=== PATIENT | female | born 1955 | race Caucasian/White ===

== ENCOUNTER 2022-11-25 20:37 | Emergency (ER) | payer MEDICARE, SELFPAY ==
[2022-11-25 20:41] VITALS: BP 132/79; PULSE 79; RESP 18; TEMP 36.6; O2SAT 96
[2022-11-25 21:34] LABS: Bilirubin Urine NEGATIVE (NEGATIVE); Blood Urine TRACE-I (NEGATIVE); Clarity Urine CLEAR (CLEAR); Color Urine LT. YELLOW (YELLOW); Glucose Urine UA NEGATIVE (NEGATIVE); Ketones Urine NEGATIVE (NEGATIVE); Leukocyte Esterase Urine NEGATIVE (NEGATIVE); Nitrite Urine NEGATIVE (NEGATIVE); Protein Urine NEGATIVE (NEG/TRACE); Urobilinogen Urine 0.2 EU/dL (0.2-1.0); pH Urine 5.5 (5.0-9.0)
[2022-11-25 21:35] LABS: Urine Microscopic Indicated NO
--- NOTE | 2022-11-25 21:51 | ED.GENADUL1 ---
HPI - General Adult General Chief complaint: Urogenital-Female Stated complaint: UTI ISSUES Time Seen by Provider: 11/25/22 20:48 Source: patient Mode of arrival: walk-in Limitations: no limitations Related Data Allergies Allergy/AdvReac Type Severity Reaction Status Date / Time No Known Drug Allergies Allergy Verified 11/25/22 20:41 Exam Constitutional Vital Signs - 24 hr 11/25/22 20:41 Temperature 98 F Pulse Rate [Monitor] 79 Respiratory Rate 18 Blood Pressure [Left Arm] 132/79 H Pulse Oximetry 96 Oxygen Delivery Method Room Air Course Vital Signs Vital signs: Vital Signs Temperature 98 F 11/25/22 20:41 Pulse Rate 79 11/25/22 20:41 Respiratory Rate 18 11/25/22 20:41 Blood Pressure 132/79 H 11/25/22 20:41 Pulse Oximetry 96 11/25/22 20:41 Oxygen Delivery Method Room Air 11/25/22 20:41 Temperature 98 F 11/25/22 20:41 Pulse Rate 79 11/25/22 20:41 Respiratory Rate 18 11/25/22 20:41 Blood Pressure 132/79 H 11/25/22 20:41 Pulse Oximetry 96 11/25/22 20:41 Oxygen Delivery Method Room Air 11/25/22 20:41 Medical Decision Making Lab Data Labs: Lab Results 11/25/22 Range/Units 21:20 Urine Color Lt. yellow (YELLOW) Urine Clarity Clear (CLEAR) Urine pH 5.5 (5.0-9.0) Ur Specific [place] 1.020 (1.005-1.025) Urine Protein Negative (NEG/TRACE) mg/dL Urine Glucose (UA) Negative (NEGATIVE) mg/dL Urine Ketones Negative (NEGATIVE) mg/dL Urine Occult Blood Trace-i (NEGATIVE) Urine Nitrite Negative (NEGATIVE) Urine Bilirubin Negative (NEGATIVE) Urine Urobilinogen 0.2 (0.2-1.0) EU/dL Ur Leukocyte Esterase Negative (NEGATIVE) Discharge Plan Discharge Chief Complaint: Urogenital-Female Referrals: Jj Zuñiga MD [Primary Care Provider] - 1 week
[2022-11-25 22:12] LABS: Basophils Percent Auto 0.3 % (0.2-2.0); Eosinophils Absolute Auto 0.2 10^3/uL (0.0-0.7); Eosinophils Percent Auto 2.8 % (0.9-7.0); Hematocrit 45.3 % (36.0-48.0); Hemoglobin 14.8 g/dL (12.0-16.0); Immature Granulocytes Abs Auto 0.01 10^3/uL (0.00-0.03); Immature Granulocytes Pct Auto 0.1 % (0.0-0.5); Lymphocytes Absolute Auto 2.2 10^3/uL (1.2-3.8); Mean Corpuscular HGB Conc 32.7 g/dL (29.9-35.2); Mean Corpuscular Hemoglobin 30.9 pg (26.7-34.0); Mean Corpuscular Volume 94.6 fL (81.0-99.0); Mean Platelet Volume 9.4 fL (9.5-13.5); Monocytes Absolute Auto 0.6 10^3/uL (0.3-0.8); Monocytes Percent Auto 7.5 % (1.7-12.0); Neutrophils Absolute Auto 4.7 10^3/uL (1.4-6.5); Neutrophils Percent Auto 61.3 % (43.0-75.0); Platelet Count 206 10^3/uL (150-450); Red Blood Count 4.79 10^6/uL (4.20-5.40); White Blood Count 7.7 10^3/uL (4.0-11.0)
[2022-11-25 22:27] LABS: Alanine Aminotransferase 49 U/L (14-59); Albumin Level 3.9 g/dL (3.4-5.0); Alkaline Phosphatase 129 U/L (46-116); Anion Gap 12.8; Aspartate Amino Transferase 47 U/L (15-37); BUN Creatinine Ratio 9.7; Bilirubin Total 0.4 mg/dL (0.2-1.0); Calcium 9.3 mg/dL (8.5-10.1); Carbon Dioxide 28.2 mmol/L (21.0-32.0); Chloride 101 mmol/L (98-107); Estimated GFR (African America >60 (>=60); Estimated GFR (Non-African Ame >60 (>=60); Globulin 4.1 g/dL; Glucose 147 mg/dL (74-106); Magnesium 1.6 mg/dL (1.8-2.4); Sodium 139 mmol/L (136-145)
[2022-11-25] MEDS: POTASSIUM CHLORIDE 10 MEQ ER TABLET 40 MEQ PO (23:31)
[2022-11-25] MEDS: MAGNESIUM OXIDE 400 MG TABLET PO (23:32)
--- NOTE | 2022-11-26 04:44 | ED_ITS ---
HPI - General Adult General Chief complaint: Urogenital-Female Stated complaint: UTI ISSUES Time Seen by Provider: 11/25/22 20:48 Source: patient Mode of arrival: walk-in Limitations: no limitations History of Present Illness HPI narrative: the patient coming to the Emergency Room for two days history of diarrhea associated with no abdominal pain no nausea no vomiting the patient did have a history of recurring diarrhea with hypokalemia and she also had a urine test done at home off to her daughter recommended one but she had no burning with urination or any fever or any frequency The patient is coming to the Emergency Room with concern that she could be hypokalemic again because of the diarrhea for the last two days There was no blood in stool Review of systems otherwise negative Related Data Allergies Allergy/AdvReac Type Severity Reaction Status Date / Time No Known Drug Allergies Allergy Verified 11/25/22 20:41 Review of Systems ROS Status of ROS 10 or more systems reviewed and unremarkable except as noted in history and below Exam Narrative Exam Narrative: Nurses notes and vital signs reviewed and patient is not hypoxic. General: Well-appearing and in no apparent distress. Skin: Warm, dry, no pallor noted. No rash. Head: Normocephalic, atraumatic. Neck: Supple, non-tender. Eye: Pupils are equal, round and EOMI. No scleral icterus. Ears, Nose, Mouth, and Throat: TM are clear, no nasal mucosal hypertrophy. Oral mucosa is moist, no posterior oropharynx erythema, uvula is mid-line Cardiovascular: Regular Rate and Rhythm without murmur, gallop or rub. Respiratory: No accessory muscle use or respiratory distress. Lungs are clear to auscultation, no wheezing, rales or rhonchi Chest Wall: no tenderness Back: No midline thoracic or lumbar vertebral tenderness. No CVA tenderness Musculoskeletal: normal ROM, no calf or popliteal tenderness, no lower extremity edema/swelling GI: Abdomen is soft, non-distended. Normal bowel sounds. No masses appreciated. No tenderness to palpation. No rebound, guarding, or rigidity noted. Neurological: A&O x4. No cranial nerve dysfunction observed. No truncal ataxia. Moves all extremities. Sensation intact. Psychiatric: Cooperative and interactive. Normal mood and affect. Constitutional Vital Signs - 24 hr 11/25/22 20:41 Temperature 98 F Pulse Rate [Monitor] 79 Respiratory Rate 18 Blood Pressure [Left Arm] 132/79 H Pulse Oximetry 96 Oxygen Delivery Method Room Air Course Vital Signs Vital signs: Vital Signs Temperature 98 F 11/25/22 20:41 Pulse Rate 79 11/25/22 20:41 Respiratory Rate 18 11/25/22 20:41 Blood Pressure 132/79 H 11/25/22 20:41 Pulse Oximetry 96 11/25/22 20:41 Oxygen Delivery Method Room Air 11/25/22 20:41 Temperature 98 F 11/25/22 20:41 Pulse Rate 79 11/25/22 20:41 Respiratory Rate 18 11/25/22 20:41 Blood Pressure 132/79 H 11/25/22 20:41 Pulse Oximetry 96 11/25/22 20:41 Oxygen Delivery Method Room Air 11/25/22 20:41 Medical Decision Making MDM Narrative Medical decision making narrative: presenting with gastroenteritis symptoms with no nausea or vomiting but only diarrhea for the last two days, five bouts of diarrhea today CBC and chem C should not acute significant pathology except for hypokalemia and hypomagnesemia that is corrected in the Emergency Room with by mouth potassium and magnesium Continue supportive care at home The patient is to followup with primary care physician in next 2-3 days or to return to the emergency department should any of the signs or symptoms worsen or new symptoms develop. The patient agrees with the following Diagnosis and Treatment plan and the patient will be discharged home. Lab Data Labs: Lab Results 11/25/22 11/25/22 Range/Units 21:20 22:06 WBC 7.7 (4.0-11.0) 10^3/uL RBC 4.79 (4.20-5.40) 10^6/uL Hgb 14.8 (12.0-16.0) g/dL Hct 45.3 (36.0-48.0) % MCV 94.6 (81.0-99.0) fL MCH 30.9 (26.7-34.0) pg MCHC 32.7 (29.9-35.2) g/dL RDW 13.0 (11.0-15.0) % Plt Count 206 (150-450) 10^3/uL MPV 9.4 L (9.5-13.5) fL Neut % (Auto) 61.3 (43.0-75.0) % Lymph % (Auto) 28.0 (20.5-60.0) % [place] % (Auto) 7.5 (1.7-12.0) % Eos % (Auto) 2.8 (0.9-7.0) % Baso % (Auto) 0.3 (0.2-2.0) % Neut # (Auto) 4.7 (1.4-6.5) 10^3/uL Lymph # (Auto) 2.2 (1.2-3.8) 10^3/uL [place] # (Auto) 0.6 (0.3-0.8) 10^3/uL Eos # (Auto) 0.2 (0.0-0.7) 10^3/uL Baso # (Auto) 0.0 (0.0-0.1) 10^3/uL Abs Immat Gran (auto) 0.01 (0.00-0.03) 10^3/uL Imm/Tot Granulo (auto) 0.1 (0.0-0.5) % Sodium 139 (136-145) mmol/L Potassium 3.0 L (3.5-5.1) mmol/L Chloride 101 (98-107) mmol/L Carbon Dioxide 28.2 (21.0-32.0) mmol/L Anion Gap 12.8 BUN 9.0 (7.0-18.0) mg/dL Creatinine 0.93 (0.55-1.02) mg/dL Est GFR ( Amer) >60 (>=60) Est GFR (Non-Af Amer) >60 (>=60) BUN/Creatinine Ratio 9.7 Glucose 147 H (74-106) mg/dL Calcium 9.3 (8.5-10.1) mg/dL Magnesium 1.6 L (1.8-2.4) mg/dL Total Bilirubin 0.4 (0.2-1.0) mg/dL AST 47 H (15-37) U/L ALT 49 (14-59) U/L Alkaline Phosphatase 129 H (46-116) U/L Total Protein 8.0 (6.4-8.2) g/dL Albumin 3.9 (3.4-5.0) g/dL Globulin 4.1 g/dL Albumin/Globulin Ratio 1.0 Urine Color Lt. yellow (YELLOW) Urine Clarity Clear (CLEAR) Urine pH 5.5 (5.0-9.0) Ur Specific [place] 1.020 (1.005-1.025) Urine Protein Negative (NEG/TRACE) mg/dL Urine Glucose (UA) Negative (NEGATIVE) mg/dL Urine Ketones Negative (NEGATIVE) mg/dL Urine Occult Blood Trace-i (NEGATIVE) Urine Nitrite Negative (NEGATIVE) Urine Bilirubin Negative (NEGATIVE) Urine Urobilinogen 0.2 (0.2-1.0) EU/dL Ur Leukocyte Esterase Negative (NEGATIVE) Discharge Plan Discharge Chief Complaint: Urogenital-Female Clinical Impression: Gastroenteritis, Acute hypokalemia, Hypomagnesemia Patient Disposition: Home, Self-Care Time of Disposition Decision: 22:52 Mode of Transportation: Private Vehicle Instructions: Hypokalemia (ED) Stand Alone Forms: Portal Instructions Referrals: Jj Zuñiga MD [Primary Care Provider] - 1 week Discharge Date/Time: 11/25/22 23:51
== END 2022-11-25 23:51 | disposition home or self-care (01) ==
PROVIDERS: Emergency Provider Emergency Medicine; PCP Family Medicine
DX: K52.9 Noninfective gastroenteritis and colitis, unspecified (principal); E87.6 Hypokalemia; E83.42 Hypomagnesemia
CPT/HCPCS: 36415; 80053; 81003; 83735; 85025; 87493; 99283

== ENCOUNTER 2022-12-13 13:20 | Outpatient (OUT) | payer MEDICARE, SELFPAY ==
--- NOTE | 2022-12-13 13:55 | XR_ITS ---
The [place] [id number] Patient Name: KELIN WALDRON MRN: [id number] date: 1955 Sex: F Assigned Patient Location: [facility] Current Patient Location: [facility] Accession/Order Number: [id number] Exam Date: 12/13/2022 13:55 Report Date: 12/13/2022 20:47 At the request of: MILADYS ALANIZ Procedure: XR foot LT min 3V PROCEDURE: XR foot LT min 3V COMPARISON: 05/17/2022 HISTORY: LEFT FOOT PAIN FINDINGS: BONES:Partial calcaneal arthroplasty with subtalar fusion. No acute fracture, dislocation or mechanical failure. Contour deformity of the calcaneus suggests remote fracture. Moderate to marked degenerative changes most significant in the midfoot with joint space narrowing marginal osteophyte formation. Diffuse permeative pattern of the bones, osteopenia SOFT TISSUES:Negative. No visible soft tissue swelling. EFFUSION:None visible. OTHER: Negative. IMPRESSION: Stable postsurgical, posttraumatic and degenerative changes with no mechanical failure Electronically authenticated by: IRAIDA CARROLL Date: 12/13/2022 20:47
== END 2022-12-13 13:21 | disposition home or self-care (01) ==
LOC: RAD 13:20
PROVIDERS: PCP Family Medicine; Visit Provider Podiatrist Foot & Ankle Surgery
DX: M79.672 Pain in left foot (principal)
CPT/HCPCS: 73630

== ENCOUNTER 2022-12-15 13:04 | Observation (INO) | payer MEDICARE, SELFPAY ==
[2022-12-15] VITALS (29 sets, daily range): BP systolic 108–137; BP diastolic 70–87; PULSE 76–95; RESP 15–26; TEMP 36.8–37.2; O2SAT 90–98; BMI 27.5; BMI 25.5
--- NOTE | 2022-12-15 13:19 | ECG_ITS ---
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
--- NOTE | 2022-12-15 13:23 | ED.AMS1 ---
HPI - Altered Mental Status General Chief Complaint: Altered Mental Status Stated Complaint: UTI/URINATED ON HERSELF/FEVER/CAN'T STAND OR WALK Time Seen by Provider: 12/15/22 13:07 History of Present Illness HPI narrative: patient is a 67-year-old female to history of rheumatoid arthritis, diabetes who presents to the emergency department with her for the evaluation of altered mental status, urinary incontinence and fever that began this morning on waking. Patient's provides the entire history is the patient is altered, generally weak and unable to add any additional history. He states that the patient was feeling well and at her baseline last night when she went to bed. On waking this morning, the patient has been confused, unable to ambulate and has been incontinent of urine. He reports a temperature at home of 100.5 Fahrenheit. No medications were given for fever prior to arrival, although he did give her potassium pill prior to arrival she has a history of hypokalemia. She has had no recent upper respiratory symptoms, vomiting or diarrhea. No sick contacts in the home. Patient is awake, denies any pain and is alert and oriented to person only at this time. Related Data Home Medications Medication Instructions Recorded Confirmed alendronate 70 mg tablet 70 mg PO DAILY 12/15/22 12/15/22 atorvastatin 10 mg tablet 10 mg PO DAILY 12/15/22 12/15/22 folic acid 1 mg tablet 1 mg PO DAILY 12/15/22 12/15/22 indapamide 2.5 mg tablet 2.5 mg PO DAILY 12/15/22 12/15/22 meloxicam 15 mg tablet 15 mg PO DAILY 12/15/22 12/15/22 metformin 500 mg tablet 500 mg PO BID 12/15/22 12/15/22 methotrexate sodium 2.5 mg tablet 20 mg PO QWEEK 12/15/22 12/15/22 potassium chloride 10 mEq 40 meq PO DAILY 12/15/22 12/15/22 capsule,extended release prednisone 2.5 mg tablet 2.5 mg PO DAILY 12/15/22 12/15/22 trazodone 300 mg tablet 300 mg PO .at night 12/15/22 12/15/22 valacyclovir 500 mg PO DAILY 12/15/22 12/15/22 venlafaxine 75 mg capsule,extended 75 mg PO DAILY 12/15/22 12/15/22 release 24 hr Allergies Allergy/AdvReac Type Severity Reaction Status Date / Time No Known Drug Allergies Allergy Verified 12/15/22 13:19 Review of Systems ROS Constitutional Denies: fever or chills Ears, nose, mouth, and throat Denies: throat pain or neck pain Cardiovascular Denies: chest pain Respiratory Denies: shortness of breath or cough Gastrointestinal Denies: nausea or vomiting Genitourinary Reports: urinary incontinence Integumentary/Breast Denies: rash Neurological Reports: confusion; Denies: headache Allergic/Immunologic Denies: hives PFSH [facility] Social History Smoking status: Never smoker Exam Narrative Exam Narrative: Gen.: Awake, alert, in no distress Head: Normocephalic, atraumatic ENT: Moist mucous membranes Respiratory: No respiratory distress, lungs clear bilaterally Cardio: Regular rate and rhythm Gastrointestinal: Abdomen is soft, nondistended and nontender to palpation Extremities: Moves extremities equally, no injuries noted Psych: Normal mood and affect Neuro: patient is generally weak, requires three people to assist her from wheelchair to exam cart. She sits up on command and is able to raise her arms to remove her shirt, she follows commands to squeeze her hands and wiggle her toes, no unilateral weakness or deficit noted. No slurred speech or facial drooping noted. Skin: Warm, dry, intact Constitutional Vital Signs - 24 hr 12/15/22 13:19 12/15/22 13:24 12/15/22 13:27 Temperature 98.4 F Pulse Rate 94 H Pulse Rate [Monitor] 95 H Respiratory Rate 18 26 H Blood Pressure 127/87 H Blood Pressure [Left Arm] 114/84 H Pulse Oximetry 94 L 91 L Oxygen Delivery Method Room Air 12/15/22 13:27 12/15/22 13:36 12/15/22 13:40 Temperature Pulse Rate 94 H 89 88 Pulse Rate [Monitor] Respiratory Rate 25 H 23 19 Blood Pressure Blood Pressure [Left Arm] Pulse Oximetry 91 L 90 L 91 L Oxygen Delivery Method 12/15/22 13:50 Temperature Pulse Rate 85 Pulse Rate [Monitor] Respiratory Rate 24 Blood Pressure Blood Pressure [Left Arm] Pulse Oximetry 92 L Oxygen Delivery Method Course Vital Signs Vital signs: Vital Signs Temperature 98.4 F 12/15/22 13:19 Pulse Rate 95 H 12/15/22 13:19 Respiratory Rate 18 12/15/22 13:19 Blood Pressure 114/84 H 12/15/22 13:19 Pulse Oximetry 94 L 12/15/22 13:19 Oxygen Delivery Method Room Air 12/15/22 13:19 Temperature 98.4 F 12/15/22 13:19 Pulse Rate 85 12/15/22 13:50 Respiratory Rate 24 12/15/22 13:50 Blood Pressure 127/87 H 12/15/22 13:27 Pulse Oximetry 92 L 12/15/22 13:50 Oxygen Delivery Method Room Air 12/15/22 13:19 MDM - Altered Mental Status MDM Narrative Medical decision making narrative: On arrival to the emergency department, patient was placed and exam cart and immediately sent for stroke protocol CT of the brain and chest x-ray. She was found to have no acute abnormalities of the brain but chest x-ray shows increasing left lung opacity. Blood cultures and sepsis workup were ordered for the patient. She does not have a urinary tract infection. She maintained stable vital signs in the Emergency Room. We will treat for possible pneumonia with Levaquin, patient admitted to her PCP, Dr. Zuñiga for further evaluation and treatment. Last known normal was last night, she may require further testing in the Hospital. Medical Records Attestation: I reviewed the patient's medical records. Lab Data Attestation: I reviewed the patient's lab results. Labs: Lab Results 12/15/22 12/15/22 12/15/22 Range/Units 13:28 13:30 13:43 WBC 8.8 (4.0-11.0) 10^3/uL RBC 4.86 (4.20-5.40) 10^6/uL Hgb 15.0 (12.0-16.0) g/dL Hct 45.3 (36.0-48.0) % MCV 93.2 (81.0-99.0) fL MCH 30.9 (26.7-34.0) pg MCHC 33.1 (29.9-35.2) g/dL RDW 12.5 (11.0-15.0) % Plt Count 183 (150-450) 10^3/uL MPV 9.8 (9.5-13.5) fL Seg Neuts % (Manual) 82.0 Lymphocytes % (Manual) 11.0 L (20.5-60.0) % Monocytes % (Manual) 7.0 (1.7-12.0) % Eosinophils % (Manual) 0.0 L (0.9-7.0) % Basophils % (Manual) 0.0 L (0.2-2.0) % Neutrophils # (Manual) 7.21 H (1.4-6.5) 10^3/uL Lymphocytes # (Manual) 0.96 L (1.20-3.80) 10^3/uL Monocytes # (Manual) 0.61 (0.30-0.80) 10^3/uL Eosinophils # (Manual) 0.00 (0.00-0.70) 10^3/uL Basophils # (Manual) 0.00 (0.00-0.10) 10^3/uL Sodium 134 L (136-145) mmol/L Potassium 3.7 (3.5-5.1) mmol/L Chloride 99 (98-107) mmol/L Carbon Dioxide 26.5 (21.0-32.0) mmol/L Anion Gap 12.2 BUN 13.0 (7.0-18.0) mg/dL Creatinine 1.06 H (0.55-1.02) mg/dL Est GFR ( Amer) >60 (>=60) Est GFR (Non-Af Amer) 52 L (>=60) BUN/Creatinine Ratio 12.3 Glucose 162 H (74-106) mg/dL Lactate 2.0 (0.4-2.0) mmol/L Calcium 9.4 (8.5-10.1) mg/dL Magnesium 1.6 L (1.8-2.4) mg/dL Total Bilirubin 0.5 (0.2-1.0) mg/dL AST 36 (15-37) U/L ALT 40 (14-59) U/L Alkaline Phosphatase 114 (46-116) U/L Ammonia (11-32) umol/L Troponin I High Sens <4.0 L (4.0-51.3) pg/mL Total Protein 8.1 (6.4-8.2) g/dL Albumin 4.0 (3.4-5.0) g/dL Globulin 4.1 g/dL Albumin/Globulin Ratio 1.0 TSH 1.123 (0.358-3.740) uIU/mL Urine Color Yellow (YELLOW) Urine Clarity Clear (CLEAR) Urine pH 7.5 (5.0-9.0) Ur Specific [place] [employer] 1.020 (1.005-1.025) Urine Protein Negative (NEG/TRACE) mg/dL Urine Glucose (UA) Negative (NEGATIVE) mg/dL Urine Ketones Negative (NEGATIVE) mg/dL Urine Occult Blood Small A (NEGATIVE) Urine Nitrite Negative (NEGATIVE) Urine Bilirubin Negative (NEGATIVE) Urine Urobilinogen 1.0 (0.2-1.0) EU/dL Ur Leukocyte Esterase Negative (NEGATIVE) Urine RBC 5-10 A (0-2) #/HPF Urine WBC 0-2 A (NONE SEEN) #/HPF Ur Squamous Epith Cells Few A (NONE/RARE) #/LPF Urine Crystals None seen (None Seen) #/HPF Urine Bacteria Trace A (NONE SEEN) #/HPF Urine Casts Seen A (NONE SEEN) #/LPF Hyaline Casts Rare Urine Mucus Small A (NONE SEEN) Ur Culture Indicated? No POC Glucose 151 H (74-106) mg/dL 12/15/22 Range/Units 13:50 WBC (4.0-11.0) 10^3/uL RBC (4.20-5.40) 10^6/uL Hgb (12.0-16.0) g/dL Hct (36.0-48.0) % MCV (81.0-99.0) fL MCH (26.7-34.0) pg MCHC (29.9-35.2) g/dL RDW (11.0-15.0) % Plt Count (150-450) 10^3/uL MPV (9.5-13.5) fL Seg Neuts % (Manual) Lymphocytes % (Manual) (20.5-60.0) % Monocytes % (Manual) (1.7-12.0) % Eosinophils % (Manual) (0.9-7.0) % Basophils % (Manual) (0.2-2.0) % Neutrophils # (Manual) (1.4-6.5) 10^3/uL Lymphocytes # (Manual) (1.20-3.80) 10^3/uL Monocytes # (Manual) (0.30-0.80) 10^3/uL Eosinophils # (Manual) (0.00-0.70) 10^3/uL Basophils # (Manual) (0.00-0.10) 10^3/uL Sodium (136-145) mmol/L Potassium (3.5-5.1) mmol/L Chloride (98-107) mmol/L Carbon Dioxide (21.0-32.0) mmol/L Anion Gap BUN (7.0-18.0) mg/dL Creatinine (0.55-1.02) mg/dL Est GFR ( Amer) (>=60) Est GFR (Non-Af Amer) (>=60) BUN/Creatinine Ratio Glucose (74-106) mg/dL Lactate (0.4-2.0) mmol/L Calcium (8.5-10.1) mg/dL Magnesium (1.8-2.4) mg/dL Total Bilirubin (0.2-1.0) mg/dL AST (15-37) U/L ALT (14-59) U/L Alkaline Phosphatase (46-116) U/L Ammonia <10 L (11-32) umol/L Troponin I High Sens (4.0-51.3) pg/mL Total Protein (6.4-8.2) g/dL Albumin (3.4-5.0) g/dL Globulin g/dL Albumin/Globulin Ratio TSH (0.358-3.740) uIU/mL Urine Color (YELLOW) Urine Clarity (CLEAR) Urine pH (5.0-9.0) Ur Specific [place] [employer] (1.005-1.025) Urine Protein (NEG/TRACE) mg/dL Urine Glucose (UA) (NEGATIVE) mg/dL Urine Ketones (NEGATIVE) mg/dL Urine Occult Blood (NEGATIVE) Urine Nitrite (NEGATIVE) Urine Bilirubin (NEGATIVE) Urine Urobilinogen (0.2-1.0) EU/dL Ur Leukocyte Esterase (NEGATIVE) Urine RBC (0-2) #/HPF Urine WBC (NONE SEEN) #/HPF Ur Squamous Epith Cells (NONE/RARE) #/LPF Urine Crystals (None Seen) #/HPF Urine Bacteria (NONE SEEN) #/HPF Urine Casts (NONE SEEN) #/LPF Hyaline Casts Urine Mucus (NONE SEEN) Ur Culture Indicated? POC Glucose (74-106) mg/dL Imaging Data CT scan - head: Attestation: I have reviewed the pertinent imaging results. Radiologist's impression: Procedure: CT stroke head/brain wo con CT stroke head/brain wo con, 12/15/2022 1:28 PM EDT INDICATION: Altered mental status COMPARISON: Noncontrast CT of the head 04/28/2022. TECHNIQUE: Axial CT images of the brain from skull base to vertex, including portions of the face and sinuses, were obtained without contrast. Multiplanar reformatted images were generated and reviewed as needed. FINDINGS: No intracranial mass, hydrocephalus, midline shift or acute hemorrhage. No extra-axial collection. Periventricular and deep white matter microvascular ischemic change. Rosenthal-white matter differentiation is preserved. The paranasal sinuses and mastoid air cells are clear. Orbits are within normal limits. No acute skull fracture. IMPRESSION: No acute intracranial abnormality. Electronically authenticated by: MARCELO EUBANKS Date: 12/15/2022 13:43 Chest x-ray: Attestation: I have reviewed the pertinent imaging results. Radiologist's impression: Procedure: XR chest 1V EXAM: XR chest 1V at 1332 hours HISTORY: Altered mental status COMPARISON: 04/28/2022 TECHNIQUE: AP upright portable chest x-ray FINDINGS: Slightly increasing opacity is seen at the left lung base indicating atelectasis or infiltrate. The lungs otherwise clear, without other evidence of a focal infiltrate, effusion or pneumothorax. The heart is not enlarged and the vasculature is not distended. The osseous structures are grossly intact. IMPRESSION: Subtle increasing opacity is seen at the left lung base. This may be due to a small amount of atelectasis or infiltrate. The lungs are otherwise clear, and there is no evidence of cardiac decompensation. Electronically authenticated by: MILADYS MORALES Date: 12/15/2022 13:42 ECG Data Attestation: I personally reviewed and interpreted this ECG as follows: (normal sinus rhythm at a rate of ninety-eight, no acute ST elevation or ectopy. EKG reviewed by attending physician) ECG interpretation date: 12/15/22 ECG interpretation time: 13:46 Discharge Plan Discharge Chief Complaint: Altered Mental Status Patient Disposition: Admitted as Observation Time of Disposition Decision: 14:53 Prescriptions / Home Meds: No Action prednisone 2.5 mg tablet 2.5 mg PO DAILY atorvastatin 10 mg tablet 10 mg PO DAILY venlafaxine 75 mg capsule,extended release 24hr 75 mg PO DAILY trazodone 300 mg tablet 300 mg PO .at night potassium chloride 10 mEq capsule, extended release 40 meq PO DAILY valacyclovir 500 mg PO DAILY metformin 500 mg tablet 500 mg PO BID indapamide 2.5 mg tablet 2.5 mg PO DAILY folic acid 1 mg tablet 1 mg PO DAILY methotrexate sodium 2.5 mg tablet 20 mg PO QWEEK alendronate 70 mg tablet 70 mg PO DAILY meloxicam 15 mg tablet 15 mg PO DAILY Referrals: Jj Zuñiga MD [Primary Care Provider] - 1 week
[2022-12-15 13:31] LABS: Glucometer 151 mg/dL (74-106)
--- NOTE | 2022-12-15 13:31 | XR_ITS ---
The [address] [address] Patient Name: KELIN WALDRON MRN: [id number] date: 1955 Sex: F Assigned Patient Location: ED.MAIN Current Patient Location: ER Accession/Order Number: [id number] Exam Date: 12/15/2022 13:28 Report Date: 12/15/2022 13:42 At the request of: BLU DERAS Procedure: XR chest 1V EXAM: XR chest 1V at 1332 hours HISTORY: Altered mental status COMPARISON: 04/28/2022 TECHNIQUE: AP upright portable chest x-ray FINDINGS: Slightly increasing opacity is seen at the left lung base indicating atelectasis or infiltrate. The lungs otherwise clear, without other evidence of a focal infiltrate, effusion or pneumothorax. The heart is not enlarged and the vasculature is not distended. The osseous structures are grossly intact. IMPRESSION: Subtle increasing opacity is seen at the left lung base. This may be due to a small amount of atelectasis or infiltrate. The lungs are otherwise clear, and there is no evidence of cardiac decompensation. Electronically authenticated by: MILADYS MORALES Date: 12/15/2022 13:42
--- NOTE | 2022-12-15 13:33 | CT_ITS ---
The [address] [address] Patient Name: KELIN WALDRON MRN: [id number] date: 1955 Sex: F Assigned Patient Location: ER Current Patient Location: ER Accession/Order Number: [id number] Exam Date: 12/15/2022 13:28 Report Date: 12/15/2022 13:43 At the request of: BLU DERAS Procedure: CT stroke head/brain wo con CT stroke head/brain wo con, 12/15/2022 1:28 PM EDT INDICATION: Altered mental status COMPARISON: Noncontrast CT of the head 04/28/2022. TECHNIQUE: Axial CT images of the brain from skull base to vertex, including portions of the face and sinuses, were obtained without contrast. Multiplanar reformatted images were generated and reviewed as needed. FINDINGS: No intracranial mass, hydrocephalus, midline shift or acute hemorrhage. No extra-axial collection. Periventricular and deep white matter microvascular ischemic change. Rosenthal-white matter differentiation is preserved. The paranasal sinuses and mastoid air cells are clear. Orbits are within normal limits. No acute skull fracture. IMPRESSION: No acute intracranial abnormality. Electronically authenticated by: MARCELO EUBANKS Date: 12/15/2022 13:43
[2022-12-15 13:36] LABS: Hematocrit 45.3 % (36.0-48.0); Mean Corpuscular HGB Conc 33.1 g/dL (29.9-35.2); Mean Corpuscular Hemoglobin 30.9 pg (26.7-34.0); Mean Corpuscular Volume 93.2 fL (81.0-99.0); Mean Platelet Volume 9.8 fL (9.5-13.5); Platelet Count 183 10^3/uL (150-450); Red Blood Count 4.86 10^6/uL (4.20-5.40); Red Cell Distribution Width 12.5 % (11.0-15.0); White Blood Count 8.8 10^3/uL (4.0-11.0)
[2022-12-15] MEDS: 0.9 % SODIUM CHLORIDE 1,000 ML 1000 ML IV (13:44)
[2022-12-15 14:01] LABS: Alanine Aminotransferase 40 U/L (14-59); Alkaline Phosphatase 114 U/L (46-116); Anion Gap 12.2; Aspartate Amino Transferase 36 U/L (15-37); BUN Creatinine Ratio 12.3; Bilirubin Total 0.5 mg/dL (0.2-1.0); Calcium 9.4 mg/dL (8.5-10.1); Carbon Dioxide 26.5 mmol/L (21.0-32.0); Chloride 99 mmol/L (98-107); Estimated GFR (African America >60 (>=60); Estimated GFR (Non-African Ame 52 (>=60); Globulin 4.1 g/dL; Glucose 162 mg/dL (74-106); Potassium 3.7 mmol/L (3.5-5.1); Sodium 134 mmol/L (136-145); Thyroid Stimulating Hormone 1.123 uIU/mL (0.358-3.740); Total Protein 8.1 g/dL (6.4-8.2); Troponin I High Sensitivity <4.0 pg/mL (4.0-51.3)
[2022-12-15 14:04] LABS: Lymphocytes Absolute Manual 0.96 10^3/uL (1.20-3.80); Monocytes Absolute Manual 0.61 10^3/uL (0.30-0.80); Segmented Neut Absolute Manual 7.21 10^3/uL (1.4-6.5)
[2022-12-15 14:06] LABS: Bilirubin Urine NEGATIVE (NEGATIVE); Blood Urine SMALL (NEGATIVE); Clarity Urine CLEAR (CLEAR); Color Urine YELLOW (YELLOW); Glucose Urine UA NEGATIVE (NEGATIVE); Ketones Urine NEGATIVE (NEGATIVE); Leukocyte Esterase Urine NEGATIVE (NEGATIVE); Nitrite Urine NEGATIVE (NEGATIVE); Protein Urine NEGATIVE (NEG/TRACE); pH Urine 7.5 (5.0-9.0)
[2022-12-15 14:10] LABS: Magnesium 1.6 mg/dL (1.8-2.4)
[2022-12-15 14:11] LABS: Ammonia <10 umol/L (11-32)
[2022-12-15 14:14] LABS: Urine Microscopic Indicated YES
[2022-12-15 14:45] LABS: Mucus Urine SMALL (NONE SEEN)
[2022-12-15 14:46] LABS: Bacteria Urine TRACE #/HPF (NONE SEEN); Cast Seen? SEEN #/LPF (NONE SEEN); Crystals Seen? None Seen #/HPF (None Seen); Hyaline Casts Urine RARE; Squamous Epithelial Cell Urine FEW #/LPF (NONE/RARE); Urine Culture Indicated NO; WBC Urine 0-2 #/HPF (NONE SEEN)
[2022-12-15] MEDS: LEVOFLOXACIN IN DEXTROSE 5 % 750 MG/150 ML PIGGYBACK IV (14:58)
[2022-12-15 15:23] LABS: SARS-CoV-2 Ag NEGATIVE (NEGATIVE)
[2022-12-15 18:09] LABS: Glucometer 101 mg/dL (74-106)
[2022-12-15] MEDS: LACTATED RINGER'S SOLUTION 1,000 ML 50 ML IV (18:17)
[2022-12-15] MEDS: METHYLPREDNISOLONE SOD SUCC PF 40 MG/ML VIAL IVP (18:18)
[2022-12-15 20:11] LABS: Glucometer 171 mg/dL (74-106)
[2022-12-15] MEDS: METFORMIN HCL 500 MG TABLET PO (21:51)
[2022-12-15] MEDS: ATORVASTATIN CALCIUM 10 MG TABLET PO (21:51)
[2022-12-15] MEDS: TRAZODONE HCL 150 MG TABLET 300 MG PO (21:53)
[2022-12-15] MEDS: PROSTAT 15 GM PROTEIN/100 CAL 30 ML LIQUID PACKET PO (21:54)
[2022-12-15] MEDS: INSULIN ASPART 300 UNIT/3 ML PEN SUBQ (22:08)
[2022-12-16] VITALS (8 sets, daily range): BP systolic 115; BP diastolic 77; PULSE 67–89; RESP 18; TEMP 36.6; O2SAT 90–91
[2022-12-16] MEDS: METHYLPREDNISOLONE SOD SUCC PF 40 MG/ML VIAL IVP ×2 (01:11→06:50)
[2022-12-16 05:34] LABS: Basophils Percent Auto 0.1 % (0.2-2.0); Hematocrit 42.8 % (36.0-48.0); Hemoglobin 14.3 g/dL (12.0-16.0); Immature Granulocytes Abs Auto 0.03 10^3/uL (0.00-0.03); Immature Granulocytes Pct Auto 0.4 % (0.0-0.5); Lymphocytes Absolute Auto 0.7 10^3/uL (1.2-3.8); Lymphocytes Percent Auto 10.2 % (20.5-60.0); Mean Corpuscular HGB Conc 33.4 g/dL (29.9-35.2); Mean Corpuscular Hemoglobin 30.8 pg (26.7-34.0); Mean Platelet Volume 10.2 fL (9.5-13.5); Monocytes Absolute Auto 0.1 10^3/uL (0.3-0.8); Monocytes Percent Auto 1.6 % (1.7-12.0); Neutrophils Absolute Auto 5.9 10^3/uL (1.4-6.5); Neutrophils Percent Auto 87.7 % (43.0-75.0); Platelet Count 160 10^3/uL (150-450); Red Blood Count 4.65 10^6/uL (4.20-5.40); Red Cell Distribution Width 12.6 % (11.0-15.0); White Blood Count 6.7 10^3/uL (4.0-11.0)
[2022-12-16 05:54] LABS: Ammonia <11 umol/L (11-32)
[2022-12-16 06:06] LABS: Alanine Aminotransferase 34 U/L (14-59); Albumin Globulin Ratio 0.9; Albumin Level 3.6 g/dL (3.4-5.0); Alkaline Phosphatase 98 U/L (46-116); Anion Gap 12.7; Aspartate Amino Transferase 34 U/L (15-37); BUN Creatinine Ratio 13.8; Bilirubin Total 0.3 mg/dL (0.2-1.0); Calcium 9.6 mg/dL (8.5-10.1); Carbon Dioxide 27.2 mmol/L (21.0-32.0); Chloride 105 mmol/L (98-107); Estimated GFR (African America >60 (>=60); Estimated GFR (Non-African Ame >60 (>=60); Globulin 4.2 g/dL; Glucose 172 mg/dL (74-106); Magnesium 1.8 mg/dL (1.8-2.4); Potassium 3.9 mmol/L (3.5-5.1); Sodium 141 mmol/L (136-145); Total Protein 7.8 g/dL (6.4-8.2)
--- NOTE | 2022-12-16 08:06 | P.HP_ITS ---
H&P: HPI History of Present Illness Chief complaint: UTI/URINATED ON HERSELF/FEVER/CAN'T STAND OR WALK Narrative: Presented to the emergency room with increasing altered mental status. Found to have acute UTI with mild dehydration and is admitted for work-up and treatment of same Review of Systems ROS Status of ROS 10 or more systems reviewed and unremarkable except as noted in history and below Constitutional Denies: fever or chills [facility] Medical History Social History (Updated 12/15/22 @ 16:18 by Mariya Hernandez) Within the past year, how often did you have a drink containing alcohol: never Within the past year, how often did you have six or more drinks on one occasion: never Score interpretation: A score less than 3 is consistent with normal alcohol consumption. 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 Highest level of school completed/degree received: high school graduate Are you now , , , , never or living with a partner: In a typical week, how many times do you talk on the telephone with family, friends, or neighbors: 3 or more times per week How often do you get together with friends or relatives: once per week How often do you attend hinduism or mormonism services: never Do you belong to any clubs or organizations such as hinduism groups unions, fraternal or athletic groups, or school groups: no Total score: 2 Score interpretation: A score of greater than or equal to 2 indicates the lowest level of social isolation. Little interest or pleasure in doing things: not at all Feeling down, depressed, or hopeless: not at all Feel stressed/tense/nervous/anxious/difficulty sleeping: only a little Due to disability, difficulty making decisions: No Do you think of yourself as: straight/heterosexual Gender Identity: female Meds Home Medications and Allergies Home Medications Medication Instructions Recorded Confirmed Type alendronate 70 mg tablet 70 mg PO .ONCE WEEKLY 12/15/22 12/16/22 History atorvastatin 10 mg tablet 10 mg PO .QHS 12/15/22 12/16/22 History folic acid 1 mg tablet 1 mg PO DAILY 12/15/22 12/15/22 History indapamide 2.5 mg tablet 2.5 mg PO DAILY 12/15/22 12/15/22 History meloxicam 15 mg tablet 15 mg PO DAILY 12/15/22 12/15/22 History metformin 500 mg tablet 500 mg PO BID 12/15/22 12/15/22 History methotrexate sodium 2.5 mg tablet 20 mg PO QWEEK 12/15/22 12/15/22 History potassium chloride 10 mEq 40 meq PO DAILY 12/15/22 12/15/22 History capsule,extended release prednisone 2.5 mg tablet 2.5 mg PO DAILY 12/15/22 12/15/22 History trazodone 300 mg tablet 300 mg PO .at night 12/15/22 12/15/22 History venlafaxine 75 mg capsule,extended 75 mg PO DAILY 12/15/22 12/15/22 History release 24 hr levofloxacin 500 mg tablet 500 mg PO DAILY 7 days #7 tabs 12/16/22 Rx pantoprazole 40 mg tablet,delayed 40 mg PO DAILY 12/16/22 12/16/22 History release valacyclovir 500 mg tablet 500 mg PO DAILY 12/16/22 12/16/22 History Allergies Allergy/AdvReac Type Severity Reaction Status Date / Time No Known Drug Allergies Allergy Verified 12/15/22 13:19 Exam Narrative Exam Narrative: Patient feels back to her baseline Constitutional Vital Signs - 24 hr 12/15/22 13:19 12/15/22 13:24 12/15/22 13:27 Temperature 98.4 F Pulse Rate 94 H Pulse Rate [Monitor] 95 H Respiratory Rate 18 26 H Blood Pressure 127/87 H Blood Pressure [Left Arm] 114/84 H Pulse Oximetry 94 L 91 L Oxygen Delivery Method Room Air 12/15/22 13:27 12/15/22 13:36 12/15/22 13:40 Temperature Pulse Rate 94 H 89 88 Pulse Rate [Monitor] Respiratory Rate 25 H 23 19 Blood Pressure Blood Pressure [Left Arm] Pulse Oximetry 91 L 90 L 91 L Oxygen Delivery Method 12/15/22 13:50 12/15/22 14:00 12/15/22 14:10 Temperature Pulse Rate 85 85 84 Pulse Rate [Monitor] Respiratory Rate 24 15 22 Blood Pressure Blood Pressure [Left Arm] Pulse Oximetry 92 L 95 96 Oxygen Delivery Method 12/15/22 14:20 12/15/22 14:30 12/15/22 14:33 Temperature Pulse Rate 85 88 83 Pulse Rate [Monitor] Respiratory Rate 19 19 17 Blood Pressure Blood Pressure [Left Arm] Pulse Oximetry 98 90 L 97 Oxygen Delivery Method 12/15/22 14:34 12/15/22 14:41 12/15/22 14:52 Temperature Pulse Rate 80 84 78 Pulse Rate [Monitor] Respiratory Rate 17 20 21 Blood Pressure 123/82 H 132/72 H 137/70 H Blood Pressure [Left Arm] Pulse Oximetry 97 95 96 Oxygen Delivery Method 12/15/22 15:03 12/15/22 15:10 12/15/22 15:20 Temperature Pulse Rate 77 76 78 Pulse Rate [Monitor] Respiratory Rate 25 H 22 20 Blood Pressure Blood Pressure [Left Arm] Pulse Oximetry 95 96 96 Oxygen Delivery Method 12/15/22 15:30 12/15/22 16:08 12/15/22 16:20 Temperature Pulse Rate 77 76 Pulse Rate [Monitor] Respiratory Rate 19 Blood Pressure Blood Pressure [Left Arm] 119/81 H Pulse Oximetry 96 94 L Oxygen Delivery Method Room Air 12/15/22 16:20 12/15/22 16:48 12/15/22 18:02 Temperature 99 F Pulse Rate 79 83 Pulse Rate [Monitor] Respiratory Rate 20 Blood Pressure Blood Pressure [Left Arm] 119/81 H Pulse Oximetry 94 L 94 L Oxygen Delivery Method Room Air Room Air 12/15/22 20:00 12/15/22 19:58 12/15/22 20:40 Temperature Pulse Rate 83 Pulse Rate [Monitor] Respiratory Rate 20 Blood Pressure Blood Pressure [Left Arm] Pulse Oximetry 90 L Oxygen Delivery Method Room Air 12/15/22 21:30 12/15/22 21:58 12/15/22 23:00 Temperature 98.2 F Pulse Rate 88 86 86 Pulse Rate [Monitor] Respiratory Rate 18 Blood Pressure Blood Pressure [Left Arm] 108/72 Pulse Oximetry 90 L Oxygen Delivery Method Room Air 12/15/22 23:53 12/16/22 01:52 12/16/22 03:49 Temperature Pulse Rate 88 69 73 Pulse Rate [Monitor] Respiratory Rate Blood Pressure Blood Pressure [Left Arm] Pulse Oximetry Oxygen Delivery Method 12/16/22 04:54 12/16/22 05:25 12/16/22 07:57 Temperature 97.8 F Pulse Rate 80 89 Pulse Rate [Monitor] Respiratory Rate 18 Blood Pressure Blood Pressure [Left Arm] 115/77 Pulse Oximetry 91 L 91 L Oxygen Delivery Method Room Air Room Air Respiratory Common normals: normal respiratory effort Cardio Common normals: regular rate, regular rhythm and no murmurs GI Common normals: Normal to inspection, nondistended, normoactive bowel sounds present, soft to palpation and non-tender Neuro Common normals: oriented x3 and CN's II-XII intact bilaterally Results Labs Labs: Short CBC 12/15/22 12/16/22 Range/Units 13:28 04:40 WBC 8.8 6.7 (4.0-11.0) 10^3/uL Hgb 15.0 14.3 (12.0-16.0) g/dL Hct 45.3 42.8 (36.0-48.0) % Plt Count 183 160 (150-450) 10^3/uL BMP 12/15/22 12/16/22 13:28 04:40 Sodium 134 L 141 Potassium 3.7 3.9 Chloride 99 105 Carbon Dioxide 26.5 27.2 BUN 13.0 12.0 Creatinine 1.06 H 0.87 Glucose 162 H 172 H Calcium 9.4 9.6 Liver Function 12/15/22 12/16/22 Range/Units 13:28 04:40 Total Bilirubin 0.5 0.3 (0.2-1.0) mg/dL AST 36 34 (15-37) U/L ALT 40 34 (14-59) U/L Alkaline Phosphatase 114 98 (46-116) U/L Albumin 4.0 3.6 (3.4-5.0) g/dL Urine 12/15/22 Range/Units 13:43 Urine Color Yellow (YELLOW) Urine Clarity Clear (CLEAR) Urine pH 7.5 (5.0-9.0) Ur Specific Lewis 1.020 (1.005-1.025) Urine Protein Negative (NEG/TRACE) mg/dL Urine Glucose (UA) Negative (NEGATIVE) mg/dL Assessment and Plan Assessment and Plan (1) Altered mental status: (2) Community acquired pneumonia: Plan Altered mental status secondary to acute UTI-cultures are pending but patient is improving, she is eating well, she denies cough so the chest x-ray suggestive of pneumonia is unlikely. Antibiotics would likely cover that in case it is early pneumonia, but without cough that seems unlikely. The patient is eating and ambulating well later today she can be discharged to home in improving condition. Medications see list. Follow-up with me in the office within the next week.
[2022-12-16] MEDS: METFORMIN HCL 500 MG TABLET PO (09:25)
[2022-12-16] MEDS: VENLAFAXINE HCL ER 75 MG CAPSULE PO (09:26)
[2022-12-16] MEDS: MELOXICAM 7.5 MG TABLET 15 MG PO (09:26)
[2022-12-16] MEDS: POTASSIUM CHLORIDE 10 MEQ ER TABLET 40 MEQ PO (09:26)
[2022-12-16] MEDS: FOLIC ACID 1 MG TABLET PO (09:26)
[2022-12-16] MEDS: VALACYCLOVIR HCL 500 MG TABLET PO (09:26)
[2022-12-16 11:04] LABS: Glucometer 173 mg/dL (74-106)
[2022-12-16 15:36] LABS: SARS-CoV-2 NAA NOT DETECTED (NOT DETECTE)
--- NOTE | 2022-12-18 16:20 | CM.DCFOLLOWU ---
Person spoke with: Alison How are you feeling? Good How is your pain? No pain Did you understand your discharge instructions? yes Do you have any questions about your discharge instructions? no Were you given any prescriptions at discharge? yes Were you able to get your prescriptions filled? yes Do you understand how to take your medications as ordered? yes Do you have any questions about your follow up appointment and do you plan to keep your follow up appointment? No still need to schedule Is there anything else that you would like to discuss? no Questions/Comments/Concerns/Other:
== END 2022-12-16 13:18 | disposition home or self-care (01) ==
LOC: ER 14:53 → MS 16:12
PROVIDERS: Physician Assistant; Admitting Provider Family Medicine; Emergency Provider Emergency Medicine; PCP Family Medicine; Visit Provider Family Medicine
DX: N39.0 Urinary tract infection, site not specified (principal); E86.0 Dehydration; F17.210 Nicotine dependence, cigarettes, uncomplicated; Z79.899 Other long term (current) drug therapy; Z79.84 Long term (current) use of oral hypoglycemic drugs
CPT/HCPCS: 36415; 36416; 70450; 71045; 80053; 81001; 81003; 81015; 82140; 82948; 83605; 83735; 83880; 84443; 84484; 85007; 85025; 85027; 87040; 87086; 87635; 87811; 93005; 94667; 94761; 96361; 96374; 96375; 96376; 99285; G0378; J2920

== ENCOUNTER 2022-12-29 11:55 | Outpatient (OUT) | payer MEDICARE, SELFPAY ==
[2022-12-29 14:09] LABS: Bilirubin Urine NEGATIVE (NEGATIVE); Blood Urine TRACE-I (NEGATIVE); Clarity Urine CLEAR (CLEAR); Color Urine YELLOW (YELLOW); Glucose Urine UA NEGATIVE (NEGATIVE); Ketones Urine TRACE mg/dL (NEGATIVE); Leukocyte Esterase Urine NEGATIVE (NEGATIVE); Nitrite Urine NEGATIVE (NEGATIVE); Protein Urine TRACE mg/dL (NEG/TRACE); Specific Gravity Urine 1.025 (1.005-1.025)
[2022-12-29 14:17] LABS: Bacteria Urine NONE SEEN #/HPF (NONE SEEN); Mucus Urine SMALL (NONE SEEN); Squamous Epithelial Cell Urine MODERATE #/LPF (NONE/RARE); WBC Urine NONE SEEN #/HPF (NONE SEEN)
== END 2022-12-29 11:56 | disposition home or self-care (01) ==
PROVIDERS: PCP Family Medicine; Visit Provider Family Medicine
DX: R30.0 Dysuria (principal)
CPT/HCPCS: 81001; 87086

== ENCOUNTER 2023-05-26 10:43 | Outpatient (OUT) | payer MEDICARE, SELFPAY ==
[2023-05-26 10:53] LABS: Basophils Percent Auto 0.5 % (0.2-2.0); Eosinophils Absolute Auto 0.3 10^3/uL (0.0-0.7); Eosinophils Percent Auto 4.6 % (0.9-7.0); Hematocrit 45.3 % (36.0-48.0); Hemoglobin 14.8 g/dL (12.0-16.0); Immature Granulocytes Abs Auto 0.02 10^3/uL (0.00-0.03); Immature Granulocytes Pct Auto 0.3 % (0.0-0.5); Lymphocytes Absolute Auto 1.5 10^3/uL (1.2-3.8); Lymphocytes Percent Auto 23.3 % (20.5-60.0); Mean Corpuscular HGB Conc 32.7 g/dL (29.9-35.2); Mean Corpuscular Hemoglobin 30.3 pg (26.7-34.0); Mean Corpuscular Volume 92.8 fL (81.0-99.0); Monocytes Absolute Auto 0.6 10^3/uL (0.3-0.8); Monocytes Percent Auto 10.1 % (1.7-12.0); Neutrophils Absolute Auto 3.9 10^3/uL (1.4-6.5); Neutrophils Percent Auto 61.2 % (43.0-75.0); Platelet Count 208 10^3/uL (150-450); Red Blood Count 4.88 10^6/uL (4.20-5.40); Red Cell Distribution Width 13.1 % (11.0-15.0); White Blood Count 6.4 10^3/uL (4.0-11.0)
[2023-05-26 11:30] LABS: Estimated Average Glucose 134 mg/dL; Glycohemoglobin A1C 6.3 % (4.5-6.2)
[2023-05-26 11:54] LABS: Alanine Aminotransferase 39 U/L (14-59); Albumin Level 3.9 g/dL (3.4-5.0); Alkaline Phosphatase 90 U/L (46-116); Anion Gap 12.9; Aspartate Amino Transferase 30 U/L (15-37); BUN Creatinine Ratio 10.9; Bilirubin Total 0.5 mg/dL (0.2-1.0); Calcium 8.8 mg/dL (8.5-10.1); Carbon Dioxide 30.7 mmol/L (21.0-32.0); Chloride 100 mmol/L (98-107); Cholesterol 146 mg/dL (<=200); Estimated GFR (African America >60 (>=60); Estimated GFR (Non-African Ame >60 (>=60); Free T3 2.57 pg/mL (2.18-3.98); Globulin 3.8 g/dL; Glucose 120 mg/dL (74-106); HDL Cholesterol 48 mg/dL (40-60); LDL Cholesterol Calculated 75.2 mg/dL; Potassium 3.6 mmol/L (3.5-5.1); Sodium 140 mmol/L (136-145); Thyroid Stimulating Hormone 1.586 uIU/mL (0.358-3.740); Total Protein 7.7 g/dL (6.4-8.2); Triglycerides 114 mg/dL (<=150); VLDL CHOLESTEROL 22.8 mg/dL
[2023-05-26 15:16] LABS: Occult Blood Negative
== END 2023-05-26 10:44 | disposition home or self-care (01) ==
LOC: LAB 10:43
PROVIDERS: PCP Family Medicine; Visit Provider Family Medicine
DX: M19.079 Primary osteoarthritis, unspecified ankle and foot (principal); F32.A Depression, unspecified; I10 Essential (primary) hypertension; E78.00 Pure hypercholesterolemia, unspecified; R73.09 Other abnormal glucose; Z12.12 Encounter for screening for malignant neoplasm of rectum; D64.9 Anemia, unspecified; M06.9 Rheumatoid arthritis, unspecified; R74.01 Elevation of levels of liver transaminase levels
CPT/HCPCS: 36415; 80053; 80061; 83036; 83540; 84436; 84443; 84481; 85025; G0328

== ENCOUNTER 2023-09-04 13:56 | Outpatient (RCR) | payer MEDICARE, SELFPAY | END 2023-10-20 13:22 | disposition home or self-care (01) | LOC: PT 13:56 | PROVIDERS: PCP Family Medicine; Visit Provider Family Medicine | DX: M19.072 Primary osteoarthritis, left ankle and foot (principal) | CPT/HCPCS: 77063; 77067; 97110; 97112; 97116; 97162; 97530 ==

== ENCOUNTER 2023-11-16 14:14 | Outpatient (OUT) | payer MEDICARE, SELFPAY ==
[2023-11-16 14:34] LABS: Basophils Absolute Auto 0.1 10^3/uL (0.0-0.1); Basophils Percent Auto 0.7 % (0.2-2.0); Eosinophils Absolute Auto 0.3 10^3/uL (0.0-0.7); Eosinophils Percent Auto 3.4 % (0.9-7.0); Hematocrit 45.8 % (36.0-48.0); Hemoglobin 14.5 g/dL (12.0-16.0); Immature Granulocytes Abs Auto 0.03 10^3/uL (0.00-0.03); Immature Granulocytes Pct Auto 0.3 % (0.0-0.5); Lymphocytes Percent Auto 21.8 % (20.5-60.0); Mean Corpuscular HGB Conc 31.7 g/dL (29.9-35.2); Mean Corpuscular Hemoglobin 28.3 pg (26.7-34.0); Mean Corpuscular Volume 89.3 fL (81.0-99.0); Mean Platelet Volume 9.8 fL (9.5-13.5); Monocytes Absolute Auto 0.6 10^3/uL (0.3-0.8); Monocytes Percent Auto 6.7 % (1.7-12.0); Neutrophils Absolute Auto 6.1 10^3/uL (1.4-6.5); Neutrophils Percent Auto 67.1 % (43.0-75.0); Platelet Count 284 10^3/uL (150-450); Red Blood Count 5.13 10^6/uL (4.20-5.40); Red Cell Distribution Width 12.7 % (11.0-15.0); White Blood Count 9.1 10^3/uL (4.0-11.0)
[2023-11-16 15:15] LABS: Alanine Aminotransferase 31 U/L (14-59); Albumin Globulin Ratio 0.9; Albumin Level 3.9 g/dL (3.4-5.0); Alkaline Phosphatase 135 U/L (46-116); Anion Gap 12.1; Aspartate Amino Transferase 33 U/L (15-37); BUN Creatinine Ratio 11.4; Bilirubin Total 0.3 mg/dL (0.2-1.0); Calcium 9.1 mg/dL (8.5-10.1); Carbon Dioxide 31.4 mmol/L (21.0-32.0); Chloride 99 mmol/L (98-107); Estimated GFR (African America >60 (>=60); Estimated GFR (Non-African Ame >60 (>=60); Globulin 4.4 g/dL; Glucose 123 mg/dL (74-106); Potassium 3.5 mmol/L (3.5-5.1); Sodium 139 mmol/L (136-145); Total Protein 8.3 g/dL (6.4-8.2)
== END 2023-11-16 14:15 | disposition home or self-care (01) ==
LOC: LAB 14:16
PROVIDERS: PCP Family Medicine
DX: M06.9 Rheumatoid arthritis, unspecified (principal); R74.01 Elevation of levels of liver transaminase levels
CPT/HCPCS: 36415; 80053; 85025

== ENCOUNTER 2024-06-26 10:55 | Outpatient (OUT) | payer MEDICARE, SELFPAY ==
[2024-06-26 11:19] LABS: Basophils Percent Auto 0.4 % (0.2-2.0); Eosinophils Absolute Auto 0.3 10^3/uL (0.0-0.7); Eosinophils Percent Auto 2.7 % (0.9-7.0); Hematocrit 45.2 % (36.0-48.0); Hemoglobin 14.8 g/dL (12.0-16.0); Immature Granulocytes Abs Auto 0.03 10^3/uL (0.00-0.03); Immature Granulocytes Pct Auto 0.3 % (0.0-0.5); Mean Corpuscular HGB Conc 32.7 g/dL (29.9-35.2); Mean Corpuscular Hemoglobin 28.1 pg (26.7-34.0); Mean Corpuscular Volume 85.9 fL (81.0-99.0); Mean Platelet Volume 9.7 fL (9.5-13.5); Monocytes Absolute Auto 0.8 10^3/uL (0.3-0.8); Monocytes Percent Auto 6.6 % (1.7-12.0); Neutrophils Absolute Auto 8.2 10^3/uL (1.4-6.5); Platelet Count 328 10^3/uL (150-450); Red Blood Count 5.26 10^6/uL (4.20-5.40); Red Cell Distribution Width 13.6 % (11.0-15.0); White Blood Count 11.3 10^3/uL (4.0-11.0)
[2024-06-26 12:08] LABS: Estimated Average Glucose 154 mg/dL
[2024-06-26 12:43] LABS: Alanine Aminotransferase 20 U/L (14-59); Alkaline Phosphatase 83 U/L (46-116); Anion Gap 14.1; Aspartate Amino Transferase 18 U/L (15-37); BUN Creatinine Ratio 13.8; Bilirubin Total 0.4 mg/dL (0.2-1.0); Calcium 9.6 mg/dL (8.5-10.1); Carbon Dioxide 29.6 mmol/L (21.0-32.0); Chloride 101 mmol/L (98-107); Cholesterol 165 mg/dL (<=200); Estimated GFR (African America >60 (>=60 mL/min/1.73m^2); Estimated GFR (Non-African Ame 59 (>=60 mL/min/1.73m^2); Globulin 4.2 g/dL; Glucose 107 mg/dL (74-106); HDL Cholesterol 41 mg/dL (40-60); Potassium 3.7 mmol/L (3.5-5.1); Sodium 141 mmol/L (136-145); Thyroid Stimulating Hormone 1.634 uIU/mL (0.358-3.740); Total Protein 8.2 g/dL (6.4-8.2); Triglycerides 173 mg/dL (<=150); VLDL CHOLESTEROL 34.6 mg/dL
== END 2024-06-26 10:56 | disposition home or self-care (01) ==
LOC: LAB 10:59
PROVIDERS: PCP Family Medicine; Visit Provider Family Medicine
DX: Z00.00 Encounter for general adult medical examination without abnormal findings (principal); R53.83 Other fatigue; R73.09 Other abnormal glucose; I10 Essential (primary) hypertension
CPT/HCPCS: 36415; 80053; 80061; 83036; 84436; 84443; 84481; 85025

== ENCOUNTER 2025-05-21 17:22 | Emergency (ER) | payer MEDICARE, SELFPAY ==
[2025-05-21] VITALS (50 sets, daily range): BP systolic 110–158; BP diastolic 69–115; PULSE 95–117; TEMP 37.1; O2SAT 91–96; BMI 23.7
--- NOTE | 2025-05-21 17:37 | ECG_ITS ---
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 Measurements Intervals [place] Rate: 114 P: 111 NM: 150 QRS: 46 QRSD: 90 T: 7 QT: 354 QTc: 422 Interpretive Statements 1120 Sinus tachycardia 2420 RSR (QR) in lead V1/V2, consistent with right ventricular conduction delay 4068 Nonspecific [place] abnormality 9140 abnormal rhythm ECG Compared to ECG 12/15/2022 13:24:23 Sinus rhythm no longer present Electronically Signed On 05-21-2025 20:52:46 EST by JAYDEN TIM M.D.
--- NOTE | 2025-05-21 17:37 | XR_ITS ---
The [address] [address] Patient Name: KELIN WALDRON MRN: [id number] date: 1955 Sex: F Assigned Patient Location: ER Current Patient Location: ED.MAIN Accession/Order Number: [id number] Exam Date: 05/21/2025 18:12 Report Date: 05/21/2025 18:48 At the request of: WALTER ORDONEZ MD Procedure: XR chest 1V PA CHEST: CLINICAL HISTORY: Altered mental status COMPARISON: 12/15/2022 Unremarkable cardiomediastinal silhouette. Lungs clear. No effusion or pneumothorax. XR/XR chest 1V IMPRESSION: NEGATIVE ACUTE PLEURAL-PARENCHYMAL DISEASE. Impression dictated by: Obdulio Martin M.D. 05/21/2025 6:48 PM Dictation Location: [place] [address] Electronically authenticated by: [id number] Y Date: 05/21/2025 18:48
--- NOTE | 2025-05-21 17:37 | CT_ITS ---
The [address] [address] Patient Name: KELIN WALDRON MRN: [id number] date: 1955 Sex: F Assigned Patient Location: ER Current Patient Location: [facility] Accession/Order Number: [id number] Exam Date: 05/21/2025 18:12 Report Date: 05/21/2025 18:52 At the request of: WALTER ORDONEZ MD Procedure: CT head/brain wo con CT BRAIN WITHOUT CONTRAST: CLINICAL HISTORY: Altered mental status COMPARISON: 03/17/2023 TECHNIQUE: Contiguous axial unenhanced images were obtained through the brain. This CT exam was performed using one or more following dose reduction techniques: Automated exposure control, adjustment of the mA and/or kV according to patient size, or use of iterative reconstruction technique. FINDINGS: There is no evidence of midline shift, intra or extra-axial fluid collection, hemorrhage or CT evidence of acute large vascular distribution stroke. Soft tissues changes and chronic small vessel ischemic disease. There are vascular disease. Visualized intraorbital contents appear unremarkable. Mild ethmoid sinus mucosal thickening. The surrounding soft tissues are normal. CT/CT head/brain wo con IMPRESSION: NO ACUTE INTRACRANIAL ABNORMALITY. CHRONIC SMALL VESSEL ISCHEMIC DISEASE. Impression dictated by: Obdulio Martin M.D. 05/21/2025 6:52 PM Dictation Location: [place] [address] Electronically authenticated by: [id number] Y Date: 05/21/2025 18:52
[2025-05-21 17:43] LABS: Hematocrit 45.6 % (36.0-48.0); Hemoglobin 15.2 g/dL (12.0-16.0); Immature Granulocytes Abs Auto 0.05 10^3/uL (0.00-0.03); Immature Granulocytes Pct Auto 0.3 % (0.0-0.5); Lymphocytes Absolute Auto 2.6 10^3/uL (1.2-3.8); Mean Corpuscular HGB Conc 33.3 g/dL (29.9-35.2); Mean Corpuscular Hemoglobin 27.2 pg (26.7-34.0); Mean Corpuscular Volume 81.7 fL (81.0-99.0); Platelet Count 368 10^3/uL (150-450); Red Blood Count 5.58 10^6/uL (4.20-5.40); White Blood Count 14.3 10^3/uL (4.0-11.0)
--- NOTE | 2025-05-21 17:47 | ED.GENADUL1 ---
HPI HPI - General Adult General Chief complaint: Altered Mental Status Stated complaint: ALTERED MENTAL STATUS Time Seen by Provider: 05/21/25 17:32 Source: other Source information: ems Mode of arrival: ambulance Limitations: altered mental status History of Present Illness HPI narrative: 69-year-old female presents for altered mental status by squad from home. No family members are present to give any history and the patient is not able to provide any history. It is not clear when this started. Related Data Home Medications ?Medication ?Instructions ?Recorded ?Confirmed alendronate 70 mg tablet 70 mg PO .ONCE WEEKLY 12/15/22 12/16/22 atorvastatin 10 mg tablet 10 mg PO .QHS 12/15/22 12/16/22 folic acid 1 mg tablet 1 mg PO DAILY 12/15/22 12/15/22 indapamide 2.5 mg tablet 2.5 mg PO DAILY 12/15/22 12/15/22 meloxicam 15 mg tablet 15 mg PO DAILY 12/15/22 12/15/22 metformin 500 mg tablet 500 mg PO BID 12/15/22 12/15/22 methotrexate sodium 2.5 mg tablet 20 mg PO QWEEK 12/15/22 12/15/22 potassium chloride 10 mEq 40 meq PO DAILY 12/15/22 12/15/22 capsule,extended release prednisone 2.5 mg tablet 2.5 mg PO DAILY 12/15/22 12/15/22 trazodone 300 mg tablet 300 mg PO .at night 12/15/22 12/15/22 venlafaxine 75 mg capsule,extended 75 mg PO DAILY 12/15/22 12/15/22 release 24 hr pantoprazole 40 mg tablet,delayed 40 mg PO DAILY 12/16/22 12/16/22 release valacyclovir 500 mg tablet 500 mg PO DAILY 12/16/22 12/16/22 Previous Rx's ?Medication ?Instructions ?Recorded levofloxacin 500 mg tablet 500 mg PO DAILY 7 days #7 tabs 12/16/22 Allergies Allergy/AdvReac Type Severity Reaction Status Date / Time No Known Drug Allergies Allergy Verified 12/15/22 13:19 Review of Systems ROS Narrative Not obtainable, patient not oriented [facility] Medical History Social History (Updated 12/15/22 @ 16:18 by Mariya Hernandez) Within the past year, how often did you have a drink containing alcohol: never Within the past year, how often did you have six or more drinks on one occasion: never Score interpretation: A score less than 3 is consistent with normal alcohol consumption. 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 Highest level of school completed/degree received: high school graduate Are you now , , , , never or living with a partner: In a typical week, how many times do you talk on the telephone with family, friends, or neighbors: 3 or more times per week How often do you get together with friends or relatives: once per week How often do you attend bahai or episcopal services: never Do you belong to any clubs or organizations such as bahai groups unions, fraternal or athletic groups, or school groups: no Total score: 2 Score interpretation: A score of greater than or equal to 2 indicates the lowest level of social isolation. Little interest or pleasure in doing things: not at all Feeling down, depressed, or hopeless: not at all Feel stressed/tense/nervous/anxious/difficulty sleeping: only a little Due to disability, difficulty making decisions: No Do you think of yourself as: straight/heterosexual Gender Identity: female Exam Narrative Exam Narrative: Nurses note and vital signs reviewed General:The patient appears in no acute respiratory distress Skin:Warm, dry, no pallor noted.There is no rash noted. Head:Normocephalic, atraumatic Eye: Normal conjunctiva, no drainage, EOMI. PERRL Ears, Nose, Mouth, and Throat: oral mucosa is dry with dried secretions. Nares patent. Cardiovascular:Regular Rate and Rhythm, mildly tachycardic Respiratory:Patient is in no distress, no accessory muscle use, lungs are clear to auscultation, no wheezing, rales or rhonchi Back:non-tender GI: Soft and nontender Musculoskeletal: The patient has no evidence of calf tenderness, no pitting edema, symmetrical pulses noted bilaterally Neurological: She is awake and alert. She knows her name but does not know the year. She knows where she is. She is not sure why she is here. Psychiatric:Cooperative Constitutional Vital Signs, click to edit/add: Last Vital Signs Temp 98.8 F 05/21/25 17:24 Pulse 111 H 05/21/25 17:24 Resp 16 05/21/25 17:24 BP 155/111 H 05/21/25 17:24 Pulse Ox 92 L 05/21/25 17:24 O2 Del Method Room Air 05/21/25 17:24 Course Vital Signs Vital signs: Vital Signs Temperature 98.8 F 05/21/25 17:24 Pulse Rate 111 H 05/21/25 17:24 Respiratory Rate 16 05/21/25 17:24 Blood Pressure 155/111 H 05/21/25 17:24 Pulse Oximetry 92 L 05/21/25 17:24 Oxygen Delivery Method Room Air 05/21/25 17:24 Temperature 98.8 F 05/21/25 17:24 Pulse Rate 111 H 05/21/25 17:24 Respiratory Rate 16 05/21/25 17:24 Blood Pressure 155/111 H 05/21/25 17:24 Pulse Oximetry 92 L 05/21/25 17:24 Oxygen Delivery Method Room Air 05/21/25 17:24 Medical Decision Making Lab Data Labs: Lab Results 05/21/25 Range/Units 17:30 WBC 14.3 H (4.0-11.0) 10^3/uL RBC 5.58 H (4.20-5.40) 10^6/uL Hgb 15.2 (12.0-16.0) g/dL Hct 45.6 (36.0-48.0) % MCV 81.7 (81.0-99.0) fL MCH 27.2 (26.7-34.0) pg MCHC 33.3 (29.9-35.2) g/dL RDW 14.4 (11.0-15.0) % Plt Count 368 (150-450) 10^3/uL MPV 10.0 (9.5-13.5) fL Neut % (Auto) 73.1 (43.0-75.0) % Lymph % (Auto) 17.9 L (20.5-60.0) % [place] % (Auto) 7.0 (1.7-12.0) % Eos % (Auto) 1.3 (0.9-7.0) % Baso % (Auto) 0.4 (0.2-2.0) % Neut # (Auto) 10.4 H (1.4-6.5) 10^3/uL Lymph # (Auto) 2.6 (1.2-3.8) 10^3/uL [place] # (Auto) 1.0 H (0.3-0.8) 10^3/uL Eos # (Auto) 0.2 (0.0-0.7) 10^3/uL Baso # (Auto) 0.1 (0.0-0.1) 10^3/uL Abs Immat Gran (auto) 0.05 H (0.00-0.03) 10^3/uL Imm/Tot Granulo (auto) 0.3 (0.0-0.5) % ECG Data Attestation: I personally reviewed and interpreted this ECG as follows: (EKG on my interpretation shows sinus rhythm with a rate of 114.) Discharge Plan Discharge Chief Complaint: Altered Mental Status Prescriptions / Home Meds: No Action prednisone 2.5 mg tablet 2.5 mg PO DAILY atorvastatin 10 mg tablet 10 mg PO .QHS venlafaxine 75 mg capsule,extended release 24hr 75 mg PO DAILY trazodone 300 mg tablet 300 mg PO .at night potassium chloride 10 mEq capsule, extended release 40 meq PO DAILY metformin 500 mg tablet 500 mg PO BID indapamide 2.5 mg tablet 2.5 mg PO DAILY folic acid 1 mg tablet 1 mg PO DAILY methotrexate sodium 2.5 mg tablet 20 mg PO QWEEK alendronate 70 mg tablet 70 mg PO .ONCE WEEKLY meloxicam 15 mg tablet 15 mg PO DAILY levofloxacin 500 mg tablet 500 mg PO DAILY 7 Days Qty: 7 0RF pantoprazole 40 mg tablet,delayed release (DR/EC) 40 mg PO DAILY valacyclovir 500 mg tablet 500 mg PO DAILY Print Language: Singaporean Referrals: Jj Zuñiga MD [Primary Care Provider, Family Practice] - 1 week
[2025-05-21 17:56] LABS: Alanine Aminotransferase 16 U/L (14-59); Albumin Globulin Ratio 0.7; Albumin Level 3.6 g/dL (3.4-5.0); Alkaline Phosphatase 78 U/L (46-116); Anion Gap 15.3; Aspartate Amino Transferase 19 U/L (15-37); Blood Urea Nitrogen 7.0 mg/dL (7.0-18.0); Calcium 9.4 mg/dL (8.5-10.1); Carbon Dioxide 29.1 mmol/L (21.0-32.0); Chloride 96 mmol/L (98-107); Estimated GFR (African America >60 (>=60 mL/min/1.73m^2); Estimated GFR (Non-African Ame >60 (>=60 mL/min/1.73m^2); Globulin 5.0 g/dL; Glucose 150 mg/dL (74-106); Lactate/Lactic Acid 1.1 mmol/L (0.4-2.0); Potassium 3.4 mmol/L (3.5-5.1); Sodium 137 mmol/L (136-145); Total Protein 8.6 g/dL (6.4-8.2)
[2025-05-21] MEDS: 0.9 % SODIUM CHLORIDE 1,000 ML 1000 ML IV (17:56)
[2025-05-21 18:15] LABS: Glucose Urine UA NEGATIVE (NEGATIVE)
--- OUTSIDE RECORDS SUMMARY | 2025-05-21 18:20 | XMS_ITS | CCD ---
Author Organization [facility] Care Team Providers Care Apple Checker Name Role Phone KATTY PETER D Admitting Unavailable HIGHLANDER, PETER D Attending Unavailable HOY ., DR DAWSON Primary Care Unavailable LINCOLNWOOD, DR IRAIDA Aj Consulting Unavailable HIGHLANDER, PETER D Consulting Unavailable HIGHLANDER, PETER D Admitting Unavailable HIGHLANDER, PETER D Attending Unavailable HOY ., DR DAWSON Primary Care Unavailable HIGHLANDER, PETER D Consulting Unavailable HOY ., DR DAWSON Admitting Unavailable HOY ., DR DAWSON Attending Unavailable HOY ., DR DAWSON Primary Care Unavailable HIGHLANDER, PETER D Admitting Unavailable HIGHLANDER, PETER D Attending Unavailable HOY ., DR DAWSON Primary Care Unavailable LINCOLNWOOD, DR IRAIDA Aj Consulting Unavailable HIGHLANDER, PETER D Consulting Unavailable HIGHLANDER, PETER D Admitting Unavailable HIGHLANDER, PETER D Attending Unavailable HOY ., DR DAWSON Primary Care Unavailable HIGHLANDER, MILADYS Koenig Consulting Unavailable CASSIA SHELBY Consulting Unavailable HOY ., DR DAWSON Primary Care Unavailable HOY ., DR DAWSON Admitting Unavailable HOY ., DR DAWSON Attending Unavailable HOY ., DR DAWSON Consulting Unavailable ZIEBER, DR CASSIA Lunsford Consulting Unavailable PAY ., DR NELSON Consulting Unavailable HOY ., DR DAWSON Primary Care Unavailable HOY ., DR DAWSON Admitting Unavailable HOY ., DR DAWSON Attending Unavailable HOY ., DR DAWSON Consulting Unavailable BLACK ., DR FEDERICA Guillen Consulting Unavailable ZIEBMONISHA, DR CASSIA Lunsford Consulting Unavailable GHASSANANDER, MILADYS Koenig Consulting Unavailable CASSIA CARROLL Consulting Unavailable CONCEPCION HILL Consulting Unavailable VAISHNAVI SAUCEDO Consulting Unavailable AYPARTHA .JUANY Consulting Unavailable CASSIA CORDOVA Consulting Unavailable MISC, DR OSEGUERA Admitting Unavailable MISC, DR OSEGUERA Attending Unavailable HOY ., DR DAWSON Primary Care Unavailable LINCOLNWOOD, DR IRAIDA Aj Consulting Unavailable MISC, DR OSEGUERA Consulting Unavailable GHASSANANDER, PETER D Admitting Unavailable HIGHLANDER, PETER D Attending Unavailable HOY ., DR DAWSON Primary Care Unavailable ZIEBER, DR CASSIA Lunsford Consulting Unavailable HIGHLANDER, PETER D Consulting Unavailable HIGHLANDER, PETER D Admitting Unavailable HIGHLANDER, PETER D Attending Unavailable HOY ., DR DAWSON Primary Care Unavailable MISC, DR OSEGUERA Admitting Unavailable MISC, DR OSEGUERA Attending Unavailable HOY ., DR DAWSON Primary Care Unavailable MISC, DR OSEGUERA Consulting Unavailable HIGHLANDER, PETER D Admitting Unavailable HIGHLANDER, PETER D Attending Unavailable HOY ., DR DAWSON Primary Care Unavailable ZIEBER, DR CASSIA Lunsford Consulting Unavailable HIGHLANDER, PETER D Consulting Unavailable MISC, DR OSEGUERA Admitting Unavailable MISC, DR OSEGUERA Attending Unavailable HOY ., DR DAWSON Primary Care Unavailable WEST, DR IRAIDA Aj Consulting Unavailable MISC, DR OSEGUERA Consulting Unavailable HIGHLANDER, PETER D Admitting Unavailable HIGHLANDER, PETER D Attending Unavailable HOY ., DR DAWSON Primary Care Unavailable ZIEBER, DR CASSIA Lunsford Consulting Unavailable HIGHLANDER, PETER D Consulting Unavailable HIGHLANDER, PETER D Admitting Unavailable HIGHLANDER, PETER D Attending Unavailable HOY ., DR DAWSON Primary Care Unavailable WEST, DR IRAIDA Aj Consulting Unavailable HIGHLANDER, PETER D Consulting Unavailable ELIZABETH, JAQUAN Consulting Unavailable RADHA ., CADY CABRERA Consulting Unavailable MORGOS, MATI Consulting Unavailable HIGHLANDER, PETER D Admitting Unavailable HIGHLANDER, PETER D Attending Unavailable HOY ., DR DAWSON Primary Care Unavailable HOY ., DR DAWSON Consulting Unavailable HIGHLANDER, PETER D Consulting Unavailable SHITAL, TOPHER Admitting Unavailable SHITAL, TOPHER Attending Unavailable HOY ., DR DAWSON Primary Care Unavailable WEST, DR IRAIDA Aj Consulting Unavailable SHITAL, TOPHER Consulting Unavailable HIGHLANDER, PETER D Admitting Unavailable HIGHLANDER, PETER D Attending Unavailable HOY ., DR DAWSON Primary Care Unavailable HIGHLANDER, PETER D Consulting Unavailable AG, ESCOBAR Consulting Unavailable HIGHLANDER, PETER D Admitting Unavailable HIGHLANDER, PETER D Attending Unavailable HOY ., DR DAWSON Primary Care Unavailable HIGHLANDER, PETER D Consulting Unavailable AG, ESCOBAR Consulting Unavailable MISC, DR OSEGUERA Admitting Unavailable MISC, DR OSEGUERA Attending Unavailable HOY ., DR DAWSON Primary Care Unavailable MISC, DR OSEGUERA Consulting Unavailable PEYTON, GERARD Attending Unavailable PEYTON, GERARD Attending Unavailable PEYTON, GERARD Attending Unavailable Problems Active Problems Problem ClassificationProblemDateDocumented DateEpisodic/ChronicAnxiety disorders (1 source)Anxiety disorder, unspecified; Translations: [ANXIETY DISORDER UNSPECIFIED]Onset: 53-05-6598ZhavysvPolwixv ulcer of skin (2 sources)Non-pressure chronic ulcer of skin of other sites with unspecified severity; Translations: [Pressure ulcer of left heel, unspecified stage]Onset: 13-92-6210TtjhispNsircgrfpru and hemorrhagic disorders (1 source)Thrombocytopenia, unspecified; Translations: [THROMBOCYTOPENIA UNSPECIFIED]Onset: 33-10-1710KhyfyccExkvymjn, dementia, and amnestic and other cognitive disorders (1 source)Delirium due to known physiological condition; Translations: [DELIRIUM DUE KNOWN PHYSIOLOG COND]Onset: 90-67-6273SgxpxocMxgtvqkg mellitus with complications (1 source)Type 2 diabetes mellitus with diabetic polyneuropathy; Translations: [TYPE 2 DM W/DIABETIC POLYNEUROPATHY]Onset: 46-40-2623TxkcfeyDvtqajxw mellitus without complication (1 source)Type 2 diabetes mellitus without complications; Translations: [TYPE 2 DM WITHOUT COMPLICATIONS]Onset: 30-21-7870NaljhwnYbizbyyq of white blood cells (2 sources)Neutropenia, unspecified; Translations: [Elevated white blood cell count, unspecified]Onset: 32-96-9451HfraomdSwpbkqdee of lipid metabolism (1 source)Pure hypercholesterolemia, unspecified; Translations: [PURE HYPERCHOLESTEROLEMIA UNSPEC]Onset: 07-32-6318AklozmfB Codes: Fall (2 sources)Unspecified fall, initial encounter; Translations: [Unspecified fall, initial encounter]Onset: 89-04-4966YjifwfxbNfgjjaqqq hypertension (1 source)Essential (primary) hypertension; Translations: [ESSENTIAL PRIMARY HYPERTENSION]Onset: 29-16-2257YkqotprTuyp disorders (1 source)Major depressive disorder, single episode, unspecified; Translations: [KRISTEN DEPRESS D/O SINGLE EPIS UNS]Onset: 90-63-1906JfdxdjjAznyzdfswsv deficiencies (1 source)Unspecified severe protein-calorie malnutrition; Translations: [UNS SEVERE PROTEIN-CALORIE MLNUTRIT]Onset: 19-88-4537RbxkrzjRnruqmzgnorued (6 sources)Primary osteoarthritis, left ankle and foot; Translations: [Unspecified osteoarthritis, unspecifiedsite]Onset: 59-06-9072Udvdfnv Osteoporosis (7 sources)Age-related osteoporosis without current pathological fracture; Translations: [AGE-REL OSTEOPOR W/OCURR PATH FX]Onset: 61-88-0115JzihnuuSolxc hereditary and degenerative nervous system conditions (1 source)Restless legs syndrome; Translations: [RESTLESS LEGS SYNDROME]Onset: 44-62-9280MxdzivaRqrcwhlsnwac fracture (2 sources)Age-related osteoporosis with current pathological fracture, unspecified site, subsequent encounterfor fracture with delayed healing; Translations: [Age-related osteoporosis with current pathological fracture, unspecified site, subsequent encounter for fracture with delayed healing]Onset: 16-44-9846HplabkmdHazjxvtwfj arthritis and related disease (13 sources)Rheumatoid arthritis, unspecified; Translations: [Rheumatoid arthritis with rheumatoid factor, unspecified]Onset: 44-48-3956BjhbschBkufbnhxz- related disorders (1 source)Nicotine dependence, cigarettes, uncomplicated; Translations: [NICOTINE DEPEND CIGARETTES UNCOMP]Onset: 07-55-1156QubpgkbYhtncnzbpxej (1 source)PERSONAL HISTORY OF COVID-19; Translations: [PERSONAL HISTORY OF COVID-19]Onset: 09-26-0370Bnqqyxiknztq (1 source)CONTACT W/AND (SUSP) EXPOS COVID-19; Translations: [CONTACT W/AND (SUSP) EXPOS COVID-19]Onset: 73-53-7700Ukxnfkwbopcf (1 source)Encounter for testing for latent tuberculosis infection; Translations: [ENC FOR TESTNG FOR LATENT TB INFECT]Onset: 64-52-6400Tjhzcjqmfcpk (1 source)Elevation of levels of liver transaminase levels; Translations: [Elevation of levels of liver transaminase levels]Onset: 02-13-2023 Past or Other Problems Problem ClassificationProblemDateDocumented DateEpisodic/Chronic Administrative/social admission (1 source)Persons encountering health services in other specified circumstances; Translations: [PERS ENC HLTHSRVC OTH CIRCUMSTANCE]Onset: 84-06-6128Dmqowsri Cardiac dysrhythmias (1 source)Tachycardia, unspecified; Translations: [TACHYCARDIA UNSPECIFIED] Onset: 79-94-1438PgmzdusrLdpjiwdxyqtvu of surgical procedures or medical care (5 sources)Disruption of external operation (surgical) wound, not elsewhere classified, initial encounter; Translations: [DISRUPT EXT OP SURG WOUND NEC INIT]Onset: 59-83-5983GqdmoezaLutiajhy of mouth; excluding dental (1 source)Recurrent oral aphthae; Translations: [RECURRENT ORAL APHTHAE]Onset: 16-73-1863PqqmpxffUmlbm of unknown origin (1 source)Fever, unspecified; Translations: [FEVER UNSPECIFIED]Onset: 12-30-2021 EpisodicFluid and electrolyte disorders (5 sources)Hypo-osmolality and hyponatremia; Translations: [Dehydration]Onset: 04-47-6063BacsoqslWznmzyxb of lower limb (6 sources)Nondisplaced intraarticular fracture of left calcaneus, subsequent encounter for fracture with malunion; Translations: [Unspecified fracture of left calcaneus, subsequent encounter for fracture with malunion]Onset: 19-08-8012FefcsphyDbqoicu (1 source)Tinea corporis; Translations: [TINEA CORPORIS]Onset: 05-04-2022 EpisodicOther aftercare (1 source)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; Translations: [NURSING HOME CURRENT USE OF ASPIRIN]Onset: 50-40-3999LibdycjbKrdve aftercare (1 source)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 of oral hypoglycemic drugs; Translations: [NURSING HOME USE ORAL HYPOGLYCEMIC DX]Onset: 83-79-7825PtveuliyHvawz aftercare (1 source)Other alf (current) drug therapy; Translations: [OTH LEGAL ARCHIVIST CURRENT DRUG THERAPY]Onset: 03-41-9059KrgdnnxwEcria circulatory disease (4 sources)Other specified symptoms and signs involving the circulatory and respiratory systems; Translations:[OTH SPEC SX SIGNS INVLV CIRC RS]Onset: 52-78-5926QhwusfvkVynwg connective tissue disease (1 source)Arthrodesis status; Translations: [ARTHRODESIS STATUS]Onset: 85-94-0323ZqxotdylOhime connective tissue disease (5 sources)Pain in left foot; Translations: [PAIN IN LEFT FOOT]Onset: 02-08-2022 EpisodicOther connective tissue disease (2 sources)Trochanteric bursitis, right hip; Translations: [Trochanteric bursitis, right hip]Onset: 61-85-5758PjprnwqzWlyxn gastrointestinal disorders (1 source)Dysphagia, unspecified; Translations: [DYSPHAGIA UNSPECIFIED]Onset: 11-37-4581DkflslnmOecef non-traumatic joint disorders (4 sources)Pain in unspecified joint; Translations: [PAIN IN UNSPECIFIED JOINT] Onset: 26-14-1941OnibtfwpQyqpw non-traumatic joint disorders (1 source)Other specified joint disorders, left ankle and foot; Translations: [OTHER SPEC JOINT D/O LT ANKLE FOOT]Onset: 57-38-5275RgedejrtRdtjl non-traumatic joint disorders (4 sources)Pain in left ankle and joints of left foot; Translations: [PAIN IN LEFT ANKLE]Onset: 43-55-3963OmtichjaRjwoa nutritional; endocrine; and metabolic disorders (1 source)Body mass index (BMI) 26.0-26.9, adult; Translations: [BODY MASS INDEX BMI 26.0-26.9 ADULT]Onset: 50-90-4596CnrgweaaIttsv screening for suspected conditions (not mental disorders or infectious disease) (1 source)Other specified abnormal findings of blood chemistry; Translations: [OTH SPEC ABNORMAL FINDINGS BLDCHEM]Onset: 99-09-2866RrjiiaqoApzcfbwf codes; unclassified (1 source)Sleep disorder, unspecified; Translations: [SLEEP DISORDER UNSPECIFIED]Onset: 69-96-1174WogsryrjFajafkkj codes; unclassified (1 source)Disorientation, unspecified; Translations: [DISORIENTATION UNSPECIFIED]Onset: 48-18-2255WcuourfxRaoewndqy and history of mental health and substance abuse codes (1 source)Personal history of nicotine dependence; Translations: [PERSONAL HISTORY OF NICOTINE DEPEND]Onset: 17-06-8846NjzqftcvPnqbmuwhznop (1 source)Elevation of levels of liver transaminase levels; Translations: [Elevation of levels of liver transaminase levels]Onset: 40-67-3399Xujzh infection (2 sources)Viral infection, unspecified; Translations: [Herpesviral infection, unspecified]Onset: 68-65-5340Obbnhzno Results Test NameValueInterpretationReference RangeFacilityFollow-Upon 11-19-2023 Follow-[id number] Alison Thurston 1955 F Date Provider Department Center 11/19/2023 GERARD CORRIGAN [facility] Family History Family history unknown: Yes Level of Service:78237 DE OFFICE/OUTPATIENT ESTABLISHED MOD MDM 30 MIN (GC) Reason for Visit and Comments: Follow-up [[id number]][facility] Onlyon 77-99-3742Oiuvrr [id number] Alison Thurston 1955 F Date Provider Department Center 11/16/2023 GEM MENSAH [facility] Family History Family history unknown: YesNormalUniversity [facility]36on [id number] review Last visit 05/29/2023 Upcoming visit 11/13/2023 Last CMP 05/26/2023 Last Office note 05/29/2023 P: -Continue to hold Prednisone -We believe she is in remission and will monitor her off of medications -Gave dose pack in case of flaresNormalUniFlower HospitalRefill on [id number] Laura Thurstonyl 1955 F Date Provider Department Center 11/03/2023 GEM MENSAH [facility] Family History Family history unknown: Yes Reason for Visit and Comments: Med Refill [[id number]][facility] Hospital[facility]Upon 48-83-1550Xbsqfv-[id number] Laura Thurstonyl 1955 F Date Provider Department Center 05/29/2023 GERARD CORRIGAN [facility] Family History Family history unknown: Yes Level of Service:07424 DE OFFICE/OUTPATIENT ESTABLISHED LOW MDM 20-29 MIN (GC) Reason for Visit and Comments: Follow-up [[id number]][facility]36on [id number] from patient rescheduling her appointment for 05/22 because she has not her labs drawn. LAB orders faxed to [facility] [phone] Hospital-Upon 02-13-2023 Follow-[id number] Laura Thurstonyl 1955 F Date Provider Department Center 02/13/2023 Anil-GERARD TODD [facility] Family History Family history unknown: Yes Level of Service:44102 DE OFFICE/OUTPATIENT ESTABLISHED MOD MDM 30-39 MIN (GC) Reason for Visit and Comments: Follow-up [[id number]][facility] HospitalRefillon 01-21-2023 [id number] Alison Thurston 1955 F Date Provider Department Center 01/21/2023 Anil-GERARD TODD [facility] Family History Family history unknown: Yes Reason for Visit and Comments: Med Refill [[id number]][facility] HospitalCBC AUTO DIFFon [id number] #0.1 103/ulNormal0.0-0.1The [facility] HospitalComment on above: Performed By: #### PERSMR #### [facility] [address] [place] [address] Dr. Wesley VillegasBasophils/100 WBC (Bld)0.6 %Normal0.2-2.0[facility] Comment on above:Performed By: #### PERSMR #### [facility] [address] [place] [address] Dr. Wesley Howard #0.1 103/ulNormal0.0-0.7The [facility] HospitalComment on above: Performed By: #### PERSMR #### [facility] [address] [place] [address] Dr. Wesley Goldbergosinophils/100 WBC (Bld)0.7 %Critically low0.9-7.0The [facility] HospitalComment on above:Performed By: #### PERSMR #### [facility] [address] [place] [address] Dr. Wesley Goldbergrythrocyte distribution width (RBC) [Ratio]12.7 %Yjpozm43.0-15.0 The [facility] HospitalComment on above:Performed By: #### PERSMR #### [facility] [address] [place] [address] Dr. Yilan ChangHematocrit (Bld) [Volume fraction]43.4 %Kixoxq52.0-48.0The [facility] HospitalComment on above:Performed By: #### PERSMR #### [facility] [address] [place] [address] Dr. Wesley VillegasHemoglobin (Bld) [Mass/Vol]14.3 g/rXMydqja54.0-16.0The [facility] HospitalComment on above:Performed By: #### PERSMR #### [facility] [address] [place] [address] Dr. Wesley Emery #0.03 10e3/ulNormal0.00-0.03The [facility] HospitalComment on above:Performed By: #### PERSMR #### [facility] [address] [place] [address] Dr. Wesley Emery %0.4 %Normal0.0-0.5The [facility] HospitalComment on above: Performed By: #### PERSMR #### [facility] [address] [place] [address] Dr. Wesley Vee #1.4 103/ulNormal1.2-3.8The [facility] HospitalComment on above:Performed By: #### PERSMR #### [facility] [address] [place] [address] Dr. Wesley Redmphocytes/100 WBC (Bld)16.7 %Critically low20.5-60.0The [facility] HospitalComment on above:Performed By: #### PERSMR #### [facility] [address] [place] [address] Dr. Wesley VillegasMANUAL DIFF REQNONormalThe [facility] HospitalComment on above: Performed By: #### PERSMR #### [facility] [address] [place] [address] Dr. Wesley Araujo (RBC) [Entitic mass]31.8 ccXdilqi66.7-34.0The [facility] HospitalComment on above:Performed By: #### PERSMR #### [facility] [address] [place], [place] [id number] Dr. Wesley ShieldsHC (RBC) [Mass/Vol]32.9 g/eGRdrpms60.9-35.2The [facility] HospitalComment on above:Performed By: #### PERSMR #### [facility] [address] [place] [address] Dr. Wesley ShieldsV (RBC) [Entitic vol]96.4 zMOmzgfw12.0-99.0The [facility] HospitalComment on above:Performed By: #### PERSMR #### [facility] [address] [place] [address] Dr. Wesley Corbett #0.3 103/ulNormal0.3-0.8The [facility] HospitalComment on above:Performed By: #### PERSMR #### [facility] [address] [place] [address] Dr. Wesley Mcgillocytes/100 WBC (Bld)3.0 %Normal1.7-12.0The [facility] Comment on above:Performed By: #### PERSMR #### [facility] [address] [place] [address] Dr. Wesley SmithUT #6.5 103/ulNormal1.4-6.5The [facility] HospitalComment on above:Performed By: #### PERSMR #### [facility] [address] [place] [address] Dr. Wesley Smithutrophils/100 WBC (Bld)78.6 %Critically high43.0-75.0The [facility] HospitalComment on above:Performed By: #### PERSMR #### [facility] [address] [place] [address] Dr. Wesley Thurstonlet mean volume (Bld) [Entitic vol]10.2 fLNormal9.5-13.5The [facility] HospitalComment on above:Performed By: #### PERSMR #### [facility] [address] [place] [address] Dr. Wesley VillegasPLT205 103/ebAilbqr188-167Ulp [facility] HospitalComment on above: Performed By: #### PERSMR #### [facility] [address] [place] [address] Dr. Wesley VillegasRBC4.50 106/ulNormal4.20-5.40The [facility] HospitalComment on above:Performed By: #### PERSMR #### [facility] [address] [place] [address] Dr. Wesley VillegasWBC8.3 103/ulNormal4.0-11.0The [facility] HospitalComment on above: Performed By: #### PERSMR #### [facility] [address] [place] [address] Dr. Wesley VillegasPROF 14(COMP METB)on 51-43-6783Qofjrax [Mass/Vol]3.9 g/dLNormal 3.4-5.0The [facility] HospitalComment on above:Performed By: #### PERSMR #### [facility] [address] [place] [address] Dr. Wesley VillegasAlbumin/Globulin [Mass ratio]1.1 {ratio}NormalThe [facility] HospitalComment on above:Performed By: #### PERSMR #### [facility] [address] [place] [address] Dr. Wesley Yancey [Catalytic activity/Vol]129 U/LCritically sxpo02-049Zmp [facility] HospitalComment on above:Performed By: #### PERSMR #### [facility] [address] [place] [address] Dr. Wesley Shepherd [Catalytic activity/Vol]67 U/LCritically hywg98-97Rta [facility] HospitalComment on above:Performed By: #### PERSMR #### [facility] [address] [place] [address] Dr. Wesley Calvo gap [Moles/Vol]11.0 mmol/LNormalThe [facility] on above:Performed By: #### PERSMR #### [facility] [address] [place] [address] Dr. Wesley Enamorado [Catalytic activity/Vol]52 U/LCritically cwrj88-67Tvz [facility] HospitalComment on above:Performed By: #### PERSMR #### [facility] [address] [address] [address] Wesley VillegasBilirubin [Mass/Vol]0.3 mg/dLNormal0.2-1.0The [facility] Comment on above:Performed By: #### PERSMR #### [facility] [address] [address] [address] Wesley VillegasCalcium [Mass/Vol]9.9 mg/dLNormal8.5-10.1The [facility] Comment on above:Performed By: #### PERSMR #### [facility] [address] [address] [address] Wesley VillegasChloride [Moles/Vol]99 mmol/IDlqahe64-445Rar [facility] Comment on above:Performed By: #### PERSMR #### [facility] [address] [address] [address] Wesley VillegasCO2 [Moles/Vol]32.2 mmol/LCritically high21.0-32.0The [facility] HospitalComment on above:Performed By: #### PERSMR #### [facility] [address] [place] [address] Dr. Wesley VillegasCreatinine [Mass/Vol]0.95 mg/dLNormal0.55-1.02The [facility] HospitalComment on above:Performed By: #### PERSMR #### [facility] [address] [address] [address] Wesley GoldbergGFR-AF GHANAIAN>60Normal>=60The [facility] HospitalComment on above:Performed By: #### PERSMR #### [facility] [address] [address] [address] Wesley GoldbergGFR-NON AF LEHOYBGR83 mL/min/1.76j8Obqsruvsll low>=60The [facility] HospitalComment on above:Performed By: #### PERSMR #### [facility] [address] [place] [address] Dr. Wesley VillegasGlobulin (S) [Mass/Vol]3.5 g/dLNormalThe [facility] HospitalComment on above:Performed By: #### PERSMR #### [facility] [address] [address] [address] Wesley VillegasGlucose [Mass/Vol]243 mg/dLCritically qytt95-074Pih [facility] HospitalComment on above:Performed By: #### PERSMR #### [facility] [address] [place] [address] Dr. Wesley VillegasPotassium [Moles/Vol]4.2 mmol/LNormal3.5-5.1The [facility] Comment on above:Performed By: #### PERSMR #### [facility] [address] [place] [address] Dr. Wesley VillegasProtein [Mass/Vol]7.4 g/dLNormal6.4-8.2The [facility] Comment on above:Performed By: #### PERSMR #### [facility] [address] [place] [address] Dr. Wesley Sladedium [Moles/Vol]138 mmol/NOkocvu474-717Zig [facility] Comment on above:Performed By: #### PERSMR #### [facility] [address] [place] [address] Dr. Wesley VillegasUrea nitrogen [Mass/Vol]16.0 mg/dLNormal7.0-18.0The [facility] HospitalComment on above:Performed By: #### PERSMR #### [facility] [address] [place] [address] Dr. Wesley VillegasUrea nitrogen/Creatinine [Mass ratio]16.8 mg/mgNormalThPremier Health Miami Valley HospitalComment on above:Performed By: #### PERSMR #### [facility] [address] [place] [address] Dr. Wesley Borden [id number] peptide B (Bld) [Mass/Vol]602.0 pg/mL Normal<=900.0The [facility] HospitalComment on above:Performed By: #### CBC #### [facility] [address] [place] [address] Dr. Wesley Langston W MANUAL DIFFon [id number] LYMPH #NormalThe [facility] HospitalComment on above:Performed By: #### PERSMR #### [facility] [address] [place] [address] Dr. Wesley VillegasATYPICAL LYMPH %NormalThe [facility]sonville HospitalComment on above: Performed By: #### PERSMR #### [facility] [address] [place] [address] Dr. Wesley Edwards #0.0 103/ulNormal0.0-0.3The [facility] HospitalComment on above:Performed By: #### PERSMR #### [facility] [address] [place] [address] Dr. Wesley Edwards %0 %Normal0-5The [facility] HospitalComment on above:Performed By: #### PERSMR #### [facility] [address] [place] [address] Dr. Wesley Lion #0.00 103/ulNormal0.00-0.10The [facility] HospitalComment on above:Performed By: #### PERSMR #### [facility] [address] [place] [address] Dr. Wesley Lion %0.0 %Critically low0.2-2.0The [facility] HospitalComment on above:Performed By: #### PERSMR #### [facility] [address] [place] [address] Dr. Wesley Villareal #NormalThe [facility] HospitalComment on above:Performed By: #### PERSMR #### [facility] [address] [place] [address] Dr. Wesley Villareal %NormalThe [facility] HospitalComment on above:Performed By: #### PERSMR #### [facility] [address] [place] [address] Dr. Wesley VillegasCORRECTED WBCNormal4.0-11.0The [facility] HospitalComment on above: Performed By: #### PERSMR #### [facility] [address] [place] [address] Dr. Wesley Reyes #0.00 103/ulNormal0.00-0.70The [facility] HospitalComment on above:Performed By: #### PERSMR #### [facility] [address] [place] [address] Dr. Wesley Reyes%0.0 %Critically low0.9-7.0The [facility] HospitalComment on above:Performed By: #### PERSMR #### [facility] [address] [place] [address] Dr. Wesley BlackburnT34.6 %Critically low36.0-48.0The [facility] HospitalComment on above:Performed By: #### PERSMR #### [facility] [address] [place] [address] Dr. Wesley VillegasHGB11.8 g/dlCritically low12.0-16.0The [facility] HospitalComment on above:Performed By: #### PERSMR #### [facility] [address] [place] [address] Dr. Wesley Gale #0.42 103/ulCritically low1.20-3.80The [facility] Comment on above:Performed By: #### PERSMR #### [facility] [address] [place] [address] Dr. Wesley Gale%14.0 %Critically low20.5-60.0The [facility] HospitalComment on above:Performed By: #### PERSMR #### [facility] [address] [place] [address] Dr. Wesley VillegasMCH31.4 lcPumbcy62.7-34.0The [facility] HospitalComment on above: Performed By: #### PERSMR #### [facility] [address] [place] [address] Dr. Wesley ShieldsHC34.1 g/rbFttnlc27.9-35.2The [facility] HospitalComment on above:Performed By: #### PERSMR #### [facility] [address] [place] [address] Dr. Wesley ShieldsV92.0 hDPwvoyk83.0-99.0The [facility] HospitalComment on above: Performed By: #### PERSMR #### [facility] [address] [address] [address] Wesley AlonzoOCYTE #NormalThe [facility] HospitalComment on above: Performed By: #### PERSMR #### [facility] [address] [address] [address] Wesley AlonzoOCYTE %NormalCleveland Clinic Mercy Hospital HospitalComment on above: Performed By: #### PERSMR #### [facility] [address] [address] [address] Wesley Gaspar#0.00 103/ulCritically low0.30-0.80The [facility] on above:Performed By: #### PERSMR #### [facility] [address] [place] [address] Dr. Wesley Gaspar%0.0 %Critically low1.7-12.0The [facility] HospitalComment on above:Performed By: #### PERSMR #### [facility] [address] [place] [address] Dr. Wesley VillegasMPV10.4 fLNormal9.5-13.5The [facility] HospitalComment on above: Performed By: #### PERSMR #### [facility] [address] [place] [address] Dr. Wesley Reyna #NormalFostoria City HospitalComment on above:Performed By: #### PERSMR #### [facility] [address] [place] [address] Dr. Wesley Reyna %NormalFostoria City HospitalComment on above:Performed By: #### PERSMR #### [facility] [address] [place] [address] Dr. Wesley VillegasNRBCNormalThPremier Health Miami Valley HospitalComment on above:Performed By: #### PERSMR #### [facility] [address] [address] [address] Wesley SullivanT45 103/ulCritically mll215-110Anc [facility] HospitalComment on above:Performed By: #### PERSMR #### [facility] [address] [address] [address] Wesley DwyerC3.76 106/ulCritically low4.20-5.40The [facility] HospitalComment on above:Performed By: #### PERSMR #### [facility] [address] [place] [address] Dr. Wesley VillegasRDW13.9 %Qpqtjs19.0-15.0The [facility] HospitalComment on above: Performed By: #### PERSMR #### [facility] [address] [place] [address] Dr. Wesley Torrez #2.58 103/ulNormal1.40-6.50The [facility] HospitalComment on above:Performed By: #### PERSMR #### [facility] [address] [place] [address] Dr. Wesley Torrez %86.0 %Critically high43.0-75.0The [facility] HospitalComment on above:Performed By: #### PERSMR #### [facility] [address] [place] [address] Dr. Wesely GuyBC3.0 103/ulCritically low4.0-11.0The [facility] HospitalComment on above:Performed By: #### PERSMR #### [facility] [address] [place] [address] Dr. Wesley Cid PANEL (PCR)on 27-[birth year]-1962Lnrvbwmbaz F 40/41Not detectedNormal NOT DETECTEDThe [facility] HospitalComment on above:Performed By: #### GIPANEL #### [facility] [address] [place] [address] Dr. Wesley VillegasAstrovirusNot detectedNormalNOT DETECTEDThe [facility] on above:Performed By: #### GIPANEL #### [facility] [address] [place] [address] Dr. Wesley Ahmadi. Diff toxin A/BNot detectedNormalNOT DETECTEDThe [facility] HospitalComment on above:Performed By: #### ALVERTOL #### [facility] [address] [address] [address] Wesley GriffinpylobacterNot detectedNormalNOT DETECTEDThe [facility] Comment on above:Performed By: #### GIPANEL #### [facility] [address] [address] [address] Wesley VillegasCryptosporidiumNot detectedNormalNOT DETECTEDThe [facility] HospitalComment on above:Performed By: #### GIPANEL #### [facility] [address] [address] [address] Wesley Chaseos. CayetanensisNot detectedNormalNOT DETECTEDThe [facility] HospitalComment on above:Performed By: #### GIPANEL #### [facility] [address] [address] [address] Wesley Goldberg. Coli F749Ozs ApplicableNormalNot ApplicableThe [facility] HospitalComment on above:Performed By: #### GIPANEL #### [facility] [address] [address] [address] Wesley Goldberg. histolyticaNot detectedNormalNOT DETECTEDThe [facility] Comment on above:Performed By: #### ROMARIOANEL #### [facility] [address] [address] [address] Wesley GoldbergAECNot detectedNormalNOT DETECTEDThe [facility] HospitalComment on above:Performed By: #### ROMARIOANEL #### [facility] [address] [address] [address] Wesley GoldbergIECNot detectedNormalNOT DETECTEDThe [facility] HospitalComment on above:Performed By: #### GIPANEL #### [facility] [address] [address] [address] Wesley GoldbergPECNot detectedNormalNOT DETECTEDThe [facility] HospitalCommunson healthcare [facility] on above:Performed By: #### GIPANEL #### [facility] [address] [address] [address] Wesley GoldbergTECNot detectedNormalNOT DETECTEDThe [facility] HospitalComment on above:Performed By: #### GIPANEL #### [facility] [address] [address] [address] Wesley Calixto LambliaNot detectedNormalNOT DETECTEDFostoria City Hospital Comment on above:Performed By: #### ROMARIOANEL #### [facility] [address] [address] [address] Wesley MCCORMICKPASSSt. Elizabeth HospitalComment on above:Performed By: #### ALVERTOL #### [facility] [address] [address] [address] Wesley Cohen [facility] HEADERGI [facility] Comment on above:Performed By: #### ALVERTOL #### [facility] [address] [address] [address] Wesley Jo ECOLIGI PANEL DIARRHEAGENIC E.COLI / SHIGELLACleveland Clinic [facility]ron General Lodi HospitalComment on above:Performed By: #### ALVERTOL #### [facility] [address] [place] [address] Dr. Wesley Jo INFOSEE [facility] HospitalComment on above: Result Comment: EAEC- Enteroaggregative E. Coli EPEC- Enteropathogenic E. Coli ETEC- Enterotoxigenic E. Coli lt/st STEC- Shigella-like toxin-producing E. Coli stx1/stx2 EIEC- Shigella/Enteroinvasive E. ColiPerformed By: #### ALVERTOL #### [facility] [address] [place] [address] Dr. Wesley Jo PARASITESGI [facility] PARASITESCleveland Clinic [facility] Comment on above:Performed By: #### ROMARIOANEL #### [facility] [address] [address] [address] Wesley Jo VIRUSGI PANEL VIRUSESCleveland Clinic [facility] HospitalComment on above:Performed By: #### ALVERTOL #### [facility] [address] [place] [address] Dr. Wesley Haysvirus GI/GIINot detectedNormalNOT DETECTEDFostoria City HospitalComment on above:Performed By: #### GIPANEL #### [facility] [address] [address] [address] Wesley Bruce ShigelloidesNot detectedNormalNOT DETECTEDThe [facility] HospitalComment on above:Performed By: #### GIPANEL #### [facility] [address] [address] [address] Wesley VillegasRotavirus ANot detectedNormalNOT DETECTEDThe [facility] Comment on above:Performed By: #### GIPANEL #### [facility] [address] [address] [address] Wesley VillegasSalmonellaNot detectedNormalNOT DETECTEDThe [facility] Comment on above:Performed By: #### GIPANEL #### [facility] [address] [address] [address] Wesley VillegasSapovirusNot detectedNormalNOT DETECTEDThe [facility] Comment on above:Performed By: #### GIPANEL #### [facility] [address] [address] [address] Wesley VillegasSTECNot detectedNormalNOT DETECTEDThe [facility] HospitalComment on above:Performed By: #### GIPANEL #### [facility] [address] [address] [address] Wesley LovebrioNot detectedNormalNOT DETECTEDThe [facility] HospitalComment on above:Performed By: #### GIPANEL #### [facility] [address] [address] [address] Wesley Rosenio CholeraNot detectedNormalNOT DETECTEDFostoria City Hospital Comment on above:Performed By: #### GIPANEL #### [facility] [address] [address] [address] Wesley Arnold. EnterocoliticaNot detectedNormalNOT DETECTEDThe [facility] HospitalComment on above:Performed By: #### GIPANEL #### [facility] [address] [address] [address] Wesley VillegasWISE [facility] GLUCOSEon [id number] [Mass/Vol]220 mg/dL Critically emrd25-664Xns [facility] HospitalComment on above:Performed By: #### BMP #### [facility] [address] [address] [address] Wesley Kyle 14(COMP METB)on [id number] [Mass/Vol]2.8 g/dL Critically low3.4-5.0The [facility] HospitalComment on above:Performed By: #### CBC #### [facility] [address] [place] [address] Dr. Wesley VillegasAlbumin/Globulin [Mass ratio]0.9 {ratio}NormalThe [facility] HospitalComment on above:Performed By: #### CBC #### [facility] [address] [place] [address] Dr. Wesley BenitezP [Catalytic activity/Vol]65 U/REjwwuf37-597Yqe [facility] HospitalComment on above:Performed By: #### CBC #### [facility] [address] [place] [address] Dr. Wesley Shepherd [Catalytic activity/Vol]161 U/LCritically oxvi00-43Ejk [facility] HospitalComment on above:Performed By: #### CBC #### [facility] [address] [place] [address] Dr. Wesley Calvo gap [Moles/Vol]12.1 mmol/LNormalThe [facility] Comment on above:Performed By: #### CBC #### [facility] [address] [place] [address] Dr. Wesley Enamorado [Catalytic activity/Vol]61 U/LCritically pccz98-72Dns [facility] HospitalComment on above:Performed By: #### CBC #### [facility] [address] [place] [address] Dr. Wesley VillegasBilirubin [Mass/Vol]0.5 mg/dLNormal0.2-1.0The [facility] Comment on above:Performed By: #### CBC #### [facility] [address] [place] [address] Dr. Wesley VillegasCalcium [Mass/Vol]8.0 mg/dLCritically low8.5-10.1The [facility] HospitalComment on above:Performed By: #### CBC #### [facility] [address] [place] [address] Dr. Wesley VillegasChloride [Moles/Vol]109 mmol/LCritically blns19-044Bkn [facility] HospitalComment on above:Performed By: #### CBC #### [facility] [address] [address] [address] Wesley VillegasCO2 [Moles/Vol]21.7 mmol/LAatzcf63.0-32.0The [facility] Comment on above:Performed By: #### CBC #### [facility] [address] [place] [address] Dr. Wesley VillegasCreatinine [Mass/Vol]0.58 mg/dLNormal0.55-1.02The [facility] HospitalComment on above:Performed By: #### CBC #### [facility] [address] [place] [address] Dr. Wesley GoldbergGFR-AF GHANAIAN>60Normal>=60The [facility] HospitalComment on above:Performed By: #### CBC #### [facility] [address] [place] [address] Dr. Wesley GoldbergGFR-NON AF GHANAIAN>60Normal>=60The [facility] HospitalComment on above:Performed By: #### CBC #### [facility] [address] [address] [address] Wesley VillegasGlobulin (S) [Mass/Vol]3.0 g/dLNormalThe [facility] HospitalComment on above:Performed By: #### CBC #### [facility] [address] [address] [address] Wesley VillegasGlucose [Mass/Vol]167 mg/dLCritically zvop52-709Jsy [facility] HospitalComment on above:Performed By: #### CBC #### [facility] [address] [place] [address] Dr. Wesley VillegasPotassium [Moles/Vol]3.8 mmol/LNormal3.5-5.1The [facility] Comment on above:Performed By: #### CBC #### [facility] [address] [address] [address] Wesley VillegasProtein [Mass/Vol]5.8 g/dLCritically low6.4-8.2The [facility] HospitalComment on above:Performed By: #### CBC #### [facility] [address] [address] [address] Wesley VillegasSodium [Moles/Vol]139 mmol/PSfdepm844-933Zog [facility] Comment on above:Performed By: #### CBC #### [facility] [address] [place] [address] Dr. Wesley Johnson nitrogen [Mass/Vol]20.0 mg/dLCritically high7.0-18.0The [facility] HospitalComment on above:Performed By: #### CBC #### [facility] [address] [place] [address] Dr. Wesley Johnson nitrogen/Creatinine [Mass ratio]34.5 mg/mgNormalThe [facility] HospitalComment on above:Performed By: #### CBC #### [facility] [address] [place] [address] Dr. Wesley Borden [id number] peptide B (Bld) [Mass/Vol]225.0 pg/mL Normal<=900.0The [facility] HospitalComment on above:Performed By: #### BNP, CMP #### [facility] [address] [place] [address] Dr. Wesley Langston W MANUAL DIFFon [id number] LYMPH #NormalThe [facility] HospitalComment on above:Performed By: #### BNP, CMP #### [facility] [address] [place] [address] Dr. Wesley WhitmoreYPICAL LYMPH %NormalThe [facility] HospitalComment on above: Performed By: #### BNP, CMP #### [facility] [address] [place] [address] Dr. Wesley Edwards #0.0 103/ulNormal0.0-0.3The [facility] HospitalComment on above:Performed By: #### BNP, CMP #### [facility] [address] [address] [address] Wesley Edwards %0 %Normal0-5The [facility] HospitalComment on above:Performed By: #### BNP, CMP #### [facility] [address] [place] [address] Dr. Wesley Lion #0.00 103/ulNormal0.00-0.10The [facility] HospitalComment on above:Performed By: #### BNP, CMP #### [facility] [address] [place] [address] Dr. Wesley Lion %0.0 %Critically low0.2-2.0The [facility] HospitalComment on above:Performed By: #### BNP, CMP #### [facility] [address] [place] [address] Dr. Wesley Villareal #NormalThe [facility] HospitalComment on above:Performed By: #### BNP, CMP #### [facility] [address] [place] [address] Dr. Wesley Villareal %NormalThe [facility] HospitalComment on above:Performed By: #### BNP, CMP #### [facility] [address] [place] [address] Dr. Wesley VillegasCORRECTED WBCNormal4.0-11.0The [facility] HospitalComment on above: Performed By: #### BNP, CMP #### [facility] [address] [place] [address] Dr. Wesley Reyes #0.00 103/ulNormal0.00-0.70The [facility] HospitalComment on above:Performed By: #### BNP, CMP #### [facility] [address] [place] [address] Dr. Wesley Reyes%0.0 %Critically low0.9-7.0The [facility] HospitalComment on above:Performed By: #### BNP, CMP #### [facility] [address] [place] [address] Dr. Wesley BlackburnT36.0 %Gfgkzt77.0-48.0The [facility] HospitalComment on above: Performed By: #### BNP, CMP #### [facility] [address] [address] [address] Wesley VillegasHGB12.6 g/sxCtvyal52.0-16.0The [facility] HospitalComment on above: Performed By: #### BNP, CMP #### [facility] [address] [address] [address] Wesley Gale #0.19 103/ulCritically low1.20-3.80The [facility] Comment on above:Performed By: #### BNP, CMP #### [facility] [address] [place] [address] Dr. Wesley Gale%8.0 %Critically low20.5-60.0The [facility] HospitalComment on above:Performed By: #### BNP, CMP #### [facility] [address] [place] [address] Dr. Wesley ShieldsH32.4 grFymtvy67.7-34.0The [facility] HospitalComment on above: Performed By: #### BNP, CMP #### [facility] [address] [place] [address] Dr. Wesley ShieldsHC35.0 g/utVppowh33.9-35.2The [facility] HospitalComment on above:Performed By: #### BNP, CMP #### [facility] [address] [place] [address] Dr. Wesley ShieldsV92.5 wFPsqihi25.0-99.0The [facility] HospitalComment on above: Performed By: #### BNP, CMP #### [facility] [address] [place] [address] Dr. Wesley AlonzoOCYTE #NormalThe [facility] HospitalComment on above: Performed By: #### BNP, CMP #### [facility] [address] [address] [address] Wesley AlonzoOCYTE %NormalThe [facility] HospitalComment on above: Performed By: #### BNP, CMP #### [facility] [address] [address] [address] Wesley Gaspar#0.14 103/ulCritically low0.30-0.80The [facility] on above:Performed By: #### BNP, CMP #### [facility] [address] [address] [address] Wesley Gaspar%6.0 %Normal1.7-12.0The [facility] HospitalComment on above: Performed By: #### BNP, CMP #### [facility] [address] [address] [address] Wesley MurphyV10.4 fLNormal9.5-13.5The [facility] HospitalComment on above: Performed By: #### BNP, CMP #### [facility] [address] [place] [address] Dr. Wesley LiOCYTE #NormalThe [facility] HospitalComment on above:Performed By: #### BNP, CMP #### [facility] [address] [address] [address] Wesley LiOCYTE %NormalThe [facility] HospitalComment on above:Performed By: #### BNP, CMP #### [facility] [address] [place] [address] Dr. Wesley VillegasNRBCNormalThe [facility] HospitalComment on above:Performed By: #### BNP, CMP #### [facility] [address] [address] [address] Wesley SullivanT63 103/ulCritically fag907-420Zvu [facility] HospitalComment on above:Performed By: #### BNP, CMP #### [facility] [address] [place] [address] Dr. Wesley DwyerC3.89 106/ulCritically low4.20-5.40The [facility] HospitalComment on above:Performed By: #### BNP, CMP #### [facility] [address] [address] [address] Wesley PerezW13.8 %Ewfksv92.0-15.0F[facility] City HospitalComment on above: Performed By: #### BNP, CMP #### [facility] [address] [place] [address] Dr. Wesley Torrez #2.06 103/ulNormal1.40-6.50The [facility] HospitalComment on above:Performed By: #### BNP, CMP #### [facility] [address] [place] [address] Dr. Wesley Torrez %86.0 %Critically high43.0-75.0The [facility] HospitalComment on above:Performed By: #### BNP, CMP #### [facility] [address] [place] [address] Dr. Wesley VillegasWBC2.4 103/ulCritically low4.0-11.0The [facility] HospitalComment on above:Performed By: #### BNP, CMP #### [facility] [address] [place] [address] Dr. Wesley VillegasPOINT OF [facility] GLUCOSEon [id number] [Mass/Vol]209 mg/dL Critically reuj00-931Jsf [facility] HospitalComment on above:Performed By: #### HBCORE #### [facility] [address] [place] [address] Dr. Wesley VillegasGlucose [Mass/Vol]172 mg/dLCritically wser65-367Nol [facility] HospitalComment on above:Performed By: #### HBCORE #### [facility] [address] [place] [address] Dr. Wesley VillegasGlucose [Mass/Vol]149 mg/dLCritically lwrs23-174Pxv [facility] HospitalComment on above:Performed By: #### BNP, CMP #### [facility] [address] [place] [address] Dr. Wesley Kyle 14(COMP METB)on 13-[birth year]-1955Ovcmfwp [Mass/Vol]2.7 g/dL Critically low3.4-5.0The [facility] HospitalComment on above:Performed By: #### BNP, CMP #### [facility] [address] [address] [address] Wesley VillegasAlbumin/Globulin [Mass ratio]0.8 {ratio}NormalThe [facility] HospitalComment on above:Performed By: #### BNP, CMP #### [facility] [address] [address] [address] Wesley BenitezP [Catalytic activity/Vol]68 U/ZNigwuu16-230Oqk [facility] HospitalComment on above:Performed By: #### BNP, CMP #### [facility] [address] [address] [address] Wesley BenitezT [Catalytic activity/Vol]229 U/LCritically tmnh19-23Sti [facility] HospitalComment on above:Performed By: #### BNP, CMP #### [facility] [address] [place] [address] Dr. Wesley Hoganon gap [Moles/Vol]15.7 mmol/LNormalThe [facility] Comment on above:Performed By: #### BNP, CMP #### [facility] [address] [place] [address] Dr. Wesley VillegasAST [Catalytic activity/Vol]116 U/LCritically ozps72-72Qqe [facility] HospitalComment on above:Performed By: #### BNP, CMP #### [facility] [address] [place] [address] Dr. Wesley VillegasBilirubin [Mass/Vol]0.5 mg/dLNormal0.2-1.0[facility] Comment on above:Performed By: #### BNP, CMP #### [facility] [address] [place] [address] Dr. Wesley VillegasCalcium [Mass/Vol]8.2 mg/dLCritically low8.5-10.1The [facility] HospitalComment on above:Performed By: #### BNP, CMP #### [facility] [address] [place] [address] Dr. Wesley VillegasChloride [Moles/Vol]106 mmol/CGztptg46-551Blj [facility] Comment on above:Performed By: #### BNP, CMP #### [facility] [address] [address] [address] Wesley VillegasCO2 [Moles/Vol]21.3 mmol/KZsyafa52.0-32.0[facility] Comment on above:Performed By: #### BNP, CMP #### [facility] [address] [address] [address] Wesley VillegasCreatinine [Mass/Vol]0.61 mg/dLNormal0.55-1.02The [facility] HospitalComment on above:Performed By: #### BNP, CMP #### [facility] [address] [address] [address] Olson ChangEGFR-AF GHANAIAN>60Normal>=60The [facility] HospitalComment on above:Performed By: #### BNP, CMP #### [facility] [address] [place] [address] Dr. Wesley GoldbergGFR-NON AF GHANAIAN>60Normal>=60The [facility] HospitalComment on above:Performed By: #### BNP, CMP #### [facility] [address] [place] [address] Dr. Wesley VillegasGlobulin (S) [Mass/Vol]3.2 g/dLNormalThe [facility] HospitalComment on above:Performed By: #### BNP, CMP #### [facility] [address] [place] [address] Dr. Wesley VillegasGlucose [Mass/Vol]141 mg/dLCritically zqie50-881Gho [facility] HospitalComment on above:Performed By: #### BNP, CMP #### [facility] [address] [place] [address] Dr. Wesley VillegasPotassium [Moles/Vol]3.0 mmol/LCritically low3.5-5.1The [facility] HospitalComment on above:Performed By: #### BNP, CMP #### [facility] [address] [place] [address] Dr. Wesley VillegasProtein [Mass/Vol]5.9 g/dLCritically low6.4-8.2The [facility] HospitalComment on above:Performed By: #### BNP, CMP #### [facility] [address] [place] [address] Dr. Wesley Lopezum [Moles/Vol]139 mmol/TTexfqx371-013Pyz [facility] Comment on above:Performed By: #### BNP, CMP #### [facility] [address] [place] [address] Dr. Wesley Johnson nitrogen [Mass/Vol]17.0 mg/dLNormal7.0-18.0The [facility] HospitalComment on above:Performed By: #### BNP, CMP #### [facility] [address] [place] [address] Dr. Wesley Johnson nitrogen/Creatinine [Mass ratio]27.9 mg/mgNormalThe [facility] HospitalComment on above:Performed By: #### BNP, CMP #### [facility] [address] [place] [address] Dr. Wesley Borden [id number] peptide B (Bld) [Mass/Vol]100.0 pg/mL Normal<=900.0The [facility] HospitalComment on above:Performed By: #### BNP, CMP #### [facility] [address] [place] [address] Dr. Wesley Langston W MANUAL DIFFon [id number] LYMPH #0.08 103/ulNormal The [facility] HospitalComment on above:Performed By: #### TATA #### [facility] [address] [place] [address] Dr. Wesley WhitmoreYPICAL LYMPH %6 %NormalThe [facility] HospitalComment on above: Performed By: #### CBCJOSE #### [facility] [address] [place] [address] Dr. Wesley Edwards #0.0 103/ulNormal0.0-0.3The [facility] HospitalComment on above:Performed By: #### CBCJOSE #### [facility] [address] [place] [address] Dr. Wesley Edwards %0 %Normal0-5The [facility] HospitalComment on above:Performed By: #### TATA #### [facility] [address] [address] [address] Wesley Lion #0.00 103/ulNormal0.00-0.10The [facility] HospitalComment on above:Performed By: #### TATA #### [facility] [address] [place] [address] Dr. Wesley Lion %0.0 %Critically low0.2-2.0The [facility] HospitalComment on above:Performed By: #### CBCJOSE #### [facility] [address] [place] [address] Dr. Wesley Villareal #NormalThe [facility] HospitalComment on above:Performed By: #### TATA #### [facility] [address] [place] [address] Dr. Wesley Villareal %NormalThe [facility] HospitalComment on above:Performed By: #### TATA #### [facility] [address] [place] [address] Dr. Wesley VillegasCORRECTED WBCNormal4.0-11.0The [facility] HospitalComment on above: Performed By: #### TATA #### [facility] [address] [place] [address] Dr. Wesley Reyes #0.06 103/ulNormal0.00-0.70The [facility] HospitalComment on above:Performed By: #### ATTA #### [facility] [address] [place] [address] Dr. Wesley Reyes%4.0 %Normal0.9-7.0The [facility] HospitalComment on above: Performed By: #### TATA #### [facility] [address] [place] [address] Dr. Wesley VillegasHCT40.3 %Ctaqel84.0-48.0The [facility] HospitalComment on above: Performed By: #### CBCJOSE #### [facility] [address] [place] [address] Dr. Wesley VillegasHGB13.7 g/ijKbfwuq46.0-16.0The [facility] HospitalComment on above: Performed By: #### TATA #### [facility] [address] [address] [address] Wesley Gale #0.62 103/ulCritically low1.20-3.80[facility] Comment on above:Performed By: #### TATA #### [facility] [address] [address] [address] Wesley Gale%44.0 %Jtraql60.5-60.0The [facility] HospitalComment on above:Performed By: #### TATA #### [facility] [address] [address] [address] Wesley ShieldsH31.7 ygBgfezi39.7-34.0The [facility] HospitalComment on above: Performed By: #### TATA #### [facility] [address] [address] [address] Wesley ShieldsHC34.0 g/ljDllwpw19.9-35.2The [facility] HospitalComment on above:Performed By: #### TATA #### [facility] [address] [address] [address] Wesley ShieldsV93.3 dRUgbowc95.0-99.0The [facility] HospitalComment on above: Performed By: #### TTAA #### [facility] [address] [address] [address] Wesley AlonzoOCYTE #NormalThe [facility] HospitalComment on above: Performed By: #### TATA #### [facility] [address] [address] [address] Wesley AlonzoOCYTE %NormalThe [facility] HospitalComment on above: Performed By: #### TATA #### [facility] [address] [address] [address] Wesley Gaspar#0.06 103/ulCritically low0.30-0.80[facility] Comment on above:Performed By: #### CBCJOSE #### [facility] [address] [address] [address] Wesley Gaspar%4.0 %Normal1.7-12.0The [facility] HospitalComment on above: Performed By: #### TATA #### [facility] [address] [place] [address] Dr. Wesley VillegasMPV10.0 fLNormal9.5-13.5The [facility] HospitalComment on above: Performed By: #### CBCJOSE #### [facility] [address] [address] [address] Wesley LiOCYTE #0.0 103/ulNormMercy Health Clermont HospitalComment on above: Performed By: #### CBCJOSE #### [facility] [address] [place] [address] Dr. Wesley Reyna %2 %NormalThe [facility] HospitalComment on above: Performed By: #### TATA #### [facility] [address] [place] [address] Dr. Wesley VillegasNRBCNoCherrington HospitalComment on above:Performed By: #### TATA #### [facility] [address] [place] [address] Dr. eWsley SullivanT87 103/ulCritically fpi739-469Nlm [facility] HospitalComment on above:Performed By: #### TATA #### [facility] [address] [place] [address] Dr. Wesley VillegasRBC4.32 106/ulNormal4.20-5.40The [facility] HospitalComment on above:Performed By: #### CBCJOSE #### [facility] [address] [place] [address] Dr. Wesley VillegasRDW14.0 %Oxprxf94.0-15.0The [facility] HospitalComment on above: Performed By: #### CBCJOSE #### [facility] [address] [place] [address] Dr. Wesley Torrez #0.56 103/ulCritically low1.40-6.50The [facility] Comment on above:Performed By: #### CBCJOSE #### [facility] [address] [address] [address] Wesley Torrez %40.0 %Critically low43.0-75.0The [facility]ment on above:Performed By: #### CBCMAN #### [facility] [address] [address] [address] Wesley VillegasWBC1.4 103/ulCritically low4.0-11.0The [facility] HospitalComment on above:Performed By: #### CBCMAN #### [facility] [address] [address] [address] Wesley VillegasCULTURE URINEon [id number] URINECulture Observations: NO GROWTH.NormalThe [facility] HospitalCommunson healthcare [facility] on above:Performed By: #### PERSMR #### [facility] [address] [place] [address] Dr. Wesley VillegasPOINT OF CARE GLUCOSEon 42-75-2643Gvjvdag [Mass/Vol]177 mg/dL Critically ibml19-947Gqq [facility] HospitalComment on above:Performed By: #### BMP #### [facility] [address] [place] [address] Dr. Wesley VillegasGlucose [Mass/Vol]127 mg/dLCritically cufi91-677Vhu [facility] HospitalCommunson [facility] on above:Performed By: #### BNP, CMP #### [facility] [address] [place] [address] Dr. Wseley VillegasGlucose [Mass/Vol]148 mg/dLCritically ohry17-332Els [facility] HospitalComment on above:Performed By: #### BMP #### [facility] [address] [place] [address] Dr. Wesley VillegasGlucose [Mass/Vol]149 mg/dLCritically leax15-492Lfz [facility] HospitalCommunson healthcare [facility] on above:Performed By: #### CBC #### [facility] [address] [place] [address] Dr. Wesley VillegasPROF 14(COMP METB)on 10-84-5217Hzykpaq [Mass/Vol]3.1 g/dL Critically low3.4-5.0The [facility] HospitalComment on above:Performed By: #### BNP, CMP #### [facility] [address] [address] [address] Wesley VillegasAlbumin/Globulin [Mass ratio]0.9 {ratio}NormalThe [facility] HospitalComment on above:Performed By: #### BNP, CMP #### [facility] [address] [address] [address] Wesley Yancey [Catalytic activity/Vol]79 U/FRoqxib03-889Jux [facility] HospitalComment on above:Performed By: #### BNP, CMP #### [facility] [address] [address] [address] Wesley Shepherd [Catalytic activity/Vol]311 U/LCritically zwmd16-40Wog [facility] HospitalComment on above:Performed By: #### BNP, CMP #### [facility] [address] [address] [address] Wesley Calvo gap [Moles/Vol]11.7 mmol/LNormalThe [facility] Comment on above:Performed By: #### BNP, CMP #### [facility] [address] [address] [address] Wesley Enamorado [Catalytic activity/Vol]210 U/LCritically ekfw67-44Zxa [facility] HospitalComment on above:Performed By: #### BNP, CMP #### [facility] [address] [address] [address] Wesley VillegasBilirubin [Mass/Vol]0.9 mg/dLNormal0.2-1.0[facility] Comment on above:Performed By: #### BNP, CMP #### [facility] [address] [address] [address] Wesley VillegasCalcium [Mass/Vol]8.2 mg/dLCritically low8.5-10.1The [facility] HospitalComment on above:Performed By: #### BNP, CMP #### [facility] [address] [address] [address] Wesley VillegasChloride [Moles/Vol]98 mmol/CGevdci02-894Mnd [facility] Comment on above:Performed By: #### BNP, CMP #### [facility] [address] [address] [address] Wesley VillegasCO2 [Moles/Vol]25.7 mmol/CBnieig80.0-32.0[facility] Comment on above:Performed By: #### BNP, CMP #### [facility] [address] [address] [address] Wesley VillegasCreatinine [Mass/Vol]0.61 mg/dLNormal0.55-1.02The [facility] HospitalComment on above:Performed By: #### BNP, CMP #### [facility] [address] [place] [address] Dr. Wesley GoldbergGFR-AF GHANAIAN>60Normal>=60The [facility] HospitalComment on above:Performed By: #### BNP, CMP #### [facility] [address] [place] [address] Dr. Wesley GoldbergGFR-NON AF GHANAIAN>60Normal>=60The [facility] HospitalComment on above:Performed By: #### BNP, CMP #### [facility] [address] [place] [address] Dr. Wesley VillegasGlobulin (S) [Mass/Vol]3.3 g/dLNormalThe [facility] HospitalComment on above:Performed By: #### BNP, CMP #### [facility] [address] [place] [address] Dr. Wesley VillegasGlucose [Mass/Vol]121 mg/dLCritically jlai85-514Uxk [facility] HospitalComment on above:Performed By: #### BNP, CMP #### [facility] [address] [place] [address] Dr. Wesley VillegasPotassium [Moles/Vol]3.4 mmol/LCritically low3.5-5.1The [facility] HospitalComment on above:Performed By: #### BNP, CMP #### [facility] [address] [place] [address] Dr. Wesley VillegasProtein [Mass/Vol]6.4 g/dLNormal6.4-8.2[facility] Comment on above:Performed By: #### BNP, CMP #### [facility] [address] [address] [address] Wesley Lopezum [Moles/Vol]132 mmol/LCritically nmo780-926Roq [facility] HospitalComment on above:Performed By: #### BNP, CMP #### [facility] [address] [place] [address] Dr. Wesley Johnson nitrogen [Mass/Vol]13.0 mg/dLNormal7.0-18.0The [facility] HospitalComment on above:Performed By: #### BNP, CMP #### [facility] [address] [place] [address] Dr. Wesley Johnson nitrogen/Creatinine [Mass ratio]21.3 mg/mgNormalThe [facility] HospitalComment on above:Performed By: #### BNP, CMP #### [facility] [address] [place] [address] Dr. Wesley York RANDOM W/MICROSCOPICon 43-15-1390YFTZXABQICEZ SEENNormalNONE SEENFostoria City HospitalComment on above:Performed By: #### BNP, CMP #### [facility] [address] [place] [address] Dr. Wesley Carrion Ql (U)NegativeNormalNEGATIVEFostoria City Hospital Comment on above:Performed By: #### BNP, CMP #### [facility] [address] [place] [address] Dr. Wesley Guidry SEENNormalNONE SEENFostoria City HospitalComment on above:Performed By: #### BNP, CMP #### [facility] [address] [place] [address] Dr. Wesley Cruz (U)CLEARNormalCLEARFostoria City HospitalComment on above: Performed By: #### BNP, CMP #### [facility] [address] [place] [address] Dr. Wesley Massey (U)LT. YELLOWNormalYELLOWFostoria City HospitalComment on above:Performed By: #### BNP, CMP #### [facility] [address] [address] [address] Wesley VillegasCrystals LM Nom (Urine sed)NONE SEENNormalNONE SEENFostoria City HospitalComment on above:Performed By: #### BNP, CMP #### [facility] [address] [address] [address] Olson ChangEpithelial cells LM Ql (Urine sed)RARENormalNONE SEEN /RAREFostoria City HospitalComment on above:Performed By: #### BNP, CMP #### [facility] [address] [address] [address] Wesley VillegasGlucose Ql (U)>1000AbnormalNEGATIVEWVUMedicine Harrison Community Hospital on above:Performed By: #### BNP, CMP #### [facility] [address] [address] [address] Wesley VillegasHemoglobin Ql (U)SMALLAbnormalNEGATIVEMarietta Memorial Hospital on above:Performed By: #### BNP, CMP #### [facility] [address] [address] [address] Wesley VillegasKetones Ql (U)>=80AbnormalNEGATIVEWVUMedicine Harrison Community Hospital on above:Performed By: #### BNP, CMP #### [facility] [address] [address] [address] Wesley VillegasLEUKOCYTESNegativeNormalNEGATIVEFostoria City HospitalCommunson healthcare [facility] on above:Performed By: #### BNP, CMP #### [facility] [address] [address] [address] Wesley VillegasMUCOUSNONE SEENNormalNONE SEENFostoria City HospitalCommunson healthcare [facility] hospital on above:Performed By: #### BNP, CMP #### [facility] [address] [address] [address] Wesley VillegasNitrite Ql (U)NegativeNormalNEGATIVECleveland Clinic [facility] General Lodi Hospitalment on above:Performed By: #### BNP, CMP #### [facility] [address] [place] [address] Dr. Wesley Kate (U)5.0 [pH]Normal5-9The [facility] HospitalComment on above: Performed By: #### BNP, CMP #### [facility] [address] [place] [address] Dr. Wesley VillegasDqndbXKK7-7Feqytqft9-0Nwp [facility] HospitalComment on above:Performed By: #### BNP, CMP #### [facility] [address] [place] [address] Dr. Wesley VillegasSPEC GRAVITY1.447Anmobb4.005-<=1.025The [facility] HospitalComment on above:Performed By: #### BNP, CMP #### [facility] [address] [place] [address] Dr. Wesley York PROTEINNegativeNormalNEGATIVE/ TRACEThe [facility] Comment on above:Performed By: #### BNP, CMP #### [facility] [address] [place] [address] Dr. Wesley Bowden Qn (U)0.2 {Dariel'U}/dLNormal0.2 - 1.0The [facility] HospitalCommunson healthcare [facility] on above:Performed By: #### BNP, CMP #### [facility] [address] [place] [address] Dr. Wesley VillegasWBC0-2AbnormalNONE SEENThe [facility] HospitalComment on above: Performed By: #### BNP, CMP #### [facility] [address] [place] [address] Dr. Wesley Navarro 57-35-0738Gkajbxw (P) [Moles/Vol]13 umol/FZwydqk45-67 The [facility] HospitalComment on above:Performed By: #### HBCORE #### [facility] [address] [place] [address] Dr. Wesley Tolbert LUCINA ADMITon [id number] [Catalytic activity/Vol]24 U/L Critically nzf88-770Ktz [facility] HospitalComment on above:Performed By: #### CBC #### [facility] [address] [place] [address] Dr. Wesley Perez.MB [Mass/Vol]ng/mLNormal<=3.60The [facility]ment on above:Performed By: #### CBC #### [facility] [address] [place] [address] Dr. Wesley GarayTROP5.0 pg/mLNormal4.0-51.3The [facility] HospitalComment on above:Result Comment: CUT-OFF POINTS HAVE BEEN ESTABLISHED BASED ON THE FOURTH UNIVERSAL DEFINITIONS OF MYOCARDIAL INFARCTION. THE UPPER REFERENCE LIMIT (URL) OF TROPONIN, DEFINED THE 99TH PERCENTILE OF cTnI DISTRIBUTION IN A REFERENCE POPULATION, HAS BEEN CONFIRMED THE DECISION THRESHOLD FOR SC DIAGNOSIS.Performed By: #### CBC #### [facility] [address] [place] [address] Dr. Wesley MyersO20 ng/mLNormal9-82The [facility] on above: Performed By: #### CBC #### [facility] [address] [place] [address] Dr. Wesley Langston W MANUAL DIFFon [id number] LYMPH #NormalFostoria City HospitalComment on above:Performed By: #### BNP, CMP #### [facility] [address] [place] [address] Dr. Wesley VillegasATYPICAL LYMPH %NormalThe [facility] HospitalComment on above: Performed By: #### BNP, CMP #### [facility] [address] [place] [address] Dr. Wesley Edwards #Normal0.0-0.3The [facility] HospitalComment on above: Performed By: #### BNP, CMP #### [facility] [address] [place] [address] Dr. Wesley Edwards %Normal0-5The [facility] HospitalComment on above:Performed By: #### BNP, CMP #### [facility] [address] [place] [address] Dr. Wesley Lion #0.00 103/ulNormal0.00-0.10The [facility] HospitalComment on above:Performed By: #### BNP, CMP #### [facility] [address] [place] [address] Dr. Wesley Lion %0.0 %Critically low0.2-2.0The [facility] HospitalComment on above:Performed By: #### BNP, CMP #### [facility] [address] [place] [address] Dr. Wesley VillegasBLAST #NormalThe Ansonville HospitalComment on above:Performed By: #### BNP, CMP #### [facility] [address] [place] [address] Dr. Wesley VillegasBLAST %NormalThe [facility] HospitalComment on above:Performed By: #### BNP, CMP #### [facility] [address] [place] [address] Dr. Wesley VillegasCORRECTED WBCNormal4.0-11.0The [facility] HospitalComment on above: Performed By: #### BNP, CMP #### [facility] [address] [place] [address] Dr. Wesley Reyes #0.05 103/ulNormal0.00-0.70The [facility] HospitalComment on above:Performed By: #### BNP, CMP #### [facility] [address] [place] [address] Dr. Wesley Reyes%3.0 %Normal0.9-7.0The [facility] HospitalComment on above: Performed By: #### BNP, CMP #### [facility] [address] [place] [address] Dr. Wesley VillegasHCT43.7 %Waxpyn69.0-48.0The [facility] HospitalComment on above: Performed By: #### BNP, CMP #### [facility] [address] [place] [address] Dr. Wesley VillegasHGB15.0 g/mlScnapv86.0-16.0The [facility] HospitalComment on above: Performed By: #### BNP, CMP #### [facility] [address] [place] [address] Dr. Wesley Gale #0.59 103/ulCritically low1.20-3.80The [facility] Comment on above:Performed By: #### BNP, CMP #### [facility] [address] [place] [address] Dr. Wesley Gale%33.0 %Omcnct00.5-60.0The [facility] HospitalComment on above:Performed By: #### BNP, CMP #### [facility] [address] [place] [address] Dr. Wesley ShieldsH31.6 zkIsxlvq78.7-34.0The [facility] HospitalComment on above: Performed By: #### BNP, CMP #### [facility] [address] [place] [address] Dr. Wesley ShieldsHC34.3 g/pyBcstwx77.9-35.2The [facility] HospitalComment on above:Performed By: #### BNP, CMP #### [facility] [address] [place] [address] Dr. Wesley ShieldsV92.2 mZFufuce26.0-99.0The [facility] HospitalComment on above: Performed By: #### BNP, CMP #### [facility] [address] [place] [address] Dr. Wesley AlonzoOCYTE #NormalThe [facility] HospitalComment on above: Performed By: #### BNP, CMP #### [facility] [address] [place] [address] Dr. Wesley AlonzoOCYTE %NormalThe [facility] HospitalComment on above: Performed By: #### BNP, CMP #### [facility] [address] [place] [address] Dr. Wesley Gaspar#0.05 103/ulCritically low0.30-0.80The [facility] Comment on above:Performed By: #### BNP, CMP #### [facility] [address] [place] [address] Dr. Wesley Gaspar%3.0 %Normal1.7-12.0The [facility] HospitalComment on above: Performed By: #### BNP, CMP #### [facility] [address] [address] [address] Wesley MurphyV9.6 fLNormal9.5-13.5The [facility] HospitalComment on above: Performed By: #### BNP, CMP #### [facility] [address] [address] [address] Wesley LiOCYTE #NormalFostoria City HospitalComment on above:Performed By: #### BNP, CMP #### [facility] [address] [address] [address] Wesley LiOCYTE %NormalFostoria City HospitalComment on above:Performed By: #### BNP, CMP #### [facility] [address] [address] [address] Wesley VillegasNRBCNormalThPremier Health Miami Valley HospitalComment on above:Performed By: #### BNP, CMP #### [facility] [address] [place] [address] Dr. Wesley SullivanT127 103/ulCritically kdy258-633Teq [facility]ment on above:Performed By: #### BNP, CMP #### [facility] [address] [place] [address] Dr. Wesley DwyerC4.74 106/ulNormal4.20-5.40[facility] on above:Performed By: #### BNP, CMP #### [facility] [address] [address] [address] Wesley VillegasRDW13.7 %Yelvgv40.0-15.0The [facility]Healthment on above: Performed By: #### BNP, CMP #### [facility] [address] [address] [address] Wesley Torrez #1.10 103/ulCritically low1.40-6.50The [facility] on above:Performed By: #### BNP, CMP #### [facility] [address] [place] [address] Dr. Wesley Torrez %61.0 %Phdmwo50.0-75.0The Berta HospitalComment on above: Performed By: #### BNP, CMP #### [facility] [address] [place], [place] [address] Dr. Wesley VillegasWBC1.8 103/ulCritically low4.0-11.0The [facility] HospitalComment on above:Performed By: #### BNP, CMP #### [facility] [address] [place], [place] [address] Dr. Wesley VillegasCT HEAD WO CONon [id number] HEAD WO CONEXAMINATION: CT HEAD WO CON HISTORY: WEAKNESS , altered level of consciousness COMPARISON: CT head 12/24/2021 TECHNIQUE: Axial CT images were obtained without IV contrast. Dose reduction techniques were achieved by using automated exposure control and/or adjustment of mA and/or kV according to patient size and/or use of iterative reconstruction technique. FINDINGS: BRAIN: No edema, hemorrhage, mass, acute infarction, or inappropriate atrophy. CSF SPACES: No hydrocephalus, subarachnoid hemorrhage, or mass. Appropriate for age. SKULL: No fracture, mass, or other significant visible lesion. SINUSES: No significant mucosal thickening or fluid on the limited views. ORBITS: No appreciable abnormality on the limited views. OTHER: Negative IMPRESSION: 1. No appreciable acute abnormality. Stable appearance of brain. 2. Age consistent mild chronic changes. Electronically authenticated by: CASSIA CHARLTON Date: 2022-04-28 10:51NoCherrington HospitalCovid-19 PCR (CVDTBH)on [id number]-CoV-2 (COVID-19) RNA ELEN+probe Ql (Unsp spec)Not detectedNormalNOT DETECTEDThe [facility] Comment on above:Result Comment: When diagnostic testing is negative, the possibility of a false negative should be considered in the context of a patient's recent exposures and the presence of clinical signs and symptoms consistent with SARS-CoV-2. This test is not yet approved or cleared by the [place] FDA. When there are no FDA-approved or cleared tests available, and other criteria are met, FDA can make tests available under an emergency access mechanism called an Emergency Use Authorization (EUA). The EUA for this test is supported by the [place] of Health and Human Service's declaration that circumstances exist to justify the emergency use of in vitro diagnostics for the detection and/or diagnosis of the virus that causes COVID-19. This EUA will remain in effect for the duration of the COVID-19 declaration justifying emergency of IVDs, unless it is terminated or revoked by the FDA (after which the test may no longer be used).Performed By: #### GIPANEL #### [facility] [address] [place] [address] Dr. Wesley Slater AND B AGon [id number] Hamilton Hospitalment on above:Result Comment: Negative for Flu A protein angiten. Infection due to Flu A cannot be ruled out. FluA angiten in the sample may be below the detection limit of the test.Performed By: #### BNP, CMP #### [facility] [address] [place] [address] Dr. [address]insUB[address] [facility] on above: Result Comment: Negative for Flu B protein antigen. Infection due to Flu B cannot be ruled out. FluB antigen in the sample may be below the detection limit of the test.Performed By: #### BNP, CMP #### [facility] [address] [place] [address] Dr. Wesley Slater AGNegativeNormalNEGATIVE SEE COMMENTThe [facility] on above:Performed By: #### BNP, CMP #### [facility] [address] [place] [address] Dr. Wesley Loving AGNegativeNormalNEGATIVE SEE COMMENTThe [facility] on above:Performed By: #### BNP, CMP #### [facility] [address] [place] [address] Dr. Wesley VillegasINTERNAL CONTROLSWithin Normal LimitsNormalWithin Normal Limits The [facility] on above:Performed By: #### BNP, CMP #### [facility] [address] [place] [address] Dr. Wesley VillegasLACTATE/LACTIC ACIDon [id number] [Moles/Vol]1.3 mmol/L Normal0.4-1.9The [facility] HospitalComment on above:Performed By: #### HBCORE #### [facility] [address] [place] [address] Dr. Wesley VillegasPerformed By: #### BNP, CMP #### [facility] [address] [place] [address] Dr. Wesley VillegasLIPASEon [id number] [Catalytic activity/Vol]90.0 U/LNormal 73.0-393.0[facility] on above:Performed By: #### CBC #### [facility] [address] [place] [address] Dr. Wesley VilledaIPHERAL SMEARon [id number] Cyto stain Nom (Cvx/Vag) [ID]DR. NELLY KingBarnesville Hospital on above:Result Comment: leukopenia and mild throbocytopenia is they are persistent, further investigation is recommended icd code; D69.6Performed By: #### PERSMR #### [facility] [address] [place] [address] Dr. Wesley VillegasPOINT OF CARE GLUCOSEon [id number] [Mass/Vol]139 mg/dL Critically zrzo00-148Ibe [facility] on above:Performed By: #### BNP, CMP #### [facility] [address] [place] [address] Dr. Wesley VillegasGlucose [Mass/Vol]135 mg/dLCritically rhri81-759Ols [facility] on above:Performed By: #### HBCORE #### [facility] [address] [place] [address] Dr. Wesley VillegasGlucose [Mass/Vol]145 mg/dLCritically zalz42-020Fhm [facility] on above:Performed By: #### BNP, CMP #### [facility] [address] [place] [address] Dr. Wesley VillegasPROF 14(COMP METB)on [id number] [Mass/Vol]3.6 g/dLNormal 3.4-5.0The Berta HospitalComment on above:Performed By: #### CBC #### [facility] [address] [address] [address] Wesley VillegasAlbumin/Globulin [Mass ratio]1.0 {ratio}NormalThe [facility] HospitalCommunson healthcare [facility] on above:Performed By: #### CBC #### [facility] [address] [address] [address] Wesley BenitezP [Catalytic activity/Vol]92 U/TWfiegz02-173Tbf [facility]ment on above:Performed By: #### CBC #### [facility] [address] [address] [address] Wesley BenitezT [Catalytic activity/Vol]362 U/LCritically hzdo44-61Kqg [facility] on above:Performed By: #### CBC #### [facility] [address] [place] [address] Dr. Wesley Hoganon gap [Moles/Vol]10.3 mmol/LNormalThe [facility] Comment on above:Performed By: #### CBC #### [facility] [address] [address] [address] Wesley VillegasAST [Catalytic activity/Vol]251 U/LCritically vkah14-13Wro [facility] on above:Performed By: #### CBC #### [facility] [address] [place] [address] Dr. Wesley VillegasBilirubin [Mass/Vol]1.1 mg/dLCritically high0.2-1.0The [facility] on above:Performed By: #### CBC #### [facility] [address] [place] [address] Dr. Wesley VillegasCalcium [Mass/Vol]8.7 mg/dLNormal8.5-10.1The [facility] Comment on above:Performed By: #### CBC #### [facility] [address] [place] [address] Dr. Wesley VillegasChloride [Moles/Vol]97 mmol/LCritically ohc75-683Myd [facility] on above:Performed By: #### CBC #### [facility] [address] [address] [address] Wesley VillegasCO2 [Moles/Vol]27.6 mmol/IArsoaa30.0-32.0The [facility] Comment on above:Performed By: #### CBC #### [facility] [address] [address] [address] Wesley VillegasCreatinine [Mass/Vol]0.71 mg/dLNormal0.55-1.02The [facility] HospitalComment on above:Performed By: #### CBC #### [facility] [address] [address] [address] Olson ChangEGFR-AF GHANAIAN>60Normal>=60The [facility] HospitalComment on above:Performed By: #### CBC #### [facility] [address] [address] [address] Wesley GoldbergGFR-NON AF GHANAIAN>60Normal>=60The [facility] HospitalComment on above:Performed By: #### CBC #### [facility] [address] [address] [address] Wesley VillegasGlobulin (S) [Mass/Vol]3.5 g/dLNormalThe [facility] HospitalComment on above:Performed By: #### CBC #### [facility] [address] [address] [address] Wesley VillegasGlucose [Mass/Vol]130 mg/dLCritically hlea20-683Hxy [facility] HospitalComment on above:Performed By: #### CBC #### [facility] [address] [address] [address] Wesley VillegasPotassium [Moles/Vol]2.9 mmol/LCritically low3.5-5.1The [facility] HospitalComment on above:Performed By: #### CBC #### [facility] [address] [address] [address] Wesley VillegasProtein [Mass/Vol]7.1 g/dLNormal6.4-8.2The [facility] Comment on above:Performed By: #### CBC #### [facility] [address] [place], [place] [address] Dr. Wesley VillegasSodium [Moles/Vol]132 mmol/LCritically esn396-649Jiq [facility] HospitalComment on above:Performed By: #### CBC #### [facility] [address] [place], [place] [address] Dr[address] Wesley VillegasUrea nitrogen [Mass/Vol]20.0 mg/dLCritically high7.0-18.0The [facility] HospitalComment on above:Performed By: #### CBC #### [facility] [address] [place], [place] [address] Dr. Wesley VillegasUrea nitrogen/Creatinine [Mass ratio]28.2 mg/mgNoCherrington HospitalComment on above:Performed By: #### CBC #### [facility] [address] [place], [place] [address] Dr. Wesley VillegasXR CHEST 1 Von [id number] CHEST 1 VEXAMINATION: XR CHEST 1 V HISTORY: NAUSEA WITH VOMITING, UNSPECIFIED ; altered level of consciousness COMPARISON: No relevant comparison available. FINDINGS: LUNGS: Trace amount stranding within lateral left lung base; lungs otherwise clear. VASCULATURE: No increased pulmonary vasculature. PLEURA: No pneumothorax, effusion, or pleural thickening. CARDIAC: No cardiomegaly or cardiac silhouette abnormality. MEDIASTINUM: No visible mass or adenopathy. BONES: No fracture or visible bone lesion. OTHER: Negative. IMPRESSION: 1. Trace amount left basilar scarring versus discoid atelectasis versus infiltrate. No comparison studies. Electronically authenticated by: CASSIA CHARLTON Date: 2022-04-28 10:37[facility] HospitalXR DEXA BONE DENSITYon [id number] DEXA BONE DENSITY EXAMINATION: XR DEXA BONE DENSITY, 04/24/2022 11:07 AM EST HISTORY: Senile osteoporosis COMPARISON: None. TECHNIQUE: Dual-energy X-ray absorptiometry (DEXA) bone density study performed for the axial skeleton. FINDINGS: Bone mineral density AP spine L1-L4 measures 1.048 g/sq cm. T score -1.1. WHO classification: Osteopenia Lowest bone mineral density left femoral neck measures 0.636 g/sq cm. T score -2.9. WHO classification: Osteoporosis IMPRESSION: Osteoporosis. High fracture risk Electronically authenticated by: IRAIDA CARROLL Date: 2022-04-24 17:09[facility] HospitalPOINT OF CARE GLUCOSEon [id number] [Mass/Vol]127 mg/dL Critically gchj84-699UmxFostoria City HospitalComment on above:Performed By: #### HBCORE #### [facility] [address] [place] [address] Dr. Wesley VillegasGlucose [Mass/Vol]110 mg/dLCritically kwsr43-600KfkFostoria City HospitalComment on above:Performed By: #### BNP, CMP #### [facility] [address] [place] [address] Dr. Wesley VillegasCovid-19 PCR (CVDNORTH ADAMS [facility])on [id number]-CoV-2 (COVID-19) RNA ELEN+probe Ql (Unsp spec)Not detectedNormalNOT DETECTEDFostoria City Hospital Comment on above:Result Comment: This test is not yet approved or cleared by the [place] FDA. When there are no FDA-approved or cleared tests available, and other criteria are met, FDA can make tests available under an emergency access mechanism called an Emergency Use Authorization (EUA). The EUA for this test is supported by the [place] of Health and Human Service's (HHS's) declaration that circumstances exist to justify the emergency use of in vitro diagnostics for the detection and/or diagnosis of the virus that causes COVID- 19. This EUA will remain in effect (meaning this test can be used) for the duration of the COVID-19 declaration justifying emergency of IVDs, unless it is terminated or revoked by FDA (after which the test may no longer be used). When diagnostic testing is negative, the possibility of a false negative should be considered in the context of a patient's recent exposures and the presence of clinical signs and symptoms consistent with SARS-CoV-2.Performed By: #### BNP, CMP #### [facility] [address] [place] [address] Dr. Wesley VillegasCBC AUTO DIFFon [id number] #0.0 103/ulNormal0.0-0.1The [facility] HospitalComment on above:Performed By: #### CBC #### [facility] [address] [address] [address] Wesley VillegasBasophils/100 WBC (Bld)0.2 %Normal0.2-2.0The [facility] on above:Performed By: #### CBC #### [facility] [address] [place] [address] Dr. Wesley Howard #0.1 103/ulNormal0.0-0.7The [facility] HospitalComment on above: Performed By: #### CBC #### [facility] [address] [place] [address] Dr. Wesley Goldbergosinophils/100 WBC (Bld)0.5 %Critically low0.9-7.0The [facility] on above:Performed By: #### CBC #### [facility] [address] [place] [address] Dr. Wesley Goldbergrythrocyte distribution width (RBC) [Ratio]12.9 %Wccnoo73.0-15.0 The [facility] HospitalComment on above:Performed By: #### CBC #### [facility] [address] [place] [address] Dr. Wesley VillegasHematocrit (Bld) [Volume fraction]45.1 %Mnjhjd67.0-48.0The [facility] HospitalComment on above:Performed By: #### CBC #### [facility] [address] [place] [address] Dr. Wesley VillegasHemoglobin (Bld) [Mass/Vol]15.2 g/mXKlreji25.0-16.0The [facility] HospitalComment on above:Performed By: #### CBC #### [facility] [address] [place] [address] Dr. Wesley Emery #0.01 10e3/ulNormal0.00-0.03The [facility] HospitalComment on above:Performed By: #### CBC #### [facility] [address] [place] [address] Dr. Wesley Emery %0.1 %Normal0.0-0.5The [facility] HospitalComment on above: Performed By: #### CBC #### [facility] [address] [place] [address] Dr. Wesley Vee #1.7 103/ulNormal1.2-3.8The [facility] HospitalComment on above:Performed By: #### CBC #### [facility] [address] [place] [address] Dr. Wesley Markhamhocytes/100 WBC (Bld)17.8 %Critically low20.5-60.0The [facility] HospitalComment on above:Performed By: #### CBC #### [facility] [address] [place] [address] Dr. Wesley Ocasio DIFF REQNONormalThe [facility] HospitalComment on above: Performed By: #### CBC #### [facility] [address] [place] [address] Dr. Wesley Araujo (RBC) [Entitic mass]31.8 fgOkvmob93.7-34.0The [facility] HospitalComment on above:Performed By: #### CBC #### [facility] [address] [place] [address] Dr. Wesley Shields (RBC) [Mass/Vol]33.7 g/bDPsqcil73.9-35.2The [facility] HospitalComment on above:Performed By: #### CBC #### [facility] [address] [place] [address] Dr. Wesley Moses (RBC) [Entitic vol]94.4 yZBwnqvr08.0-99.0The [facility] HospitalComment on above:Performed By: #### CBC #### [facility] [address] [place] [address] Dr. Wesley Corbett #0.4 103/ulNormal0.3-0.8The [facility] HospitalComment on above:Performed By: #### CBC #### [facility] [address] [place] [address] Dr. Yilan ChangMonocytes/100 WBC (Bld)3.8 %Normal1.7-12.0The [facility] Comment on above:Performed By: #### CBC #### [facility] [address] [place] [address] Dr. Wesley Pena #7.5 103/ulCritically high1.4-6.5The [facility] Comment on above:Performed By: #### CBC #### [facility] [address] [place] [address] Dr. Wesley Smithutrophils/100 WBC (Bld)77.6 %Critically high43.0-75.0The [facility] HospitalComment on above:Performed By: #### CBC #### [facility] [address] [place] [address] Dr. Wesley Thurstonlet mean volume (Bld) [Entitic vol]9.8 fLNormal9.5-13.5The [facility] HospitalComment on above:Performed By: #### CBC #### [facility] [address] [place] [address] Dr. Wesley VillegasPLT198 103/swWroulm712-464Xcz [facility] HospitalComment on above: Performed By: #### CBC #### [facility] [address] [place] [address] Dr. Wesley DwyerC4.78 106/ulNormal4.20-5.40The [facility] HospitalComment on above:Performed By: #### CBC #### [facility] [address] [place] [address] Dr. Wesley VillegasWBC9.7 103/ulNormal4.0-11.0The [facility] HospitalComment on above: Performed By: #### CBC #### [facility] [address] [place] [address] Dr. Wesley Mcmillan [id number] [Mass/Vol]mg/LNormal<=1.0The [facility] HospitalComment on above:Performed By: #### BMP #### [facility] [address] [place] [address] Dr. Wesley Mtz FOOT LT WO CONon [id number] FOOT LT WO CONEXAMINATION: CT FOOT LT WO CON HISTORY: Fracture of calcaneus COMPARISON: 02/22/2022 TECHNIQUE: Multi-planar CT images were created without IV contrast. Dose reduction techniques were achieved by using automated exposure control and/or adjustment of mA and/or kV according to patient size and/or use of iterative reconstruction technique. FINDINGS: BONES: Stable complex fracture of the calcaneus with plantar flattening of the inferior margin. Stable talocalcaneal spacer with fixation screws. There is no significant bone formation noted complex calcaneal fracture with likely heterotopic bone placement around the margins of the spacer. Diffuse moderate to severe degenerative changes throughout the foot with joint space narrowing marginal osteophyte formation and subchondral lytic changes. Permeative pattern of the bones suggests osteopenia. SOFT TISSUES: Diffuse soft tissue swelling EFFUSION: None visible. OTHER: Negative. IMPRESSION: Stable postsurgical changes and complex calcaneal fracture with no significant bone formation observed Electronically authenticated by: IRAIDA CARROLL Date: 2022-03-17 18:16[facility] HospitalPROF 14(COMP METB)on [id number] [Mass/Vol]3.9 g/dLNormal 3.4-5.0[facility] City HospitalComment on above:Performed By: #### PERSMR #### [facility] [address] [place] [address] Dr. Wesley VillegasAlbumin/Globulin [Mass ratio]1.1 {ratio}NormalThe [facility] on above:Performed By: #### PERSMR #### [facility] [address] [place] [address] Dr. Wesley Yancey [Catalytic activity/Vol]107 U/QQqiihu48-203Teg [facility] on above:Performed By: #### PERSMR #### [facility] [address] [place] [address] Dr. Wesley Shepherd [Catalytic activity/Vol]53 U/XHegksb46-32Jsl [facility] on above:Performed By: #### PERSMR #### [facility] [address] [place] [address] Dr. Yilan ChangAnion gap [Moles/Vol]10.1 mmol/LNormalFostoria City Hospital Comment on above:Performed By: #### PERSMR #### [facility] [address] [address] [address] Wesley VillegasAST [Catalytic activity/Vol]44 U/LCritically kxly15-79Yyy [facility] HospitalComment on above:Performed By: #### PERSMR #### [facility] [address] [address] [address] Wesley VillegasBilirubin [Mass/Vol]0.4 mg/dLNormal0.2-1.0[facility] Comment on above:Performed By: #### PERSMR #### [facility] [address] [place] [address] Dr. Wesley VillegasCalcium [Mass/Vol]9.1 mg/dLNormal8.5-10.1[facility] Comment on above:Performed By: #### PERSMR #### [facility] [address] [place] [address] Dr. Wesley VillegasChloride [Moles/Vol]99 mmol/NRkchgr02-430SrkFostoria City Hospital Comment on above:Performed By: #### PERSMR #### [facility] [address] [place] [address] Dr. Wesley VillegasCO2 [Moles/Vol]30.4 mmol/HRoioym03.0-32.0[facility] Comment on above:Performed By: #### PERSMR #### [facility] [address] [place] [address] Dr. Wesley VillegasCreatinine [Mass/Vol]0.93 mg/dLNormal0.55-1.02The [facility] HospitalComment on above:Performed By: #### PERSMR #### [facility] [address] [place] [address] Dr. Wesley GoldbergGFR-AF GHANAIAN>60Normal>=60The [facility] HospitalComment on above:Performed By: #### PERSMR #### [facility] [address] [place] [address] Dr. Yilan ChangEGFR-NON AF GHANAIAN>60Normal>=60The [facility] HospitalComment on above:Performed By: #### PERSMR #### [facility] [address] [place] [address] Dr. Wesley VillegasGlobulin (S) [Mass/Vol]3.7 g/dLNormMercy Health Clermont HospitalComment on above:Performed By: #### PERSMR #### [facility] [address] [address] [address] Wesley VillegasGlucose [Mass/Vol]101 mg/aFWxzcad52-557Ttt [facility] Comment on above:Performed By: #### PERSMR #### [facility] [address] [place] [address] Dr. Wesley VillegasPotassium [Moles/Vol]3.5 mmol/LNormal3.5-5.1The [facility] Comment on above:Performed By: #### PERSMR #### [facility] [address] [place] [address] Dr. Wesley VillegasProtein [Mass/Vol]7.6 g/dLNormal6.4-8.2The [facility] Comment on above:Performed By: #### PERSMR #### [facility] [address] [place] [address] Dr. Wesley VillegasSodium [Moles/Vol]136 mmol/UWlfswe957-945EivFostoria City Hospital Comment on above:Performed By: #### PERSMR #### [facility] [address] [place] [address] Dr. Wesley VillegasUrea nitrogen [Mass/Vol]22.0 mg/dLCritically high7.0-18.0The [facility] HospitalComment on above:Performed By: #### PERSMR #### [facility] [address] [place] [address] Dr. Wesley Johnson nitrogen/Creatinine [Mass ratio]23.7 mg/mgNoalThPremier Health Miami Valley HospitalComment on above:Performed By: #### PERSMR #### [facility] [address] [place] [address] Dr. Wesley Soler RATE WESTERGRENon [id number] RATE22 mm/hrNormal<=30[facility] City HospitalComment on above:Performed By: #### HBCORE #### [facility] [address] [address] [address] Wesley VillegasCYCLIC CITRULLINATED PEPTIDE AB (CCP)on [id number] Antibodies IgG/IgA>250Critically high0-19[facility] HospitalCommunson healthcare [facility] on above:Result Comment: Negative <20 Weak positive 20 - 39 Moderate positive 40 - 59 Strong positive >59Performed By: #### BNP, CMP #### [facility] [address] [address] [address] Wesley VillegasANA by IFAon 72-55-1940Kmqopkadafi Antibodies, IFAPositive AbnormalThe [facility] HospitalCommunson healthcare [facility] hospital on above:Result Comment: Negative <1:80 Borderline 1:80 Positive >1:80Performed By: #### CBC #### [facility] [address] [address] [address] Wesley Gregoriorioljune [facility] CenterComment on above: Performed By: #### CBC #### [facility] [address] [address] [address] Wesley Gregorioromere [facility] CenterCommunson healthcare [facility] on above: Performed By: #### CBC #### [facility] [address] [place] [address] Dr. Wesley VillegasHomogeneous Pattern1:160Critically highThe [facility] Comment on above:Result Comment: ICAP nomenclature: AC-1Performed By: #### CBC #### [facility] [address] [address] [address] Wesley VillegasMidbody PatternC[facility] Clinic [facility] HospitalComment on above: Performed By: #### CBC #### [facility] [address] [place] [address] Dr. Wesley VillegasNote:CommentC[facility] Clinic [facility] HospitalCommunson healthcare grayling hospital on above:Result Comment: For more information about Hep-2 cell patterns use ANApatterns.org, the official website for the International Consensus on Antinuclear Antibody (XENIA) Patterns (ICAP). A positive XENIA result may occur in healthy individuals (low titer) or be associated with a variety of diseases. See interpretation chart which is not all inclusive: . Pattern Antigen Detected Suggested Disease Association Homogeneous DNA(ds,ss), SLE - High titers Nucleosomes, Histones Drug-induced SLE Speckled Sm, [employer] TEAM MEMBER, SCL-70, SLE,MCTD,PSS (diffuse form), SS-A/SS-B Sjogrens Nucleolar SCL-70, PM- 1/SCL High titers Scleroderma, PM/DM Centromere Centromere PSS (limited form)w/Crest syndrome variable Nuclear Dot Sp100,x20-osefqu Primary Biliary Cirrhosis Nuclear GP210, Primary Biliary Cirrhosis Membrane ind[place] A,B,C Performed By: #### CBC #### [facility] [address] [place] [address] Dr. Wesley Olivier Dot [facility] CenterComment on above: Performed By: #### CBC #### [facility] [address] [place] [address] Dr. Wesley lOivier Membrane [facility] CenterCommunson healthcare [facility] on above:Performed By: #### CBC #### [facility] [address] [place] [address] Dr. Wesley Garciaolar [facility] on above: Performed By: #### CBC #### [facility] [address] [place] [address] Dr. Wesley Gloria [facility] on above:Performed By: #### CBC #### [facility] [address] [place] [address] Dr. Wesley VillegasSpeckled [facility] on above: Performed By: #### CBC #### [facility] [address] [place] [address] Dr. Wesley VillegasSpguerda Apparatus [facility] CenterCommunson healthcare [facility] hospital on above:Performed By: #### CBC #### [facility] [address] [place] [address] Dr. Wesley VillegasQUANTIFERON TB GOLD PLUSon [id number] CriteriaComment NormalWVUMedicine Harrison Community Hospital on above:Result Comment: QuantiFERON-TB Gold Plus is a qualitative indirect test for M tuberculosis infection (including disease) and is intended for use in conjunction with risk assessment, radiography, and other medical and diagnostic evaluations. The QuantiFERON-TB Gold Plus result is determined by subtracting the Nil value from either TB antigen (Ag) value. The Mitogen tube serves as a control for the test.Performed By: #### PERSMR #### [facility] [address] [place] [address] Dr. Wesley Grayson IncubationIncubation performed.NormalFostoria City HospitalComment on above:Performed By: #### PERSMR #### [facility] [address] [place] [address] Dr. Wesley Grayson Mitogen Value>10.00NormalThPremier Health Miami Valley HospitalComment on above:Performed By: #### PERSMR #### [facility] [address] [place] [address] Dr. Wesley Grayson Nil Value0.00 IU/mLNUniversity Hospitals Lake West Medical CenterComment on above:Performed By: #### PERSMR #### [facility] [address] [place] [address] Dr. Wesley Grayson TB1 Ag Value0.01 IU/mLNUniversity Hospitals Lake West Medical Center Comment on above:Performed By: #### PERSMR #### [facility] [address] [place] [address] Dr. Wesley Grayson TB2 Ag Value0.01 IU/mLNUniversity Hospitals Lake West Medical Center Comment on above:Performed By: #### PERSMR #### [facility] [address] [place] [address] Dr. Wesley Grayson-TB Gold PlusNegativeNormalNegativeFostoria City HospitalCommunson healthcare gray[facility] hospital on above:Result Comment: No response to M tuberculosis antigens detected. Infection with M tuberculosis is unlikely, but high risk individuals should be considered for additional testing (ATS/IDSA/CDC Clinical Practice Guidelines, 2017). The reference range is an Antigen minus Nil result of <0.35 IU/mL. Chemiluminescence immunoassay methodologyPerformed By: #### PERSMR #### [facility] [address] [place] [address] Dr. Wesley Loving COREon [id number] B Core Ab, TotNegativeNormalNegative The [facility] HospitalComment on above:Performed By: #### HBCORE #### [facility] [address] [place] [address] Dr. Wesley You B SURFACE ANTIGEN SCREENon 99-34-6611FUlOu ScreenNegative NormalNegativeThe [facility] HospitalComment on above:Performed By: #### HBCORE #### [facility] [address] [place] [address] Dr. Wesley Rollins B SURFACE ANTIBODY, QUANTon [id number] B Surf AB Quant<3.1Critically lowImmunity>9.9The OhioHealthment on above: Result Comment: Status of Immunity Anti-HBs Level Inconsistent with Immunity 0.0 - 9.9 Consistent with Immunity >9.9Performed By: #### GIPANEL #### [facility] [address] [place] [address] Dr. Wesley SolorioEUMATOID FACTORon [id number] Latex Turbid.51.5 IU/mL Critically high<14.0The [facility] HospitalComment on above:Performed By: #### GIPANEL #### [facility] [address] [place] [address] Dr. Wesley Rubin ANTIBODIES (Anti SSA/B)on 86-55-2095Eqenhro's Anti-SS-A <0.4Xytjna6.0-0.9The [facility] HospitalComment on above:Performed By: #### BNP, CMP #### [facility] [address] [place] [address] Dr. Wesley Davis'leonor Anti-SS-B<0.1Wprjob8.0-0.9The [facility] HospitalComment on above:Performed By: #### BNP, CMP #### [facility] [address] [place] [address] Dr. Wesley Langston AUTO DIFFon [id number] #0.1 103/ulNormal0.0-0.1The [facility] HospitalComment on above:Performed By: #### BMP #### [facility] [address] [place] [address] Dr. Wesley VillegasBasophils/100 WBC (Bld)0.5 %Normal0.2-2.0[facility] Comment on above:Performed By: #### BMP #### [facility] [address] [place] [address] Dr. Wesley Howard #0.1 103/ulNormal0.0-0.7The [facility] HospitalComment on above: Performed By: #### BMP #### [facility] [address] [place] [address] Dr. Wesley Goldbergosinophils/100 WBC (Bld)0.5 %Critically low0.9-7.0The [facility] HospitalComment on above:Performed By: #### BMP #### [facility] [address] [place] [address] Dr. Wesley Goldbergrythrocyte distribution width (RBC) [Ratio]12.8 %Hhjche50.0-15.0 The [facility] HospitalComment on above:Performed By: #### BMP #### [facility] [address] [place] [address] Dr. Wesley VillegasHematocrit (Bld) [Volume fraction]47.7 %Dykjnf30.0-48.0The [facility] HospitalComment on above:Performed By: #### BMP #### [facility] [address] [place] [address] Dr. Wesley VillegasHemoglobin (Bld) [Mass/Vol]15.8 g/hQFmeteo57.0-16.0The [facility] HospitalComment on above:Performed By: #### BMP #### [facility] [address] [place] [address] Dr. Wesley Emery #0.10 10e3/ulCritically high0.00-0.03The [facility] Comment on above:Performed By: #### BMP #### [facility] [address] [address] [address] Wesley Emery %0.7 %Critically high0.0-0.5The [facility] HospitalComment on above:Performed By: #### BMP #### [facility] [address] [place] [address] Dr. Wesley Vee #1.7 103/ulNormal1.2-3.8The [facility] HospitalComment on above:Performed By: #### BMP #### [facility] [address] [place] [address] Dr. Wesley Markhamhocytes/100 WBC (Bld)11.3 %Critically low20.5-60.0The [facility] HospitalComment on above:Performed By: #### BMP #### [facility] [address] [place] [address] Dr. Wesley ThompsonUAL DIFF REQNONormalThe [facility] HospitalComment on above: Performed By: #### BMP #### [facility] [address] [place] [address] Dr. Wesley Shields (RBC) [Entitic mass]31.3 zvRplfea73.7-34.0The [facility] HospitalComment on above:Performed By: #### BMP #### [facility] [address] [place] [address] Dr. Wesley Shields (RBC) [Mass/Vol]33.1 g/fMWxderk09.9-35.2The [facility] HospitalComment on above:Performed By: #### BMP #### [facility] [address] [place] [address] Dr. Wesley Shields (RBC) [Entitic vol]94.6 uVXfdpwp00.0-99.0The [facility] HospitalComment on above:Performed By: #### BMP #### [facility] [address] [place] [address] Dr. Wesley Corbett #0.5 103/ulNormal0.3-0.8The [facility] HospitalComment on above:Performed By: #### BMP #### [facility] [address] [place] [address] Dr. Wesley Mcgillocytes/100 WBC (Bld)3.4 %Normal1.7-12.0The [facility] Comment on above:Performed By: #### BMP #### [facility] [address] [place] [address] Dr. Wesley Pena #12.3 103/ulCritically high1.4-6.5The [facility] Comment on above:Performed By: #### BMP #### [facility] [address] [place] [address] Dr. Wesley Smithutrophils/100 WBC (Bld)83.6 %Critically high43.0-75.0The [facility] HospitalComment on above:Performed By: #### BMP #### [facility] [address] [place] [address] Dr. Wesley Thurstonlet mean volume (Bld) [Entitic vol]9.7 fLNormal9.5-13.5The [facility] HospitalComment on above:Performed By: #### BMP #### [facility] [address] [place] [address] Dr. Wesley VillegasPLT233 103/aaMrszgr476-353Nic [facility] HospitalComment on above: Performed By: #### BMP #### [facility] [address] [place] [address] Dr. Wesley VillegasRBC5.04 106/ulNormal4.20-5.40The [facility] HospitalComment on above:Performed By: #### BMP #### [facility] [address] [place] [address] Dr. Wesley VillegasWBC14.7 103/ulCritically high4.0-11.0The [facility] HospitalComment on above:Performed By: #### BMP #### [facility] [address] [place] [address] Dr. Wesley Mcmillan [id number] [Mass/Vol]mg/LNormal<=1.0The [facility] HospitalComment on above:Performed By: #### BMP #### [facility] [address] [place] [address] Dr. Wesley PerezF 14(COMP METB)on 52-05-0614Xkphknv [Mass/Vol]3.9 g/dLNormal 3.4-5.0The [facility] HospitalComment on above:Performed By: #### BMP #### [facility] [address] [place] [address] Dr. Wesley VillegasAlbumin/Globulin [Mass ratio]1.0 {ratio}NormalThe [facility] HospitalComment on above:Performed By: #### BMP #### [facility] [address] [place] [address] Dr. Wesley BenitezP [Catalytic activity/Vol]121 U/LCritically fppp14-221Mav [facility] HospitalComment on above:Performed By: #### BMP #### [facility] [address] [place] [address] Dr. Wesley BenitezT [Catalytic activity/Vol]73 U/LCritically cmgp26-35Qhs [facility] HospitalComment on above:Performed By: #### BMP #### [facility] [address] [place] [address] Dr. Wesley Calvo gap [Moles/Vol]14.6 mmol/LNormalThe [facility] Comment on above:Performed By: #### BMP #### [facility] [address] [place] [address] Dr. Wesley VillegasAST [Catalytic activity/Vol]63 U/LCritically fdxo93-06Lzo [facility] HospitalComment on above:Performed By: #### BMP #### [facility] [address] [place] [address] Dr. Wesley VillegasBilirubin [Mass/Vol]0.4 mg/dLNormal0.2-1.0The [facility] Comment on above:Performed By: #### BMP #### [facility] [address] [place] [address] Dr. Wesley VillegasCalcium [Mass/Vol]9.5 mg/dLNormal8.5-10.1[facility] Comment on above:Performed By: #### BMP #### [facility] [address] [address] [address] Wesley VillegasChloride [Moles/Vol]98 mmol/YZykutz53-095Htn [facility] Comment on above:Performed By: #### BMP #### [facility] [address] [address] [address] Wesley VillegasCO2 [Moles/Vol]27.9 mmol/TKzvosf79.0-32.0The [facility] Comment on above:Performed By: #### BMP #### [facility] [address] [address] [address] Wesley VillegasCreatinine [Mass/Vol]0.90 mg/dLNormal0.55-1.02The [facility] HospitalComment on above:Performed By: #### BMP #### [facility] [address] [address] [address] Olson ChangEGFR-AF GHANAIAN>60Normal>=60The [facility] HospitalComment on above:Performed By: #### BMP #### [facility] [address] [address] [address] Wesley GoldbergGFR-NON AF GHANAIAN>60Normal>=60The [facility] HospitalComment on above:Performed By: #### BMP #### [facility] [address] [address] [address] Wesley VillegasGlobulin (S) [Mass/Vol]3.8 g/dLNormalThe [facility] HospitalComment on above:Performed By: #### BMP #### [facility] [address] [address] [address] Wesley VillegasGlucose [Mass/Vol]143 mg/dLCritically byar31-497Aqk [facility] HospitalComment on above:Performed By: #### BMP #### [facility] [address] [address] [address] Wesley VillegasPotassium [Moles/Vol]3.5 mmol/LNormal3.5-5.1The [facility] Comment on above:Performed By: #### BMP #### [facility] [address] [address] [address] Wesley VillegasProtein [Mass/Vol]7.7 g/dLNormal6.4-8.2The [facility] Comment on above:Performed By: #### BMP #### [facility] [address] [address] [address] Wesley VillegasSodium [Moles/Vol]137 mmol/EFqzbra462-771Cdb [facility] Comment on above:Performed By: #### BMP #### [facility] [address] [address] [address] Wesley VillegasUrea nitrogen [Mass/Vol]21.0 mg/dLCritically high7.0-18.0The [facility] HospitalComment on above:Performed By: #### BMP #### [facility] [address] [address] [address] Wesley Johnson nitrogen/Creatinine [Mass ratio]23.3 mg/mgNormalThe [facility] HospitalComment on above:Performed By: #### BMP #### [facility] [address] [address] [address] Wesley Soler RATE WESTERGRENon 88-90-2569ALB RATE29 mm/hrNormal<=30The [facility] HospitalComment on above:Performed By: #### BNP, CMP #### [facility] [address] [address] [address] Wesley VillegasXR HAND BILLY MIN 3Von [id number] HAND BILLY MIN 3VEXAMINATION: XR HAND BILLY MIN 3V HISTORY: Senile osteoporosis COMPARISON: No relevant comparison available. FINDINGS: RIGHT FINDINGS: BONES: No acute fracture or dislocation. Severe degenerative changes with bony remodeling noted at the radiocarpal joints. Subchondral cystic changes of the lunate. No significant degenerative changes. SOFT TISSUES: Negative. No visible soft tissue swelling. OTHER: Negative. LEFT FINDINGS: BONES: No acute fracture or dislocation. Moderate degenerative changes most significant at the radiocarpal joint with remodeling of the distal radius. Subchondral lytic changes primarily of the lunate and capitate. No significant proliferative degenerative change. SOFT TISSUES: Negative. No visible soft tissue swelling. OTHER: Negative. IMPRESSION: RIGHT CONCLUSION: Severe inflammatory/erosive degenerative changes of the radiocarpal joints LEFT CONCLUSION: Moderate inflammatory/erosive degenerative changes of the radiocarpal joints Electronically authenticated by: IRAIDA CARROLL Date: 2022-02-07 17:02[facility] HospitalXR WRIST BILLY MIN 3 Von [id number] WRIST BILLY MIN 3 V EXAMINATION: XR WRIST BILLY MIN 3 V HISTORY: Senile osteoporosis COMPARISON: No relevant comparison available. FINDINGS: RIGHT FINDINGS: BONES: No acute fracture or dislocation. Severe degenerative changes with bony remodeling noted at the radiocarpal joints. Subchondral cystic changes of the lunate. No significant degenerative changes. SOFT TISSUES: Negative. No visible soft tissue swelling. OTHER: Negative. LEFT FINDINGS: BONES: No acute fracture or dislocation. Moderate degenerative changes most significant at the radiocarpal joint with remodeling of the distal radius. Subchondral lytic changes primarily of the lunate and capitate. No significant proliferative degenerative change. SOFT TISSUES: Negative. No visible soft tissue swelling. OTHER: Negative. IMPRESSION: RIGHT CONCLUSION: Severe inflammatory/erosive degenerative changes of the radiocarpal joints LEFT CONCLUSION: Moderate inflammatory/erosive degenerative changes of the radiocarpal joints Electronically authenticated by: IRAIDA CARROLL Date: 2022-02-07 18:02[facility]CULT[facility] URINEon [id number] URINEIsolate 1 Escherichia coli 15,000 cfu/ml of ORGANISM 1 Escherichia coli ANTIBIOTIC M.I.C RX STATUS Ampicillin <=2 S F Ampicillin/Sulbactam <=2 S F Piperacillin/Tazobactam <=4 S F Cefazolin <=4 S F Ceftazidime <=1 S F Ceftriaxone <=1 S F Ertapenem <=0.5 S F Imipenem <=0.25 S F Amikacin <=2 S F Gentamicin <=1 S F Tobramycin <=1 S F Ciprofloxacin <=0.25 S F Levofloxacin <=0.12 S F Nitrofurantoin <=16 S F Trimethoprim/Sulfamethoxazole <=20 S FNormalFostoria City HospitalComment on above:Performed By: #### URCX #### [facility] [address] [place] [address] Dr. Wesley VillegasSAINT ELIZABETH FLORENCE AUTO DIFFon [id number] #0.0 103/ulNormal0.0-0.1F[facility] City HospitalComment on above:Performed By: #### CBC #### [facility] [address] [place] [address] Dr. Wesley VillegasBasophils/100 WBC (Bld)0.3 %Normal0.2-2.0[facility] Comment on above:Performed By: #### CBC #### [facility] [address] [place] [address] Dr. Wesley Howard #0.3 103/ulNormal0.0-0.7The [facility] HospitalComment on above: Performed By: #### CBC #### [facility] [address] [place] [address] Dr. Wesley Goldbergosinophils/100 WBC (Bld)2.8 %Normal0.9-7.0[facility] Comment on above:Performed By: #### CBC #### [facility] [address] [place] [address] Dr. Wesley Goldbergrythrocyte distribution width (RBC) [Ratio]12.6 %Ihifyk61.0-15.0 [facility] City HospitalComment on above:Performed By: #### CBC #### [facility] [address] [place] [address] Dr. Wesley VillegasHematocrit (Bld) [Volume fraction]42.7 %Ynqtgg54.0-48.0[facility] City HospitalComment on above:Performed By: #### CBC #### [facility] [address] [place] [address] Dr. Wesley VillegasHemoglobin (Bld) [Mass/Vol]14.1 g/zIWnobsg84.0-16.0[facility] City HospitalComment on above:Performed By: #### CBC #### [facility] [address] [place] [address] Dr. Wesley Emery #0.05 10e3/ulCritically high0.00-0.03[facility] Comment on above:Performed By: #### CBC #### [facility] [address] [place] [address] Dr. Wesley Emery %0.5 %Normal0.0-0.5The [facility] HospitalComment on above: Performed By: #### CBC #### [facility] [address] [place] [address] Dr. Wesley Vee #2.0 103/ulNormal1.2-3.8The [facility] HospitalComment on above:Performed By: #### CBC #### [facility] [address] [place] [address] Dr. Wesley Markhamhocytes/100 WBC (Bld)18.6 %Critically low20.5-60.0The [facility] HospitalComment on above:Performed By: #### CBC #### [facility] [address] [place] [address] Dr. Wesley Ocasio DIFF REQNONormalThe [facility] HospitalComment on above: Performed By: #### CBC #### [facility] [address] [place] [address] Dr. Wesley Shields (RBC) [Entitic mass]31.8 cmAeecau60.7-34.0The [facility] HospitalComment on above:Performed By: #### CBC #### [facility] [address] [place] [address] Dr. Wesley Shields (RBC) [Mass/Vol]33.0 g/qAIumykd64.9-35.2The [facility] HospitalComment on above:Performed By: #### CBC #### [facility] [address] [place] [address] Dr. Wesley Shields (RBC) [Entitic vol]96.2 kWMzqvfn29.0-99.0The [facility] HospitalComment on above:Performed By: #### CBC #### [facility] [address] [place] [address] Dr. Wesley Corbett #1.2 103/ulCritically high0.3-0.8The [facility] Comment on above:Performed By: #### CBC #### [facility] [address] [place] [address] Dr. Wesley Mcgillocytes/100 WBC (Bld)11.1 %Normal1.7-12.0The [facility] Comment on above:Performed By: #### CBC #### [facility] [address] [place] [address] Dr. Wesley Pena #7.0 103/ulCritically high1.4-6.5ThPremier Health [facility] Comment on above:Performed By: #### CBC #### [facility] [address] [place] [address] Dr. Wesley Smithutrophils/100 WBC (Bld)66.7 %Ejnuzt82.0-75.0The [facility] HospitalComment on above:Performed By: #### CBC #### [facility] [address] [place] [address] Dr. Wesley Thurstonlet mean volume (Bld) [Entitic vol]10.2 fLNormal9.5-13.5The [facility] HospitalComment on above:Performed By: #### CBC #### [facility] [address] [place] [address] Dr. Wesley VillegasPLT184 103/qePqgfod438-130Exm [facility] HospitalComment on above: Performed By: #### CBC #### [facility] [address] [place] [address] Dr. Wesley VillegasRBC4.44 106/ulNormal4.20-5.40The [facility] HospitalComment on above:Performed By: #### CBC #### [facility] [address] [place] [address] Dr. Wesley VillegasWBC10.5 103/ulNormal4.0-11.0The [facility] HospitalComment on above:Performed By: #### CBC #### [facility] [address] [place] [address] Dr. Wesley VillegasPOINT OF CARE GLUCOSEon [id number] [Mass/Vol]117 mg/dL Critically fxfq83-818Nej [facility] HospitalComment on above:Performed By: #### HBCORE #### [facility] [address] [place], [place] [address] Dr. Wesley VillegasPerformed By: #### BMP #### [facility] [address] [place] [address] Dr. Wesley VillegasPROF CHEM 8 (BAS METB)on [id number] gap [Moles/Vol]13.5 mmol/LNormalThe [facility] HospitalComment on above:Performed By: #### BMP #### [facility] [address] [place] [address] Dr. Wesley VillegasCalcium [Mass/Vol]8.8 mg/dLNormal8.5-10.1The [facility] Comment on above:Performed By: #### BMP #### [facility] [address] [place] [address] Dr. Wesley VillegasChloride [Moles/Vol]101 mmol/SSxscns50-938RdkFostoria City Hospital Comment on above:Performed By: #### BMP #### [facility] [address] [place] [address] Dr. Wesley VillegasCO2 [Moles/Vol]27.2 mmol/IZuxnsv39.0-32.0The [facility] Comment on above:Performed By: #### BMP #### [facility] [address] [place] [address] Dr. Wesley VillegasCreatinine [Mass/Vol]0.72 mg/dLNormal0.55-1.02The [facility] HospitalComment on above:Performed By: #### BMP #### [facility] [address] [place] [address] Dr. Wesley GoldbergGFR-AF GHANAIAN>60Normal>=60The [facility] HospitalComment on above:Performed By: #### BMP #### [facility] [address] [place] [address] Dr. Wesley GoldbergGFR-NON AF GHANAIAN>60Normal>=60The [facility] HospitalComment on above:Performed By: #### BMP #### [facility] [address] [place] [address] Dr. Wesley VillegasPotassium [Moles/Vol]3.7 mmol/LNormal3.5-5.1[facility] Comment on above:Performed By: #### BMP #### [facility] [address] [address] [address] Wesley Lopezum [Moles/Vol]138 mmol/TVjlkfl517-331Dbm [facility] Comment on above:Performed By: #### BMP #### [facility] [address] [address] [address] Wesley Johnson nitrogen [Mass/Vol]9.0 mg/dLNormal7.0-18.0[facility] City HospitalComment on above:Performed By: #### BMP #### [facility] [address] [address] [address] Wesley Johnson nitrogen/Creatinine [Mass ratio]12.5 mg/mgNormalThe [facility] HospitalComment on above:Performed By: #### BMP #### [facility] [address] [place] [address] Dr. Wesley Langston W MANUAL DIFFon [id number] LYMPH #NormalFostoria City HospitalComment on above:Performed By: #### CBC #### [facility] [address] [place] [address] Dr. Wesley WhitmoreYPICAL LYMPH %NormalFostoria City HospitalComment on above: Performed By: #### CBC #### [facility] [address] [place] [address] Dr. Wesley Edwards #Normal0.0-0.3The [facility] HospitalComment on above: Performed By: #### CBC #### [facility] [address] [place] [address] Dr. Wesley Edwards %Normal0-5The [facility] HospitalComment on above:Performed By: #### CBC #### [facility] [address] [place] [address] Dr. Wesley Lion #0.00 103/ulNormal0.00-0.10The [facility] HospitalComment on above:Performed By: #### CBC #### [facility] [address] [place] [address] Dr. Wesley Lion %0.0 %Critically low0.2-2.0The [facility] HospitalComment on above:Performed By: #### CBC #### [facility] [address] [place] [address] Dr. Wesley VillegasBLAST #NormalThe [facility] HospitalCommunson healthcare [facility] on above:Performed By: #### CBC #### [facility] [address] [place] [address] Dr. Wesley VillegasBLAST %NormalThe [facility] HospitalComment on above:Performed By: #### CBC #### [facility] [address] [place] [address] Dr. Wesley VillegasCORRECTED WBCNormal4.0-11.0The [facility] on above: Performed By: #### CBC #### [facility] [address] [place] [address] Dr. Wesley Reyes #0.14 103/ulNormal0.00-0.70The [facility] on above:Performed By: #### CBC #### [facility] [address] [place] [address] Dr. Wesley Reyes%1.0 %Normal0.9-7.0The [facility] on above: Performed By: #### CBC #### [facility] [address] [place] [address] Dr. Wesley VillegasHCT42.2 %Szntde03.0-48.0The [facility] HospitalCommunson healthcare [facility] on above: Performed By: #### CBC #### [facility] [address] [place] [address] Dr. Wesley VillegasHGB14.0 g/pfPtqytt62.0-16.0The [facility] HospitalCommunson healthcare [facility] on above: Performed By: #### CBC #### [facility] [address] [place] [address] Dr. Wesley Gael #3.70 103/ulNormal1.20-3.80The [facility]Healthment on above:Performed By: #### CBC #### [facility] [address] [place] [address] Dr. Wesley Gale%27.0 %Gyyumn08.5-60.0The [facility] HospitalComment on above:Performed By: #### CBC #### [facility] [address] [place] [address] Dr. Wesley ShieldsH32.6 qkQvqagd66.7-34.0The [facility] HospitalComment on above: Performed By: #### CBC #### [facility] [address] [place] [address] Dr. Wesley ShieldsHC33.2 g/dzZquspb04.9-35.2The [facility] HospitalComment on above:Performed By: #### CBC #### [facility] [address] [place] [address] Dr. Wesley ShieldsV98.1 fSAewajq57.0-99.0The [facility] HospitalComment on above: Performed By: #### CBC #### [facility] [address] [place] [address] Dr. Wesley AlonzoOCYTE #NormalFostoria City HospitalComment on above: Performed By: #### CBC #### [facility] [address] [place] [address] Dr. Wesley AlonzoOCYTE %NormalThe [facility] HospitalComment on above: Performed By: #### CBC #### [facility] [address] [place] [address] Dr. Wesley Gaspar#0.69 103/ulNormal0.30-0.80The [facility] HospitalComment on above:Performed By: #### CBC #### [facility] [address] [place] [address] Dr. Wesley Gaspar%5.0 %Normal1.7-12.0The [facility] HospitalComment on above: Performed By: #### CBC #### [facility] [address] [place] [address] Dr. Wesley MurphyV10.1 fLNormal9.5-13.5The [facility] HospitalComment on above: Performed By: #### CBC #### [facility] [address] [address] [address] Wesley LiOCYTE #NormalThe [facility] HospitalComment on above:Performed By: #### CBC #### [facility] [address] [place] [address] Dr. Wesley LiOCYTE %NormalThe [facility] HospitalComment on above:Performed By: #### CBC #### [facility] [address] [place] [address] Dr. Wesley OdonnellNormalThe [facility] HospitalComment on above:Performed By: #### CBC #### [facility] [address] [place] [address] Dr. Wesley SullivanT167 103/acCixjhj593-936Imu [facility] HospitalComment on above: Performed By: #### CBC #### [facility] [address] [place] [address] Dr. Wesley DwyerC4.30 106/ulNormal4.20-5.40The [facility] HospitalComment on above:Performed By: #### CBC #### [facility] [address] [place] [address] Dr. Wesley PerezW13.0 %Wlyqpw76.0-15.0The [facility]Healthment on above: Performed By: #### CBC #### [facility] [address] [place] [address] Dr. Wesley Torrez #9.18 103/ulCritically high1.40-6.50The [facility] Comment on above:Performed By: #### CBC #### [facility] [address] [place] [address] Dr. Wesley Torrez %67.0 %Zrsbtz86.0-75.0The [facility] HospitalComment on above: Performed By: #### CBC #### [facility] [address] [place] [address] Dr. Wesley GuyBC13.7 103/ulCritically high4.0-11.0The [facility] HospitalComment on above:Performed By: #### CBC #### [facility] [address] [place] [address] Dr. Wesley VillegasCT STROKE HEAD WOon [id number] STROKE HEAD WOEXAMINATION: CT STROKE HEAD WO, 12/24/2021 6:52 PM EDT HISTORY: Postoperative care COMPARISON: None. TECHNIQUE: CT scan of the head was performed without IV contrast. CT dose reduction technique was used, including Automated Exposure Control. FINDINGS: BRAIN PARENCHYMA/CSF SPACES: Moderately enlarged ventricles and sulci consistent with atrophy. There is no hemorrhage, mass effect or midline shift. Moderate calcification of the cavernous carotid arteries. Mild low-attenuation in the paravertebral white matter compatible with chronic small vessel ischemia. PARANASAL SINUSES: Mild mucosal thickening of the left sphenoid sinus suggestive of chronic sinusitis. SKULL BASE AND CALVARIUM: Normal. EXTRACRANIAL SOFT TISSUES: Normal. IMPRESSION: 1. No acute intracranial abnormality. 2. Atherosclerotic calcification and chronic small vessel ischemia. Electronically authenticated by: CASSIA CARROLL Date: 2021-12-24 19:46NormMercy Health Clermont HospitalCULTURE BLOODon [id number] examination of blood, cultureCulture Observations: NO GROWTH AT 5 DAYS.NormalFostoria City HospitalComment on above:Performed By: #### PERSMR #### [facility] [address] [place] [address] Dr. Wesley VillegasMicroscopic examination of blood, cultureCulture Observations: NO GROWTH AT 5 DAYS.NormalFostoria City HospitalComment on above:Performed By: #### PERSMR #### [facility] [address] [place] [address] Dr. Wesley VillegasPOINT OF CARE GLUCOSEon [id number] [Mass/Vol]133 mg/dL Critically kgas44-584ZoiFostoria City HospitalComment on above:Performed By: #### BNP, CMP #### [facility] [address] [place] [address] Dr. Wesley VillegasGlucose [Mass/Vol]111 mg/dLCritically etqf99-004Rwh [facility] HospitalComment on above:Performed By: #### BMP #### [facility] [address] [place] [address] Dr. Wesley VillegasPROF CHEM 8 (BAS METB)on 03-45-6235Orthy gap [Moles/Vol]9.7 mmol/LNormalThe [facility] HospitalComment on above:Performed By: #### BNP, CMP #### [facility] [address] [address] [address] Wesley VillegasCalcium [Mass/Vol]8.6 mg/dLNormal8.5-10.1The [facility] Comment on above:Performed By: #### BNP, CMP #### [facility] [address] [address] [address] Wesley VillegasChloride [Moles/Vol]101 mmol/FEhayoc29-735Elo [facility] Comment on above:Performed By: #### BNP, CMP #### [facility] [address] [place] [address] Dr. Wesley VillegasCO2 [Moles/Vol]29.9 mmol/JPpmhnr62.0-32.0The [facility] Comment on above:Performed By: #### BNP, CMP #### [facility] [address] [place] [address] Dr. Wesley VillegasCreatinine [Mass/Vol]0.75 mg/dLNormal0.55-1.02The [facility] HospitalComment on above:Performed By: #### BNP, CMP #### [facility] [address] [place] [address] Dr. Wesley GoldbergGFR-AF GHANAIAN>60Normal>=60The [facility] HospitalComment on above:Performed By: #### BNP, CMP #### [facility] [address] [place] [address] Dr. Wesley GoldbergGFR-NON AF GHANAIAN>60Normal>=60The [facility] HospitalComment on above:Performed By: #### BNP, CMP #### [facility] [address] [place] [address] Dr. Wesley VillegasGlucose [Mass/Vol]149 mg/dLCritically woxg72-412Hjl [facility] HospitalComment on above:Performed By: #### BNP, CMP #### [facility] [address] [place] [address] Dr. Wesley VillegasPotassium [Moles/Vol]3.6 mmol/LNormal3.5-5.1The [facility] Comment on above:Performed By: #### BNP, CMP #### [facility] [address] [place] [address] Dr. Wesley Sladedium [Moles/Vol]137 mmol/NUzdoqe390-363Nxg [facility] Comment on above:Performed By: #### BNP, CMP #### [facility] [address] [place] [address] Dr. Wesley VillegasUrea nitrogen [Mass/Vol]8.0 mg/dLNormal7.0-18.0The [facility] HospitalComment on above:Performed By: #### BNP, CMP #### [facility] [address] [place] [address] Dr. Wesley VillegasUrea nitrogen/Creatinine [Mass ratio]10.7 mg/mgNormalThe [facility] HospitalComment on above:Performed By: #### BNP, CMP #### [facility] [address] [place] [address] Dr. Wesley York RANDOM W/MICROSCOPICon 29-20-6888STBRSQZHCIAQ SEENNormalNONE SEENFostoria City HospitalComment on above:Performed By: #### HBCORE #### [facility] [address] [place] [address] Dr. Wesley Carrion Ql (U)NegativeNormalNEGATIVEThe [facility] Comment on above:Performed By: #### HBCORE #### [facility] [address] [place] [address] Dr. Wesley VillegasCASTNONE SEENNormalNONE SEENFostoria City HospitalComment on above:Performed By: #### HBCORE #### [facility] [address] [place] [address] Dr. Wesley Mosleyarity (U)CLEARNormalCLEARThe [facility] HospitalComment on above: Performed By: #### HBCORE #### [facility] [address] [place] [address] Dr. Yilan ChangColor (U)YELLOWNormalYELLOWFostoria City HospitalComment on above: Performed By: #### HBCORE #### [facility] [address] [address] [address] Wesley VillegasCrystals LM Nom (Urine sed)NONE SEENNormalNONE SEENFostoria City HospitalComment on above:Performed By: #### HBCORE #### [facility] [address] [address] [address] Wesley Christiansonthelial cells LM Ql (Urine sed)FEWAbnormalNONE SEEN /RAREFostoria City HospitalComment on above:Performed By: #### HBCORE #### [facility] [address] [place] [address] Dr. Wesley VillegasGlucose Ql (U)NegativeNormalNEGATIVEFostoria City HospitalComment on above:Performed By: #### HBCORE #### [facility] [address] [place] [address] Dr. Wesley VillegasHemoglobin Ql (U)LARGEAbnormalNEGATIVEMarietta Memorial Hospital on above:Performed By: #### HBCORE #### [facility] [address] [address] [address] Wesley VillegasKetones Ql (U)NegativeNormalNEGATIVEFostoria City HospitalComment on above:Performed By: #### HBCORE #### [facility] [address] [address] [address] Wesley VillegasLEUKOCYTESNegativeNormalNEGATIVEFostoria City HospitalComment on above:Performed By: #### HBCORE #### [facility] [address] [address] [address] Wesley VillegasMUCOUSNONE SEENNormalNONE SEENFostoria City HospitalComment on above:Performed By: #### HBCORE #### [facility] [address] [place] [address] Dr. Wesley VillegasNitrite Ql (U)NegativeNormalNEGATIVEFostoria City HospitalComment on above:Performed By: #### HBCORE #### [facility] [address] [place] [address] Dr. Wesley VillegaspH (U)7.0 [pH]Normal5-9The [facility] HospitalComment on above: Performed By: #### HBCORE #### [facility] [address] [place] [address] Dr. Wesley VillegasArfbzIMV33-45Uyucnzkr3-2Mfn [facility] HospitalComment on above: Performed By: #### HBCORE #### [facility] [address] [place] [address] Dr. Wesley VillegasSPEC GRAVITY1.982Yvnbzz3.005-<=1.025The [facility] HospitalComment on above:Performed By: #### HBCORE #### [facility] [address] [place] [address] Dr. Wesley York PROTEINNegativeNormalNEGATIVE/ TRACEThe [facility] Comment on above:Performed By: #### HBCORE #### [facility] [address] [place] [address] Dr. Wesley Allenbilcarolinegen Qn (U)0.2 {Dariel'U}/dLNormal0.2 - 1.0The [facility] HospitalComment on above:Performed By: #### HBCORE #### [facility] [address] [place] [address] Dr. Wesley VillegasWBC0-2AbnormalNONE SEENThe [facility] HospitalComment on above: Performed By: #### HBCORE #### [facility] [address] [place] [address] Dr. Wesley Langston AUTO DIFFon [id number] #0.0 103/ulNormal0.0-0.1The [facility] HospitalComment on above:Performed By: #### BMP #### [facility] [address] [place] [address] Dr. Wesley VillegasBasophils/100 WBC (Bld)0.3 %Normal0.2-2.0[facility] Comment on above:Performed By: #### BMP #### [facility] [address] [place] [address] Dr. Wesley Howard #0.1 103/ulNormal0.0-0.7The [facility] HospitalComment on above: Performed By: #### BMP #### [facility] [address] [place] [address] Dr. Wesley Goldbergosinophils/100 WBC (Bld)0.6 %Critically low0.9-7.0The [facility] HospitalComment on above:Performed By: #### BMP #### [facility] [address] [place] [address] Dr. Wesley Goldbergrythrocyte distribution width (RBC) [Ratio]13.2 %Bokqqi48.0-15.0 The [facility] HospitalComment on above:Performed By: #### BMP #### [facility] [address] [place] [address] Dr. Wesley VillegasHematocrit (Bld) [Volume fraction]39.2 %Vppigq98.0-48.0The [facility] HospitalComment on above:Performed By: #### BMP #### [facility] [address] [place] [address] Dr. Wesley VillegasHemoglobin (Bld) [Mass/Vol]12.9 g/aFWeikrr56.0-16.0The [facility] HospitalComment on above:Performed By: #### BMP #### [facility] [address] [place] [address] Dr. Wesley Emery #0.04 10e3/ulCritically high0.00-0.03[facility] Comment on above:Performed By: #### BMP #### [facility] [address] [place] [address] Dr. Wesley Emery %0.3 %Normal0.0-0.5The [facility] HospitalComment on above: Performed By: #### BMP #### [facility] [address] [place] [address] Dr. Wesley MarkhamH #1.5 103/ulNormal1.2-3.8The [facility] HospitalComment on above:Performed By: #### BMP #### [facility] [address] [place] [address] Dr. Wesley Redmphocytes/100 WBC (Bld)12.5 %Critically low20.5-60.0The [facility] HospitalComment on above:Performed By: #### BMP #### [facility] [address] [place] [address] Dr. Wesley ThompsonUAL DIFF REQNONormalThe [facility] HospitalComment on above: Performed By: #### BMP #### [facility] [address] [place] [address] Dr. Wesley Shields (RBC) [Entitic mass]32.3 mhXwwxcn98.7-34.0The [facility] HospitalComment on above:Performed By: #### BMP #### [facility] [address] [place] [address] Dr. Wesley Shields (RBC) [Mass/Vol]32.9 g/rCXyjhqg56.9-35.2The [facility] HospitalComment on above:Performed By: #### BMP #### [facility] [address] [place] [address] Dr. Wesley Shields (RBC) [Entitic vol]98.2 wBRuvise25.0-99.0The [facility] HospitalComment on above:Performed By: #### BMP #### [facility] [address] [place] [address] Dr. Wesley Corbett #1.4 103/ulCritically high0.3-0.8ThPrem[facility] Comment on above:Performed By: #### BMP #### [facility] [address] [place] [address] Dr. Wesley Mcgillocytes/100 WBC (Bld)11.8 %Normal1.7-12.0[facility] Comment on above:Performed By: #### BMP #### [facility] [address] [place] [address] Dr. Wesley Pena #8.7 103/ulCritically high1.4-6.5[facility] Comment on above:Performed By: #### BMP #### [facility] [address] [address] [address] Wesley VillegasNeutrophils/100 WBC (Bld)74.5 %Soqslu58.0-75.0The [facility] on above:Performed By: #### BMP #### [facility] [address] [address] [address] Wesley VillegasPlatelet mean volume (Bld) [Entitic vol]9.9 fLNormal9.5-13.5The [facility] on above:Performed By: #### BMP #### [facility] [address] [place] [address] Dr. Wesley VillegasPLT153 103/faXowstn584-846Suk [facility] on above: Performed By: #### BMP #### [facility] [address] [place] [address] Dr. Wesley VillegasRBC3.99 106/ulCritically low4.20-5.40The [facility] on above:Performed By: #### BMP #### [facility] [address] [place] [address] Dr. Wesley VillegasWBC11.7 103/ulCritically high4.0-11.0The [facility] on above:Performed By: #### BMP #### [facility] [address] [place] [address] Dr. Wesley VillegasPOINT OF CARE GLUCOSEon 24-17-5857Utofgbs [Mass/Vol]190 mg/dL Critically hkzz25-633Mkv [facility] on above:Performed By: #### CBC #### [facility] [address] [place] [address] Dr. Wesley VillegasGlucose [Mass/Vol]162 mg/dLCritically wckq35-400Uuj [facility] on above:Performed By: #### GIPANEL #### [facility] [address] [place] [address] Dr. Wesley VillegasPROF CHEM 8 (BAS METB)on 73-70-1435Fufbe gap [Moles/Vol]8.9 mmol/LNormalThe [facility] HospitalComment on above:Performed By: #### PERSMR #### [facility] [address] [address] [address] Wesley VillegasCalcium [Mass/Vol]8.4 mg/dLCritically low8.5-10.1The [facility] HospitalComment on above:Performed By: #### PERSMR #### [facility] [address] [address] [address] Wesley VillegasChloride [Moles/Vol]100 mmol/KDsueag14-548Zba [facility] Comment on above:Performed By: #### PERSMR #### [facility] [address] [address] [address] Wesley VillegasCO2 [Moles/Vol]30.4 mmol/ZPpswcx09.0-32.0[facility] Comment on above:Performed By: #### PERSMR #### [facility] [address] [address] [address] Wesley VillegasCreatinine [Mass/Vol]0.83 mg/dLNormal0.55-1.02The [facility] HospitalCommunson healthcare [facility] on above:Performed By: #### PERSMR #### [facility] [address] [address] [address] Wesley GoldbergGFR-AF GHANAIAN>60Normal>=60The [facility] HospitalComment on above:Performed By: #### PERSMR #### [facility] [address] [address] [address] Wesley GoldbergGFR-NON AF GHANAIAN>60Normal>=60The [facility] HospitalComment on above:Performed By: #### PERSMR #### [facility] [address] [address] [address] Wesley VillegasGlucose [Mass/Vol]175 mg/dLCritically mdgz00-490Yxk [facility] HospitalComment on above:Performed By: #### PERSMR #### [facility] [address] [address] [address] Wesley VillegasPotassium [Moles/Vol]3.3 mmol/LCritically low3.5-5.1The [facility] HospitalComment on above:Performed By: #### PERSMR #### [facility] [address] [address] [address] Wesley VillegasSodium [Moles/Vol]136 mmol/DJysmqi922-529Kdz [facility] Comment on above:Performed By: #### PERSMR #### [facility] [address] [place] [address] Dr. Wesley VillegasUrea nitrogen [Mass/Vol]9.0 mg/dLNormal7.0-18.0The [facility] HospitalComment on above:Performed By: #### PERSMR #### [facility] [address] [place] [address] Dr. Wesley VillegasUrea nitrogen/Creatinine [Mass ratio]10.8 mg/mgNormalThe [facility] HospitalComment on above:Performed By: #### PERSMR #### [facility] [address] [place] [address] Dr. Wesley VillegasPROF CHEM 8 (BAS METB)on 98-29-7845Egrhu gap [Moles/Vol]11.1 mmol/LNormalFostoria City HospitalComment on above:Performed By: #### BMP #### [facility] [address] [place] [address] Dr. eWsley VillegasCalcium [Mass/Vol]9.1 mg/dLNormal8.5-10.1[facility] Comment on above:Performed By: #### BMP #### [facility] [address] [place] [address] Dr. Wesley VillegasChloride [Moles/Vol]100 mmol/WLvbqjr54-507Cqe [facility] Comment on above:Performed By: #### BMP #### [facility] [address] [place] [address] Dr. Wesley VillegasCO2 [Moles/Vol]30.7 mmol/DOjuzmh82.0-32.0[facility] Comment on above:Performed By: #### BMP #### [facility] [address] [place] [address] Dr. Wesley VillegasCreatinine [Mass/Vol]0.86 mg/dLNormal0.55-1.02The [facility] HospitalComment on above:Performed By: #### BMP #### [facility] [address] [address] [address] Wesley GoldbergGFR-AF GHANAIAN>60Normal>=60The [facility] HospitalComment on above:Performed By: #### BMP #### [facility] [address] [address] [address] Wesley GoldbergGFR-NON AF GHANAIAN>60Normal>=60The [facility] HospitalComment on above:Performed By: #### BMP #### [facility] [address] [address] [address] Wesley VillegasGlucose [Mass/Vol]124 mg/dLCritically tfhs18-717Hig [facility]ment on above:Performed By: #### BMP #### [facility] [address] [address] [address] Wesley VillegasPotassium [Moles/Vol]3.8 mmol/LNormal3.5-5.1[facility] Comment on above:Performed By: #### BMP #### [facility] [address] [address] [address] Wesley VillegasSodium [Moles/Vol]138 mmol/FQhchim849-982Okp [facility] Comment on above:Performed By: #### BMP #### [facility] [address] [address] [address] Wesley VillegasUrea nitrogen [Mass/Vol]13.0 mg/dLNormal7.0-18.0The [facility]Healthment on above:Performed By: #### BMP #### [facility] [address] [address] [address] Wesley Johnson nitrogen/Creatinine [Mass ratio]15.1 mg/mgNormalThe [facility] HospitalComment on above:Performed By: #### BMP #### [facility] [address] [place] [address] Dr. Wesley VillegasCT ANKLE LT WO CONon 82-08-9705VF ANKLE LT WO CONEXAMINATION: CT ANKLE LT WO CON HISTORY: Fracture of calcaneus COMPARISON: 10/06/2021 TECHNIQUE: Multi-planar CT images were created without IV contrast. Dose reduction techniques were achieved by using automated exposure control and/or adjustment of mA and/or kV according to patient size and/or use of iterative reconstruction technique. FINDINGS: BONES: There is a fragmented collapsed appearance of the calcaneus with plantar displacement of the talus. No dislocation. Severe degenerative changes with joint space narrowing marginal osteophyte formation and extensive subchondral cystic changes. SOFT TISSUES: Mild diffuse soft tissue swelling. EFFUSION: None visible. OTHER: Negative. IMPRESSION: Fragmented collapsed appearance of the calcaneus Marked mixed proliferative and erosive degenerative changes Electronically authenticated by: IRAIDA CARROLL Date: 2021-10-10 17:41[facility] HospitalXR [facility] MIN 3 Von 66-90-7149WU ANKLE LT MIN 3 VEXAM: XR ANKLE LT MIN 3 V, XR FOOT LT MIN 3 VIEWS HISTORY: Pain of left ankle joint COMPARISON: None. TECHNIQUE: 3 radiographic views of the left ankle; 3 radiographic views of the left foot FINDINGS: Ankle: Osseous demineralization without acute fracture or dislocation. Congruent ankle mortise. Unremarkable soft tissues. Foot: Diffuse osseous demineralization. Focal aggressive demineralization at the little digit metatarsal head with cortical discontinuity. Severe degeneration of the midfoot. Collapse of the calcaneus and posterior talus resulting rocker-bottom deformity. Soft tissue swelling about the forefoot with ovoid soft tissue density abutting the little digit MTP with focal calcification. IMPRESSION: Sequela of findings suggest neuropathic arthropathy (Charcot foot). Fracture/collapse of the talus and calcaneus. Severe mid foot degeneration. Acquired flatfoot deformity. Soft tissue findings concerning for ulcer/abscess at the fifth digit MTP with osseous findings suspicious for osteomyelitis. Correlate clinically. This report was added to the non-STAT OPS notification list at approximately 0632 MST on 10/08/2021 6:32 AM MDT. Electronically authenticated by: CASSIA SHELBY Date: 2021-10-08 08:33[facility] Encounters Encounter DateEncounter TypeCare ProviderFacilityStart: 11-19-2023 End: 24-03-2343uggeyzodlsRPZPPQCincinnati VA Medical Centertart: 05-29-2023 End: 70-53-6405dlwenhonrzYZWCLVCincinnati VA Medical Centertart: 02-13-2023 End: 18-33-4248rhjqfxzkhlBQEXJWCincinnati VA Medical Centertart: 09-06-2022 End: 23-68-5363aznrseoknpID DOCTOR MISCFacility:L2Hitvg: 92-87-1259vdgqnbcbkp PETER D HIGHLANDERFacility:W6Hdqkt: 05-17-2022 End: 83-91-2047tgvvzbqujvEZSCX D HIGHLANDERFacility:P5Wtkmb: 05-09-2022 ambulatoryDR SAMIR HOY .Facility:J5Iddpy: 04-28-2022 End: 24-77-8373Pdrlmezcmw and management of inpatientDR SAMIR HOY .Facility:H1 Start: 04-24-2022 End: 69-43-1986achvdrbwjcRQ DOCTOR MISCFacility:F3Esska: 02-95-9440Nzquzpfub for other preprocedural examinationPETER D [facility] Centertart: 67-30-8063Uzpziwysb for preprocedural laboratory examinationPETER D [facility], Avontart: 03-27-2022 End: 54-14-4092ukcodnddndVLAWY D HIGHLANDERFacility:S2Eownp: 03-24-2022 End: 72-63-2605taegeberzuYTCIA D HIGHLANDERFacility:V6Qwkxh: 03-24-2022 End: 16-13-3448Iawxhgyui for preprocedural laboratory examinationPETER D HIGHLANDERFacility:J0Raile: 03-17-2022 End: 45-28-6900vwqykaziujJJKOO D HIGHLANDERFacility:Q9Eyfkm: 02-22-2022 End: 45-15-4894xlmdgwcjaoZXKQD D HIGHLANDERFacility:A5Yblwz: 02-07-2022 End: 34-55-5684nprewtxebxRB DOCTOR MISCFacility:R4Wtihh: 01-06-2022 End: 31-87-1927kebxabfzuaFSTGH D HIGHLANDERFacility:M6Prgiv: 12-23-2021 End: 30-91-5936qqhmlmojowUC SAMIR HOY .Facility:A8Pbyri: 03-33-7933uphjzngzwb PETER D [facility]Fac[facility]:A1Gvnac: 72-08-1346Jmoxcqilu for preprocedural cardiovascular examinationPETER D [facility] HospitalStart: 00-15-8471Zquxjpzsn for preprocedural laboratory examinationPETER D [facility] HospitalStart: 12-07-2021 End: 00-23-8381mkfvgnnatdWRVXW D [facility]Fac[facility]:P3Cexhg: 12-07-2021 End: 10-28-0219Yqxtybgcn for preprocedural cardiovascular examinationPETER D [facility]Fac[facility]:M6Reikt: 11-03-2021 End: 91-29-3757kydelcwctjYGMBB D [facility]KEFac[facility]:H2Osvrb: 10-10-2021 End: 25-35-7171houqjpiwrwWALZQ D [facility]KEFac[facility]:Z3Bedaz: 10-06-2021 End: 78-48-3635zjtwiofjpxRVERM D [facility]KEFac[facility]:H1 Procedures DateProcedureProcedure DetailPerforming ClinicianStart: 59-92-1039Afuadvcg of Left Ankle Tendon, Open ApproachHOLY REDEEMER HOSPITALStart: 22-20-2910Llncpu of Left Tarsal Joint with Synthetic Substitute, Open ApproachHOLY REDEEMER [facility]OSPITAL Payers DatePayer CategoryPayerPolicy [id number] 1960Self-pay [id number] .[id number] [id number] .[id number] .[id number] 2.1.982605.3.57[id number] 2.1.682795.3.57[id number] 2.16840.1.554092.3.57[id number] 2.16840.1.202975.3.57[id number] 2.16840.1.864571.3.57[id number] 2.16840.1.199105.3.57[id number] 2.840.1.681830.3.579.2.8[id number] 2.0.1.023294.3.57[id number] 2.840.1.173924.3.57[id number] 2.840.1.680005.3.57[id number] 2.840.1.946917.3.579.2.[id number] 2.840.1.276642.3.57[id number] 2.840.1.047986.3.57[id number] 2.840.1.064732.3.579.[id number] 2.840.1.459763.3.57[id number] 2.840.1.808138.3.57[id number] 2.0.1.326483.3.579.2.593 Clinical Notes 12-23-2021 to 11-19-2023 Note Date & WeisPggqNrnsmvsz04-58-7731 NotePlease discuss with PCP for a Neurology referralBl[facility] NoteSubjective Patient ID: Alison Thurston is a 68 y.o. female who presents for No chief complaint on file.. HPI 68 year old female with h/o seropositive RA diagnosed approximately 30 years ago was referred to us by her PCP for medication management. She was seen as a new patient by us on 01/30/22. She is here for follow up. Pt reports that 30 years ago, she used to go a [employer] who diagnosed her with RA and started her on a medicine that she does not remember the name of. It did not help her symptoms and she was switched to MTX. Initially it controlled her symptoms but over the years, but later on it was not helping her. She stopped taking it sometime in mid 2021 and was started on prednisone 10 mg by her PCP. She was getting am stiffness which lasts her couple hours but was doing well since she started prednisone. She was concerned about excessive hair fall while being on methotrexate and there were plans to start her on Humira but it wasn't done due to her ankle surgery. Of note, she had L ankle surgery (2/2 fracture) and was informed by her Orthopedic surgeon that she saw weak bones and started her on Alendronate. We obtained a DEXA scan which showed Osteoporosis. On 09/08/22, patient reported that her joint pain and morning stiffness has completely resolved. She was successfully tapered off of Prednisone and has been off of methotrexate since mid 2021 approx. Today, she continues to report no flares. Have been off predniosne since approx October 2022 and has no joint pain. She was last seen by us in May 2023. He reports that for approximately a year now he has been experiencing frequent falls which has significantly worsened in the last 6 months or so. She can barely walk 20 steps when she starts to fall, they are worse when she tries to look sideways. She has been using her walker most of the time but continues to fall despite using it. Denies any urinary, stool incontinence, worsening back pain, headache, weight loss, numbness/tingling, vision changes. He has not addressed this issue with her PCP but did work with physical therapy recently. She does not think it helped with her symptoms. Review of Systems Constitutional: Negative for activity change, appetite change, chills, diaphoresis and fatigue. HENT: Negative for dental problem, drooling, mouth sores, rhinorrhea, sinus pain, sore throat and tinnitus. Eyes: Negative for pain, redness and itching. Respiratory: Negative for cough, shortness of breath and stridor. Cardiovascular: Negative for chest pain and leg swelling. Gastrointestinal: Negative for abdominal pain, constipation, diarrhea, nausea and vomiting. Endocrine: Negative for cold intolerance and heat intolerance. Genitourinary: Negative for dysuria, frequency and urgency. Musculoskeletal: Positive for gait problem. Negative for arthralgias (R lateral hip and finger pain), back pain and joint swelling. Skin: Negative for color change and pallor. Objective There were no vitals taken for this visit. Physical Exam Constitutional: Appearance: Normal appearance. Comments: Patient is sitting in a wheelchair accompanied by her family member HENT: Head: Normocephalic and atraumatic. Nose: Nose normal. Mouth/Throat: Mouth: Mucous membranes are moist. Eyes: Extraocular Movements: Extraocular movements intact. Pulmonary: Effort: Pulmonary effort is normal. Musculoskeletal: General: Normal range of motion. Neurological: Mental Status: She is alert. Assessment/Plan There are no diagnoses linked to this encounter. 68 year old female with h/o RA diagnosed approximately 30 years ago is here for follow up. Her rheumatoid arthritis patient remission (being monitored off of medications) and we are treating her for osteoporosis. 1. H/O erosive seropositive RA -Elevated RF and CCP, x rays done in 2021 showed erosions -Pt reports she was diagnosed more than 30 years ago approx -she was started her on a medicine that she does not remember the name of. It did not help her symptoms and she was switched to MTX. -Initially MTX controlled her symptoms but over the years, it was not helping her and was causing excessive hair fall. -She stopped taking methotrexate in 2021 and was started on prednisone 10 mg by her PCP -She has been off of Prednisone since October 2022 and denies any flares P: -Continue to hold MTX -Continue to hold Prednisone -We believe she is in remission and will monitor her off of medications -May take dose pack in case of flares 2. Osteoporosis -Pt had a R heel fractures that was missed for 2 years -She has it operated in 2021 -DEXA showed T score -2.8 -Currently on Alendronate, started in 2021 P: -Refill alendronate, reports no side effects from it -Orders placed for serum creatinine today -Repeat DEXA scan in 2023, order on next visit 3. Elevated LFTS- RESOLVED -Currently off methotrexate 4. Lower back pain-I (more content not included)...[facility]12-12[facility]23 Note Attestation signed by Gem Kiser MD at 05/29/2023 1:32 PM I personally saw and examined the patient on the same date of service as resident/fellow . I discussed the findings and therapeutic plan with the resident/fellow . I agree with the documentation, except for any edits/updates below. Teaching Physician's Revisions: Subjective Patient ID: Alison Thurston is a 67 y.o. female who presents for Follow-up. HPI 67 year old female with h/o seropositive RA diagnosed approximately 30 years ago was referred to us by her PCP for medication management. She was seen as a new patient by us on 01/30/22. She is here for follow up. Pt reports that 30 years ago, she used to go a [employer] who diagnosed her with RA and started her on a medicine that she does not remember the name of. It did not help her symptoms and she was switched to MTX. Initially it controlled her symptoms but over the years, but later on it was not helping her. She stopped taking it sometime in mid 2021 and was started on prednisone 10 mg by her PCP. She was getting am stiffness which lasts her couple hours but was doing well since she started prednisone. She was concerned about excessive hair fall while being on methotrexate and there were plans to start her on Humira but it wasn't done due too her ankle surgery. Of note, she had L ankle surgery (2/2 fracture) and was informed by her Orthopedic surgeon that she saw weak bones and started her on Alendronate. We obtained a DEXA scan which showed Osteoporosis. On 09/08/22, patient reported that her joint pain and morning stiffness has completely resolved. She was successfully tapered off of Prednisone and has been off of methotrexate since mid 2021 approx. Today, she continues to report no flares. Have been off predniosne since approx October 2022 and is happy with her progress. She does take Medrol dose pack when she feels pain in her hands but does not think it helps her symptoms as much as aleve. She is also complaining of R trochanteric bursa pain. Review of Systems Constitutional: Negative for activity change, appetite change, chills, diaphoresis and fatigue. HENT: Negative for dental problem, drooling, mouth sores, rhinorrhea, sinus pain, sore throat and tinnitus. Eyes: Negative for pain, redness and itching. Respiratory: Negative for cough, shortness of breath and stridor. Cardiovascular: Negative for chest pain and leg swelling. Gastrointestinal: Negative for abdominal pain, constipation, diarrhea, nausea and vomiting. Endocrine: Negative for cold intolerance and heat intolerance. Genitourinary: Negative for dysuria, frequency and urgency. Musculoskeletal: Positive for arthralgias (R lateral hip and finger pain). Negative for back pain, gait problem and joint swelling. Skin: Negative for color change and pallor. Objective Visit Vitals BP 119/84 (BP Location: Left arm, Patient Position: Sitting) Pulse 79 Physical Exam Constitutional: Appearance: Normal appearance. HENT: Head: Normocephalic and atraumatic. Nose: Nose normal. Mouth/Throat: Mouth: Mucous membranes are moist. Eyes: Extraocular Movements: Extraocular movements intact. Pulmonary: Effort: Pulmonary effort is normal. Musculoskeletal: General: Normal range of motion. Comments: R trochanteric bursa tenderness on palpation Neurological: Mental Status: She is alert. Assessment/Plan There are no diagnoses linked to this encounter. 67 year old female with h/o RA diagnosed approximately 30 years ago is here for follow up. 1. H/O erosive seropositive RA -Elevated RF and CCP, x rays done in 2021 showed erosions -Pt reports she was diagnosed more than 30 years ago approx -she was started her on a medicine that she does not remember the name of. It did not help her symptoms and she was switched to MTX. -Initially MTX controlled her symptoms but over the years, it was not helping her and was causing excessive hair fall. -She stopped taking methotrexate in 2021 and was started on prednisone 10 mg by her PCP -She has been off of Prednisone since October 2022 and denies any flares P: -Continue to hold MTX -Continue to hold Prednisone -We believe she is in remission and will monitor her off of medications -Gave dose pack in case of flares 2. Osteoporosis -Pt had a R heel fractures that was missed for 2 years -She has it operated in 2021 -DEXA showed T score -2.8 -Currently on Alendronate, started in 2021 P: -Repeat DEXA scan in 2023 3. Elevated LFTS- RESOLVED -Currently off methotrexate 4. Lower back pain-IMPROVED -On Lidocaine patches 5. Osteoarthritis -Currently on Aleve 6. R trochanteric bursitis -R trochanteric bursa tender on palpation P: -Discussed about CSI and conservative managem (more content not included)... [facility]08-29-2023 Note Attestation signed by Gem Kiser MD at 02/18/2023 9:51 AM I personally saw and examined the patient on the same date of service as resident/fellow . I discussed the findings and therapeutic plan with the resident/fellow . I agree with the documentation, except for any edits/updates below. Teaching Physician's Revisions: Subjective Patient ID: Alison Thurston is a 67 y.o. female who presents for No chief complaint on file.. HPI 67 year old female with h/o RA diagnosed approximately 30 years ago was referred to us by her PCP for medication management. She was seen as a new patient by us on 01/30/22. She is here for follow up. Pt reports that 30 years ago, she used to go a [employer] who diagnosed her with RA and started her on a medicine that she does not remember the name of. It did not help her symptoms and she was switched to MTX. Initially it controlled her symptoms but over the years, but later on it was not helping her. She stopped taking it sometime in mid 2021 and was started on prednisone 10 mg by her PCP. She was getting am stiffness which lasts her couple hours but was doing well since she started prednisone. She was concerned about excessive hair fall while being on methotrexate and there were plans to start her on Humira but it wasn't done due too her ankle surgery. Of note, she had L ankle surgery (2/2 fracture) and was informed by her Orthopedic surgeon that she saw weak bones and started her on Alendronate. We obtained a DEXA scan which showed Osteoporosis. On 09/08/22, patient reported that her joint pain and morning stiffness has completely resolved. She was successfully tapered off of Prednisone and has been off of methotrexate since mid 2021 approx. Today, she continues to report no flares. Have been off predniosne since approx October 2022 and is happy with her progress. Review of Systems Constitutional: Negative for activity change, appetite change, chills, diaphoresis and fatigue. HENT: Negative for dental problem, drooling, mouth sores, rhinorrhea, sinus pain, sore throat and tinnitus. Eyes: Negative for pain, redness and itching. Respiratory: Negative for cough, shortness of breath and stridor. Cardiovascular: Negative for chest pain and leg swelling. Gastrointestinal: Negative for abdominal pain, constipation, diarrhea, nausea and vomiting. Endocrine: Negative for cold intolerance and heat intolerance. Genitourinary: Negative for dysuria, frequency and urgency. Musculoskeletal: Negative for arthralgias, back pain, gait problem and joint swelling. Skin: Negative for color change and pallor. Objective There were no vitals taken for this visit. Physical Exam Constitutional: Appearance: Normal appearance. HENT: Head: Normocephalic and atraumatic. Nose: Nose normal. Mouth/Throat: Mouth: Mucous membranes are moist. Eyes: Extraocular Movements: Extraocular movements intact. Pulmonary: Effort: Pulmonary effort is normal. Musculoskeletal: General: Normal range of motion. Neurological: Mental Status: She is alert. Assessment/Plan There are no diagnoses linked to this encounter. 67 year old female with h/o RA diagnosed approximately 30 years ago is here for follow up. 1. H/O RA -Pt reports she was diagnosed more than 30 years ago approx -she was started her on a medicine that she does not remember the name of. It did not help her symptoms and she was switched to MTX. -Initially MTX controlled her symptoms but over the years, it was not helping her and was causing excessive hair fall. -She stopped taking methotrexate in 2021 and was started on prednisone 10 mg by her PCP -She has been off of Prednisone since October 2022 and denies any flares P: -Continue to hold MTX -Continue to hold Prednisone -If her disease continues to be well controlled we can assume that she is in remission and monitor her off of medications -Gave dose pack in case of flares 2. Osteoporosis -Pt had a R heel fractures that was missed for 2 years -She has it operated in 2021 -DEXA showed T score -2.8 -Currently on Alendronate, started in 2021 P: -Repeat DEXA scan in 2023 3. Elevated LFTS -Currently off methotrexate Plan: -Repeat labs ordered today to monitor LFTs 4. Lower back pain-IMPROVED -On Lidocaine patches Follow up in 4 months or early if needed [facility] NotePROCEDURE: XR FOOT LT MIN 3 VIEWS HISTORY: Pain in left foot ; post op fusion COMPARISON: XR foot left 04/28/2022 FINDINGS: BONES:Prosthetic spacer replacement of a portion of the posterior calcaneus abutting the talocalcaneal joint and fusion of the talocalcaneal joint. No evidence of hardware fracture or loosening. Multifocal moderate marked degenerative changes of the midfoot and fifth metatarsophalangeal joint. SOFT TISSUES:Mild soft tissue swelling throughout the foot and ankle. EFFUSION:None visible. OTHER: Negative. IMPRESSION: 1. Stable surgical changes without evidence of hardware failure or change in alignment. Electronically authenticated by: CASSIA CHARLTON Date: 2022-05-17 17:45[facility]11-[facility]20[facility] NotePROCEDURE: XR FOOT LT MIN 3 VIEWS HISTORY: WEAKNESS ; history of left heel debridement COMPARISON: XR foot left 03/27/2022 FINDINGS: BONES:Prosthetic replacement and fusion of the posterior talocalcaneal joint. Moderate degenerative changes the midfoot and fifth metatarsophalangeal joint. No fracture, dislocation, or appreciable cortical destruction. SOFT TISSUES:No visible soft tissue swelling. EFFUSION:None visible. OTHER: Negative. IMPRESSION: 1. Table surgical changes without evidence of hardware failure or change in alignment. 2. Multifocal moderate degenerative joint disease. 3. No evidence of osteomyelitis. Electronically authenticated by: CASSIA CHARLTON Date: 2022-04-28 10:40[facility]10-10-2022 NotePROCEDURE: XR FOOT LT MIN 3 VIEWS COMPARISON: 02/22/2022 HISTORY: Postoperative visit FINDINGS: BONES:Stable subtalar fusion with partial calcaneal and talus arthroplasty/implant. Moderate degenerative changes with joint space narrowing marginal osteophyte formation. Permeative pattern of the bones consistent with osteopenia. No acute fracture or dislocation. SOFT TISSUES:Wound VAC identified along the lateral and posterior ankle EFFUSION:None visible. OTHER: Negative. IMPRESSION: Interval placement of a wound VAC with stable hindfoot fusion Electronically authenticated by: IRAIDA CARROLL Date: 2022-03-27 16:23[facility]09-07-2022 NotePROCEDURE: XR FOOT LT MIN 3 VIEWS HISTORY: Pain in left foot ; healed incision dehiscence COMPARISON: XR foot left 02/07/2022 FINDINGS: BONES:Mechanical fusion of the talocalcaneal joint with spacer/lift placement posteriorly. Moderate degenerative changes the midfoot and generalized osteopenia throughout the foot. No hardware fracture or loosening. No bone fracture. SOFT TISSUES:Soft tissue defects posterior plantar aspect of calcaneus. EFFUSION:None visible. OTHER: Negative. IMPRESSION: 1. Stable surgical and degenerative changes; no evidence of hardware failure or change in alignment. 2. Posterior calcaneal soft tissue defect consistent with patient history. Electronically authenticated by: CASSIA CHARLTON Date: 2022-02-22 14:29[facility]08-23-2022 NotePROCEDURE: XR FOOT LT MIN 3 VIEWS COMPARISON: 01/06/2022 HISTORY: Pain in left foot FINDINGS: BONES:Stable partial resection of the calcaneus with placement of a prosthetic spacer and subtalar fusion. Complex calcaneus fracture with slight increase in sclerosis consistent with continued healing. Moderate to severe degenerative changes throughout the midfoot and at the fifth metatarsal pharyngeal joint. No new fracture or dislocation. Persistent flexion of the toes limits their evaluation. SOFT TISSUES:Negative. No visible soft tissue swelling. EFFUSION:None visible. OTHER: Soft tissue calcifications IMPRESSION: Stable subtalar fusion with spacer Continued healing of a complex calcaneus fracture Electronically authenticated by: IRAIDA CARROLL Date: 2022-02-07 17:49[facility]07-22-2022 NotePROCEDURE: XR FOOT LT MIN 3 VIEWS HISTORY: Pain in left foot COMPARISON: XR foot left 12/22/2021 FINDINGS: BONES:Prior fracture of calcaneus with partial resection and prosthetic spacer placement and fusion of the talocalcaneal joint. Moderate degenerative changes the midfoot. SOFT TISSUES:Mild posterior soft tissue swelling and numerous skin marivel. Cast material has been removed. EFFUSION:None visible. OTHER: Negative. IMPRESSION: 1. Stable surgical changes without evidence of hardware failure or change in alignment. Electronically authenticated by: CASSIA CHARLTON Date: 2022-01-06 17:10[facility] NotePROCEDURE: XR FOOT LT MIN 3 VIEWS HISTORY: Postoperative care COMPARISON: XR foot left 12/23/2019 07/28/1940 intraoperative images, 10/06/2021 FINDINGS: BONES:Spacer placement and securement is within the posterior talocalcaneal joint. Moderate degenerative joint disease of the midfoot. SOFT TISSUES:Posterior soft tissue swelling and subcutaneous air consistent with surgery earlier on same day. Posterior skin marivel. Images were obtained to cast material. EFFUSION:None visible. OTHER: Negative. IMPRESSION: 1. Posterior subtalar spacer placement and fusion. Stable compared to intraoperative images. Electronically authenticated by: CASSIA CHARLTON Date: 2021-12-23 08:10[id number] NotePROCEDURE: XR ANKLE LT 2V HISTORY: Pain COMPARISON: XR ankle left 10/06/2021 FINDINGS: BONES:Multiple intraoperative spot fluoroscopic images of the ankle joint demonstrate spacer placement between the talus and calcaneus secured with a screw. SOFT TISSUES:Expected intraoperative findings. EFFUSION:None visible. OTHER: Negative. IMPRESSION: 1. Spacer placement within the posterior talocalcaneal joint. Electronically authenticated by: CASSIA CHARLTON Date: 2021-12-23 08:08 [facility] Summary Purpose Family History No Family History Records FoundNo Family History Records Found Advance Directives No Advanced Directives Records FoundNo Advanced Directives Records Found Additional Source Comments INFORMATION SOURCE (unrecogn ized section and content) DATE CREATED AUTHOR 09/10/2022 [facility] DATE CREATED AUTHOR AUTHOR'S ORGANIZ ATION 11/21/2023 [facility] FOR RECORDS PERTAINING TO PATIENTS WHO ARE OR HAVE BEEN ENROLLED IN A CHEMICAL DEPENDENCY/SUBSTANCEABUSE PROGRAM, SOME INFORMATION MAY BE OMITTED. This clinical summary was aggregated from multiple sources. Caution should be exercised in using it in the provision of clinical care. This summary normalizes information from multiple sources, and as a consequence, information in this document may materially change the coding, format and clinical context of patient data. In addition, data may be omitted in some cases. CLINICAL DECISIONS SHOULD BE BASED ON THE PRIMARY CLINICAL RECORDS. [employer] provides no warranty or guarantee of the accuracy or completeness of information in this document.
[2025-05-21 18:28] LABS: Cast Seen? NONE SEEN #/LPF (NONE SEEN); Crystals Seen? None Seen #/HPF (None Seen)
[2025-05-21 18:29] LABS: Urine Culture Indicated YES-FRMC
--- NOTE | 2025-05-21 19:46 | ED.GENADUL1 ---
HPI HPI - General Adult General Chief complaint: Altered Mental Status Stated complaint: ALTERED MENTAL STATUS Time Seen by Provider: 05/21/25 17:32 Source: other Source information: ems Mode of arrival: ambulance Limitations: altered mental status History of Present Illness HPI narrative: This 69-year-old female was signed out to me at shift change. She was sent to the emergency department after being seen by her family physician's nurse practitioner for generalized weakness. The patient had foot surgery several years ago and since then has been having increasing weakness and difficulty walking. Most recently it has become increasingly severe to the point that the patient is unable to stand or help her get her to the bathroom. She stopped transferring to the bathroom and has been just going to the bathroom in a depends. The typically has her stand up and then cleans her up but most recently she cannot even stand up. She is generally weak. She states she is feeling better after getting some IV fluids. The patient's states that most recently she is not able to swallow her pills and is having trouble drinking. She has never been seen by neurology or had an MRI. The patient's states he can no longer care for her like this at home. She is able to bend her right knee and very gently push and pull her lower extremities. She has weak header boss strength but is unable to raise her arms over her head. Patient's states she has not had hardly anything to eat or drink over the past 3 to 4 days. I did review her labs. Her white count is mildly elevated at 14.3 with a hemoglobin of 15. Electrolytes are normal. BUN and creatinine are stable. Potassium is minimally low at 3.4. Lactic acid is normal. Troponin is normal. Urine is positive for trace leukocyte esterase and 5-10 white blood cells per high-power field. CT scan of the brain was negative for acute findings but did show chronic changes and chest x-ray was reviewed by radiology with any acute findings. Blood cultures are pending at this time. I did add on a COVID-19 and influenza test. COVID and influenza are both negative. The case was discussed with the hospitalist who agrees with the patient would benefit from a neurology consult and recommends transfer. I concern is that the patient has a progressive neuromuscular disease such as ALS, MS etc. This case was discussed with Dr. Myers at [facility] and she is accepted for transfer. Related Data Home Medications ?Medication ?Instructions ?Recorded ?Confirmed alendronate 70 mg tablet 70 mg PO .ONCE WEEKLY 12/15/22 05/21/25 atorvastatin 10 mg tablet 10 mg PO .QHS 12/15/22 05/21/25 folic acid 1 mg tablet 1 mg PO DAILY 12/15/22 12/15/22 indapamide 2.5 mg tablet 2.5 mg PO DAILY 12/15/22 05/21/25 meloxicam 15 mg tablet 15 mg PO DAILY 12/15/22 12/15/22 metformin 500 mg tablet 500 mg PO BID 12/15/22 05/21/25 methotrexate sodium 2.5 mg tablet 20 mg PO QWEEK 12/15/22 12/15/22 potassium chloride 10 mEq 40 meq PO DAILY 12/15/22 05/21/25 capsule,extended release prednisone 2.5 mg tablet 2.5 mg PO DAILY 12/15/22 12/15/22 trazodone 300 mg tablet 300 mg PO .at night 12/15/22 05/21/25 venlafaxine 75 mg capsule,extended 75 mg PO DAILY 12/15/22 05/21/25 release 24 hr pantoprazole 40 mg tablet,delayed 40 mg PO DAILY 12/16/22 12/16/22 release valacyclovir 500 mg tablet 500 mg PO DAILY 12/16/22 12/16/22 cholecalciferol (vitamin D3) 25 25 mcg PO DAILY 05/21/25 05/21/25 mcg (1,000 unit) capsule (Vitamin D3) oxaprozin 600 mg tablet mg 05/21/25 Previous Rx's ?Medication ?Instructions ?Recorded levofloxacin 500 mg tablet 500 mg PO DAILY 7 days #7 tabs 12/16/22 Allergies Allergy/AdvReac Type Severity Reaction Status Date / Time No Known Drug Allergies Allergy Verified 12/15/22 13:19 [facility] Medical History Social History (Updated 12/15/22 @ 16:18 by Mariya Hernandez) Within the past year, how often did you have a drink containing alcohol: never Within the past year, how often did you have six or more drinks on one occasion: never Score interpretation: A score less than 3 is consistent with normal alcohol consumption. 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 Highest level of school completed/degree received: high school graduate Are you now , , , , never or living with a partner: In a typical week, how many times do you talk on the telephone with family, friends, or neighbors: 3 or more times per week How often do you get together with friends or relatives: once per week How often do you attend pentecostal or congregation services: never Do you belong to any clubs or organizations such as pentecostal groups unions, [employer] or athletic groups, or school groups: no Total score: 2 Score interpretation: A score of greater than or equal to 2 indicates the lowest level of social isolation. Little interest or pleasure in doing things: not at all Feeling down, depressed, or hopeless: not at all Feel stressed/tense/nervous/anxious/difficulty sleeping: only a little Due to disability, difficulty making decisions: No Do you think of yourself as: straight/heterosexual Gender Identity: female Exam Constitutional Vital Signs, click to edit/add: Last Vital Signs Temp 98.8 F 05/21/25 17:24 Pulse 102 H 05/21/25 21:20 Resp 23 H 05/21/25 21:20 BP 139/102 H 05/21/25 21:15 Pulse Ox 94 L 05/21/25 19:40 O2 Del Method Room Air 05/21/25 17:24 Course Vital Signs Vital signs: Vital Signs Temperature 98.8 F 05/21/25 17:24 Pulse Rate 111 H 05/21/25 17:24 Respiratory Rate 16 05/21/25 17:24 Blood Pressure 156/115 H 05/21/25 17:24 Pulse Oximetry 92 L 05/21/25 17:24 Oxygen Delivery Method Room Air 05/21/25 17:24 Temperature 98.8 F 05/21/25 17:24 Pulse Rate 102 H 05/21/25 21:20 Respiratory Rate 23 H 05/21/25 21:20 Blood Pressure 139/102 H 05/21/25 21:15 Pulse Oximetry 94 L 05/21/25 19:40 Oxygen Delivery Method Room Air 05/21/25 17:24 Medical Decision Making Lab Data Labs: Lab Results 05/21/25 05/21/25 05/21/25 Range/Units 17:30 18:00 20:00 WBC 14.3 H (4.0-11.0) 10^3/uL RBC 5.58 H (4.20-5.40) 10^6/uL Hgb 15.2 (12.0-16.0) g/dL Hct 45.6 (36.0-48.0) % MCV 81.7 (81.0-99.0) fL MCH 27.2 (26.7-34.0) pg MCHC 33.3 (29.9-35.2) g/dL RDW 14.4 (11.0-15.0) % Plt Count 368 (150-450) 10^3/uL MPV 10.0 (9.5-13.5) fL Neut % (Auto) 73.1 (43.0-75.0) % Lymph % (Auto) 17.9 L (20.5-60.0) % Kay % (Auto) 7.0 (1.7-12.0) % Eos % (Auto) 1.3 (0.9-7.0) % Baso % (Auto) 0.4 (0.2-2.0) % Neut # (Auto) 10.4 H (1.4-6.5) 10^3/uL Lymph # (Auto) 2.6 (1.2-3.8) 10^3/uL Kay # (Auto) 1.0 H (0.3-0.8) 10^3/uL Eos # (Auto) 0.2 (0.0-0.7) 10^3/uL Baso # (Auto) 0.1 (0.0-0.1) 10^3/uL Abs Immat Gran (auto) 0.05 H (0.00-0.03) 10^3/uL Imm/Tot Granulo (auto) 0.3 (0.0-0.5) % Sodium 137 (136-145) mmol/L Potassium 3.4 L (3.5-5.1) mmol/L Chloride 96 L (98-107) mmol/L Carbon Dioxide 29.1 (21.0-32.0) mmol/L Anion Gap 15.3 BUN 7.0 (7.0-18.0) mg/dL Creatinine 0.71 (0.55-1.02) mg/dL Est GFR ( Amer) >60 (>=60 mL/min/1.73m^2) Est GFR (Non-Af Amer) >60 (>=60 mL/min/1.73m^2) BUN/Creatinine Ratio 9.9 Glucose 150 H (74-106) mg/dL Lactate 1.1 (0.4-2.0) mmol/L Calcium 9.4 (8.5-10.1) mg/dL Total Bilirubin 0.5 (0.2-1.0) mg/dL Direct Bilirubin 0.2 (0.0-0.2) mg/dL AST 19 (15-37) U/L ALT 16 (14-59) U/L Alkaline Phosphatase 78 (46-116) U/L Troponin I High Sens <4.0 L (4.0-51.3) pg/mL Total Protein 8.6 H (6.4-8.2) g/dL Albumin 3.6 (3.4-5.0) g/dL Globulin 5.0 g/dL Albumin/Globulin Ratio 0.7 Urine Color Lt. yellow (YELLOW) Urine Clarity Clear (CLEAR) Urine pH 5.5 (5.0-9.0) Ur Specific [place] 1.025 (1.005-1.025) Urine Protein Trace (NEG/TRACE) mg/dL Urine Glucose (UA) Negative (NEGATIVE) mg/dL Urine Ketones 40 A (NEGATIVE) mg/dL Urine Occult Blood Trace-i (NEGATIVE) Urine Nitrite Negative (NEGATIVE) Urine Bilirubin Moderate A (NEGATIVE) Urine Urobilinogen 1.0 (0.2-1.0) EU/dL Ur Leukocyte Esterase Trace A (NEGATIVE) Urine RBC 0-2 (0-2) #/HPF Urine WBC 5-10 A (NONE SEEN) #/HPF Ur Squamous Epith Cells Few A (NONE/RARE) #/LPF Urine Crystals None seen (None Seen) #/HPF Urine Bacteria Small A (NONE SEEN) #/HPF Urine Casts None seen (NONE SEEN) #/LPF Urine Mucus Small A (NONE SEEN) Ur [place] [place] Type A Ag Negative Influenza Type B Ag Negative SARS-CoV-2 Ag (CV2AG) Negative (NEGATIVE) Imaging Data Chest x-ray: Radiologist's impression: ITS Impressions Chest X-Ray 05/21/25 17:37 IMPRESSION: NEGATIVE ACUTE PLEURAL-PARENCHYMAL DISEASE. Impression dictated by: Obdulio Martin M.D. 05/21/2025 6:48 PM Dictation Location: [employer] Electronically authenticated by: [id number] Y Date: 05/21/2025 18:[address] 05/21/25 17:37 IMPRESSION: NO ACUTE INTRACRANIAL ABNORMALITY. CHRONIC SMALL VESSEL ISCHEMIC DISEASE. Impression dictated by: Obdulio Martin M.D. 05/21/2025 6:52 PM Dictation Location: [employer] Electronically authenticated by: [id number] Y Date: 05/21/2025 18:52 Discharge Plan Discharge Chief Complaint: Altered Mental Status Clinical Impression: Progressive muscle weakness, Acute UTI Patient Disposition: [facility] Time of Disposition Decision: 22:04 Discharge Location: [facility]
[2025-05-21 20:21] LABS: SARS-CoV-2 Ag NEGATIVE (NEGATIVE)
== END 2025-05-21 23:50 | disposition short-term general hospital (02) ==
PROVIDERS: Emergency Medicine; Emergency Provider Emergency Medicine; PCP Family Medicine
DX: M62.81 Muscle weakness (generalized) (principal); N39.0 Urinary tract infection, site not specified; F17.200 Nicotine dependence, unspecified, uncomplicated
CPT/HCPCS: 36415; 51702; 70450; 71045; 80048; 80076; 81001; 83605; 84484; 85025; 87040; 87086; 87804; 87811; 93005; 96361; 96365; 99285; J0696